=== PATIENT | female | born 1950 | race Caucasian/White ===

== ENCOUNTER → 2017-09-01 | Outpatient (CLI) | payer MEDICARE ==
--- NOTE | 2017-09-04 20:05 | Diagnostic Imaging Report ---
Bilateral screening mammogram 2D views with tomosynthesis. The current study was also evaluated with a Computer Aided Detection (CAD) system. INDICATION: Screening. No current complaints stated on the questionnaire. COMPARISON: 08/31/2016. FINDINGS: The breasts are composed of scattered fibroglandular densities. There are benign-appearing calcifications seen. Allowing for technique and positional differences, no suspicious change is seen. IMPRESSION: No significant change. ACR BI-RADS Category 2: Benign findings. Result letter will be mailed to the patient. Note: At least 10% of breast cancer is not imaged by mammography. Dictated by: Dictated on workstation # [id number]
== END ==
LOC: RAD 09:34
PROVIDERS: ATTEND Nurse Practitioner Family
DX: Z12.31 Encounter for screening mammogram for malignant neoplasm of breast (principal)
CPT/HCPCS: 77067

== ENCOUNTER → 2018-06-20 | Outpatient (CLI) | payer MEDICARE ==
--- NOTE | 2018-06-20 16:23 | Diagnostic Imaging Report ---
PROCEDURE: US right lower extremity venous. TECHNIQUE: Multiple real-time grayscale images were obtained over the right lower extremity in various projections. Additional duplex Doppler and color Doppler images were also obtained. INDICATION: Right leg pain. FINDINGS: There is no evidence of a right lower extremity DVT. The right lower extremity deep venous system shows normal compressibility with normal response to augmentation and Valsalva. There is a Dowell's cyst measuring 4.2 x 1.6 x 0.7 cm. IMPRESSION: 1. No evidence of right lower extremity DVT. 2. Dowell's cyst. Dictated by: Dictated on workstation # [id number]
== END ==
LOC: RAD 15:39
PROVIDERS: ATTEND Nurse Practitioner Family
DX: M71.21 Synovial cyst of popliteal space [Baker], right knee (principal); M79.604 Pain in right leg

== ENCOUNTER → 2018-06-22 | Outpatient (CLI) | payer MEDICARE ==
--- NOTE | 2018-06-22 11:53 | Diagnostic Imaging Report ---
PROCEDURE: MRI right joint lower extremity without contrast. TECHNIQUE: Multiplanar, multisequence non contrast-enhanced MRI of the right lower extremity was accomplished. INDICATION: Posterior knee pain of three weeks' duration, difficulty walking, no known discrete injury. FINDINGS: There is a small popliteal fossa Dowell's cyst measuring 1.3 x 0.5 x 1.9 cm, decreased from earlier ultrasound when it measured 4.2 x 1.6 x 0.7 cm. There is some adjacent nonloculated fluid peripheral to the elongated cyst, and it is presumed to reflect interval partial cystic rupture and decompression. The popliteus is intact, and no evidence for soft tissue signal intensity mass in the posterior knee. There is some subcutaneous edema anteriorly as well as tricompartmental osteoarthritis. Tibiofemoral disease is medial greater than lateral and the patellofemoral disease is lateral greater than medial. There is a subcortical cyst in the patella at its apex and upper lateral facet with generalized articular cartilage thinning. There is mild thinning of the trochlear cartilage without full-thickness defect. The retinaculum is intact. The medial and lateral collateral ligament complex components crossing the knee joint are intact. The patellar and quadriceps tendons are intact. There is medial and lateral meniscal intrasubstance degeneration without convincing evidence for angelic meniscal tear or displacement. The ACL and PCL are intact. IMPRESSION: When correlated with recent ultrasound, there has been partial rupture and decompression of the Dowell's cyst with adjacent nonloculated fluid. Residual cystic dimensions above. Joint effusion, tricompartmental osteoarthritis, meniscal degeneration. No tendon or ligament rupture. No loose body or fracture. Dictated by: Dictated on workstation # [id number]
== END ==
LOC: RAD 08:39
PROVIDERS: ATTEND Nurse Practitioner Family
DX: M66.0 Rupture of popliteal cyst (principal); M17.11 Unilateral primary osteoarthritis, right knee
CPT/HCPCS: 73721

== ENCOUNTER 2018-09-05 22:27 | Emergency (ER) | payer MEDICARE ==
[~2018-09-05] VITALS: Ht 162.6 cm; Wt 102.1 kg
--- OUTSIDE RECORDS SUMMARY | 2018-09-05 22:35 | XMS REPORT | CCD ---
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 Name Role Phone Inez Morris PP Unavailable CCM Unavailable Summary Purpose Interface Exchange Insurance Providers Payer name Policy type / Coverage type Covered constitution party ID Effective Begin Date Effective End Date WPS Medicare Part B Medicare Part B [id number] 2015 Unknown AARP Medicare Part B [id number] 2015 Unknown Family history Mother Diagnosis Age At Onset Hypertension Unknown Diabetes Unknown Brother Diagnosis Age At Onset Coronary Artery Disease Unknown Diabetes mellitus Type 2 Unknown Father Diagnosis Age At Onset Diabetes Unknown lung cancer Unknown Social History Social History Element Codes Description Effective Dates Marital status Unknown 05/07/2014 Number of children Unknown 3 05/07/2014 Living arrangements Unknown House 05/07/2014 Number of adults in household Unknown 1 05/07/2014 Education level Unknown Post-Graduate 05/07/2014 Employment Unknown Retired 05/07/[address]: 091537789 Never smoker 05/07/[address]: 262657924 Never drinks alcohol 05/07/2014 Has the patient ever used illegal drugs? Unknown Has never used illegal drugs 05/07/2014 Allergies, Adverse Reactions, Alerts Substance Reaction Codes Entered Date Inactivated Date Status * NO KNOWN FOOD ALLERGIES Unknown 05/07/2014 No Inactive Date Active hydrocodone Unknown 05/07/2014 No Inactive Date Active Past Medical History Illness Codes Condition Status Onset Date Resolved Date Essential (primary) hypertension ICD-9: 401.1 ICD-10: I10 Active 12/07/2016 Unknown Insomnia due to medical condition ICD-9: 327.01 ICD-10: G47.01 Active 06/07/2018 Unknown Other obesity due to excess calories ICD-9: 278.00 ICD-10: E66.09 Active 05/07/2014 Unknown Tinea corporis ICD-9: 110.5 ICD-10: B35.4 Active 06/07/2018 Unknown Type 2 diabetes mellitus with diabetic autonomic (poly) neuropathy ICD-9: 250.60 ICD-10: E11.43 Active 07/24/2017 Unknown Mixed hyperlipidemia ICD-9: 272.2 ICD-10: E78.2 Active 08/02/2016 Unknown Type 2 diabetes mellitus without complications ICD-9: 250.00 ICD-10: E11.9 Active 05/15/2014 Unknown Other acute sinusitis ICD-9: 461.8 ICD-10: J01.80 Active 11/30/2016 Unknown Other allergic rhinitis ICD-9: 477.8 ICD-10: J30.89 Active 11/02/2016 Unknown Encounter for immunization ICD-9: V04.81 ICD-10: Z23 Active 07/26/2016 Unknown Encounter for screening mammogram for malignant neoplasm of breast ICD-9: V76.12 ICD-10: Z12.31 Active 06/08/2017 Unknown Mixed hyperlipidemia ICD-9: 272.4 ICD-10: E78.2 Active 07/26/2016 Unknown Mixed incontinence ICD -9: 788.33 ICD-10: N39.46 Active 12/07/2016 Unknown Acute nasopharyngitis [common cold] ICD-9: 460 ICD-10: J00 Active 11/02/2016 Unknown Actinic keratosis ICD- 9: 702.0 ICD-10: L57.0 Active 08/02/2016 Unknown Inflamed seborrheic keratosis ICD-9: 702.11 ICD-10: L82.0 Active 08/02/2016 Unknown Essential (primary) hypertension ICD-9: 401.9 ICD-10: I10 Active 07/26/2016 Unknown Encounter for general adult medical examination without abnormal findings ICD-9: V70.0 ICD-10: Z00.00 Active 12/30/2015 Unknown Rash and other nonspecific skin eruption ICD-9: 782.1 ICD-10: R21 Active 11/03/2015 Unknown Encounter for gynecological examination (general) (routine ) without abnormal findings ICD-9: V72.31 ICD-10: Z01.419 Active 08/01/2014 Unknown Heel pain ICD-9: 729.5 Active 12/10/2014 Unknown Plantar fascia syndrome ICD-9: 728.71 Active 12/10/2014 Unknown Osteoarthritis Unknown Active 08/01/2014 Unknown ROUTINE GYNE EXAM ICD- 9: V72.31 Active 08/01/2014 Unknown DIABETES TYPE II ICD-9 : 250.00 Active 05/15/2014 Unknown Depression Unknown Active 05/07/2014 Unknown Diabetes Unknown Active 05/07/2014 Unknown Hyperlipidemia Unknown Active 05/07/2014 Unknown Hypertension Unknown Active 05/07/2014 Unknown Depressive disorder ICD-9: 311 Active 05/07/2014 Unknown ESSENTIAL HYPERTENSION ICD-9: 401.9 Active 05/07/2014 Unknown HYPERLIPIDEMIA ICD-9: 272.4 Active 05/07/2014 Unknown Myalgia and myositis ICD-9: 729.1 Active 05/07/2014 Unknown OBESITY ICD-9: 278.00 Active 05/07/2014 Unknown Urinary urgency ICD-9 : 788.63 Active 05/07/2014 Unknown Problems Condition Codes Effective Dates Condition Status Essential (primary) hypertension ICD-9: 401.1 ICD-10: I10 12/07/2016 Active Insomnia due to medical condition ICD-9: 327.01 ICD-10: G47.01 06/07/2018 Active Other obesity due to excess calories ICD-9: 278.00 ICD-10: E66.09 05/07/2014 Active Tinea corporis ICD-9: 110.5 ICD-10: B35.4 06/07/2018 Active Type 2 diabetes mellitus with diabetic autonomic (poly) neuropathy ICD-9: 250.60 ICD-10: E11.43 07/24/2017 Active Mixed hyperlipidemia ICD-9: 272.2 ICD-10: E78.2 08/02/2016 Active Type 2 diabetes mellitus without complications ICD-9: 250.00 ICD-10: E11.9 05/15/2014 Active Other acute sinusitis ICD-9: 461.8 ICD-10: J01.80 11/30/2016 Active Other allergic rhinitis ICD-9: 477.8 ICD-10: J30.89 11/02/2016 Active Encounter for immunization ICD-9: V04.81 ICD-10: Z23 07/26/2016 Active Encounter for screening mammogram for malignant neoplasm of breast ICD-9: V76.12 ICD-10: Z12.31 06/08/2017 Active Mixed hyperlipidemia ICD-9: 272.4 ICD-10: E78.2 07/26/2016 Active Mixed incontinence ICD -9: 788.33 ICD-10: N39.46 12/07/2016 Active Acute nasopharyngitis [common cold] ICD-9: 460 ICD-10: J00 11/02/2016 Active Actinic keratosis ICD- 9: 702.0 ICD-10: L57.0 08/02/2016 Active Inflamed seborrheic keratosis ICD-9: 702.11 ICD-10: L82.0 08/02/2016 Active Essential (primary) hypertension ICD-9: 401.9 ICD-10: I10 07/26/2016 Active Encounter for general adult medical examination without abnormal findings ICD-9: V70.0 ICD-10: Z00.00 12/30/2015 Active Rash and other nonspecific skin eruption ICD-9: 782.1 ICD-10: R21 11/03/2015 Active Encounter for gynecological examination (general) (routine ) without abnormal findings ICD-9: V72.31 ICD-10: Z01.419 08/01/2014 Active Heel pain ICD-9: 729.5 12/10/2014 Active Plantar fascia syndrome ICD-9: 728.71 12/10/2014 Active Osteoarthritis Unknown 08/01/2014 Active ROUTINE GYNE EXAM ICD- 9: V72.31 08/01/2014 Active DIABETES TYPE II ICD-9 : 250.00 05/15/2014 Active Depression Unknown 05/07/2014 Active Diabetes Unknown 05/07/2014 Active Hyperlipidemia Unknown 05/07/2014 Active Hypertension Unknown 05/07/2014 Active Depressive disorder ICD-9: 311 05/07/2014 Active ESSENTIAL HYPERTENSION ICD-9: 401.9 05/07/2014 Active HYPERLIPIDEMIA ICD-9: 272.4 05/07/2014 Active Myalgia and myositis ICD-9: 729.1 05/07/2014 Active OBESITY ICD-9: 278.00 05/07/2014 Active Urinary urgency ICD-9 : 788.63 05/07/2014 Active Medications Medication Codes Instructions Start Date Stop Date Status Fill Instructions alprazolam 0.25 mg tablet RxNorm: 905594 1 Tablet(s) PO TID as needed 06/08/2018 03/04/2019 Active nystatin 100,000 unit/gram topical cream RxNorm: 413140 1 Gram(s) TOP TID 06/07/2018 06/26/2018 Active scopolamine 1 mg over 3 days transdermal patch RxNorm: 732748 1 Patch TD Q72H 06/07/2018 06/19/2018 Active metformin 500 mg tablet RxNorm: 194758 TAKE 1/2 TABLET TWICE DAILY 04/12/2018 04/06/2019 Active oxybutynin chloride ER 10 mg tablet,extended release 24 hr RxNorm: 743520 1 Tablet (s) PO daily 03/01/2018 02/23/2019 Active citalopram 20 mg tablet RxNorm: 057234 TAKE 1 TABLET EVERY DAY 01/15/2018 01/09/2019 Active atorvastatin 10 mg tablet RxNorm: 248416 TAKE 1/2 TABLET DAILY 01/03/2018 12/28/2018 Active oxybutynin chloride ER 10 mg tablet,extended release 24 hr RxNorm: 682802 1 Tablet (s) PO daily 12/07/2017 02/28/2018 Inactive Kenalog 40 mg/mL suspension for injection RxNorm: 5190183 1 Milliliter(s) Inj 11/20/2017 11/20/2017 Inactive Keflex 500 mg capsule RxNorm: 263200 1 Capsule(s) PO TID 201711/29/2017 Inactive losartan 25 mg tablet RxNorm: 919787 TAKE 1 TABLET EVERY DAY 11/07/2018 Active Valtrex 1 gram tablet RxNorm: 996384 1 Tablet(s) PO daily as needed 09/20/2017 No Stop Date Active Valtrex 1 gram tablet RxNorm: 506627 1 Tablet(s) PO daily as needed 06/28/2017 09/19/2017 Inactive Transderm-Scop 1.5 mg transdermal patch (1 mg over 3 days) RxNorm: 244372 1 Patch TD Q72H 06/08/2017 06/20/2017 Inactive nystatin 100,000 unit/gram topical cream RxNorm: 934188 1 Gram(s) TOP TID 06/08/2017 06/27/2017 Inactive alprazolam 0.25 mg tablet RxNorm: 497324 1 Tablet(s) PO TID as needed 04/21/2017 07/19/2017 Inactive metformin 500 mg tablet RxNorm: 901574 1/2 Tablet(s) PO BID 09/201701/19/2018 Inactive estradiol 0.5 mg tablet RxNorm: 953921 1 Tablet(s) PO BID 01/2001/14/2018 Inactive metformin 500 mg tablet RxNorm: 404302 1/2 Tablet(s) PO BID 04/201701/24/2017 Inactive estradiol 0.5 mg tablet RxNorm: 184120 1 Tablet(s) PO BID 01/1601/19/2017 Inactive metformin 500 mg tablet RxNorm: 123144 1/2 Tablet(s) PO BID 12/201601/19/2017 Inactive atorvastatin 10 mg tablet RxNorm: 286192 1/2 Tablet(s) PO daily 12/07/2016 12/01/2017 Inactive losartan 25 mg tablet RxNorm: 077016 1 Tablet(s) PO daily 201609/02/2017 Inactive trospium 20 mg tablet RxNorm: 240719 1 Tablet(s) PO BID 201612/06/2017 Inactive citalopram 20 mg tablet RxNorm: 435887 1 Tablet(s) PO daily 12/01/2017 Inactive Keflex 500 mg capsule RxNorm: 983539 1 Capsule(s) PO TID 201612/09/2016 Inactive trospium 20 mg tablet RxNorm: 731225 1 Tablet(s) PO BID 201612/06/2016 Inactive amoxicillin 500 mg capsule RxNorm: 329060 1 Capsule(s) PO TID 11/04/2016 11/13/2016 Inactive amoxicillin 500 mg capsule RxNorm: 957758 1 Capsule(s) PO TID 11/04/2016 11/03/2016 Inactive Flonase Allergy Relief 50 mcg/actuation nasal spray, suspension RxNorm: 1500635 1 [place] NASAL BID 11/03/2016 No Stop Date Active Myrbetriq 50 mg tablet,extended release RxNorm: 3288973 1 Tablet(s) PO daily 11/03/2016 12/06/2017 Inactive Zyrtec 10 mg tablet RxNorm: 7938454 1 Tablet(s) PO daily 11/0312/02/2016 Inactive estradiol 0.5 mg tablet RxNorm: 940569 1 Tablet(s) PO BID 08/0301/15/2017 Inactive Transderm-Scop 1.5 mg transdermal patch (1 mg over 3 days) RxNorm: 430137 1 Patch TD Q72H 08/03/2016 09/01/2016 Inactive trospium 20 mg tablet RxNorm: 408387 1 Tablet(s) PO BID 201511/21/2016 Inactive trospium 20 mg tablet RxNorm: 625732 1 Tablet(s) PO BID 201512/06/2017 Inactive Valtrex 1 gram tablet RxNorm: 798109 1 Tablet(s) PO TID as needed 05/04/2016 05/07/2016 Inactive Valtrex 1 gram tablet RxNorm: 149280 1 Tablet(s) PO TID as needed 05/04/2016 05/03/2016 Inactive lisinopril 10 mg tablet RxNorm: 543219 1 Tablet(s) PO daily 12/06/2016 Inactive estradiol 1 mg tablet RxNorm: 856035 Tablet(s) 1 TABLET(S) PO DAILY 04/29/2016 08/02/2016 Inactive metformin 500 mg tablet RxNorm: 184843 1/2 Tablet(s) PO BID 01/201601/15/2017 Inactive estradiol 1 mg tablet RxNorm: 933980 Tablet(s) 1 TABLET(S) PO DAILY 02/17/2016 04/28/2016 Inactive citalopram 20 mg tablet RxNorm: 831963 1 Tablet(s) PO daily 12/06/2016 Inactive atorvastatin 10 mg tablet RxNorm: 447222 1/2 Tablet(s) PO daily 01/12/2016 12/06/2016 Inactive atorvastatin 10 mg tablet RxNorm: 513673 1/2 Tablet(s) PO daily 01/05/2016 01/11/2016 Inactive lisinopril 10 mg tablet RxNorm: 998872 2 Tablet(s) PO daily 04/28/2016 Inactive citalopram 20 mg tablet RxNorm: 888877 1 Tablet(s) PO daily 01/11/2016 Inactive betamethasone valerate 0.1 % topical cream RxNorm: 691135 1 Application TOP TID as needed 12/31/2015 No Stop Date Active prednisone 20 mg tablet RxNorm: 360755 3 Tablet(s) PO daily 11/08/2015 Inactive estradiol 1 mg tablet RxNorm: 319900 1 TABLET(S) PO DAILY 201402/16/2016 Inactive aspirin 81 mg capsule,delayed release RxNorm: 409636 1 Capsule(s) PO daily 09/08/2015 09/01/2016 Inactive naproxen 500 mg tablet RxNorm: 311259 1 Tablet(s) PO BID as needed for pain 09/08/2015 09/01/2016 Inactive nystatin 100,000 unit/gram topical cream RxNorm: 870354 1 Gram(s) TOP TID 09/08/2015 09/27/2015 Inactive naproxen 500 mg tablet RxNorm: 769841 1 Tablet(s) PO BID as needed for pain 09/08/2015 09/07/2015 Inactive alprazolam 0.25 mg tablet RxNorm: 224106 1 Tablet(s) PO TID as needed 08/17/2015 04/20/2017 Inactive atorvastatin 10 mg tablet RxNorm: 575171 1/2 Tablet(s) PO daily 05/07/2015 01/04/2016 Inactive estradiol 1 mg tablet RxNorm: 776361 1 Tablet(s) PO daily 201408/12/2015 Inactive metformin 500 mg tablet RxNorm: 302213 1/2 Tablet(s) PO BID 11/201402/16/2016 Inactive citalopram 20 mg tablet RxNorm: 139995 1 Tablet(s) PO daily 11/201401/04/2016 Inactive metformin 500 mg tablet RxNorm: 760154 1/2 Tablet(s) PO BID 07/201501/14/2015 Inactive metformin 500 mg tablet RxNorm: 295477 1/2 Tablet(s) PO QHS x1 week then increase to 1/2 BID 12/23/2014 04/11/2018 Inactive metformin 500 mg tablet RxNorm: 334395 1/2 Tablet(s) PO QHS x1 week then 1/2 tab po BID there after 12/23/2014 12/22/2014 Inactive metformin 500 mg tablet RxNorm: 935322 1/2 Tablet(s) PO BID 07/201512/22/2014 Inactive Kenalog 40 mg/mL suspension for injection RxNorm: 6922509 1 Milliliter(s) Inj 12/19/2014 12/19/2014 Inactive lisinopril 10 mg tablet RxNorm: 704692 1 Tablet(s) PO daily 01/04/2016 Inactive alprazolam 0.25 mg tablet RxNorm: 568463 1 Tablet(s) PO TID as needed 12/10/2014 08/16/2015 Inactive trospium 20 mg tablet RxNorm: 082358 1 Tablet(s) PO BID START WITH DAILY, AND INCREASE TO BID IF NEEDED FOR TX OF INCONTINENCE 12/10/2014 07/26/2016 Inactive trospium 20 mg tablet RxNorm: 234625 1 Tablet(s) PO BID START WITH DAILY, AND INCREASE TO BID IF NEEDED FOR TX OF INCONTINENCE 11/28/2014 12/09/2014 Inactive trospium 20 mg tablet RxNorm: 625319 1 Tablet(s) PO BID START WITH DAILY, AND INCREASE TO BID IF NEEDED FOR TX OF INCONTINENCE 11/28/2014 11/27/2014 Inactive lisinopril 10 mg tablet RxNorm: 764206 TAKE ONE TABLET BY MOUTH DAILY 11/17/2014 12/16/2014 Inactive Vesicare 10 mg tablet RxNorm: 956503 1 Tablet(s) PO daily 201411/27/2014 Inactive lisinopril 10 mg tablet RxNorm: 072719 1 Tablet(s) PO daily 12/09/2014 Inactive lisinopril 10 mg tablet RxNorm: 486386 1 Tablet(s) PO daily 10/04/2014 Inactive citalopram 20 mg tablet RxNorm: 589626 1 Tablet(s) PO daily 01/14/2015 Inactive Vesicare 10 mg tablet RxNorm: 315242 1 Tablet(s) PO daily 201311/16/2014 Inactive lisinopril 10 mg tablet RxNorm: 464491 1/2 Tablet(s) PO daily 05/07/2014 06/05/2014 Inactive Belviq 10 mg tablet RxNorm: 2121258 1 Tablet(s) PO BID 201309/04/2014 Inactive atorvastatin 10 mg tablet RxNorm: 662918 1/2 Tablet(s) PO daily 05/07/2014 06/05/2014 Inactive citalopram 20 mg tablet RxNorm: 116179 1/2 Tablet(s) PO daily 05/07/2014 06/05/2014 Inactive estradiol 1 mg tablet RxNorm: 577478 1 Tablet(s) PO daily 201306/05/2014 Inactive Vitamin D3 1,000 unit capsule RxNorm: 437610 Capsule(s) PO daily No Start Date Active Centrum Silver tablet RxNorm: 1 Tablet(s) PO daily No Start Date Active Caltrate 600 + D oral RxNorm: 088806 oral No Start Date Active naproxen 500 mg tablet RxNorm: 921295 1 Tablet(s) PO BID as needed No Start Date 05/06/2014 Inactive Vesicare 10 mg tablet RxNorm: 373939 1 Tablet(s) PO daily No Start Date 07/20/2014 Inactive alprazolam 0.25 mg tablet RxNorm: 967774 1 Tablet(s) PO TID as needed No Start Date 12/09/2014 Inactive Medication Administered Medication Codes Instructions Start Date Status Kenalog 40 mg/mL suspension for injection RxNorm: 2788894 1Milliliter 11/20/2017 No longer Active Kenalog 40 mg/mL suspension for injection RxNorm: 7968340 1Milliliter 12/19/2014 No longer Active Immunizations Vaccine Codes Date Status Influenza CVX: 141 07/24/2017 completed Influenza CVX: 141 07/27/2016 completed Influenza CVX: 141 08/16/2015 completed Influenza CVX: 141 07/16/2013 completed Pneumococcal Unknown 07/16/2012 completed Assessments Condition Codes Effective Dates Other obesity due to excess calories ICD-10: E66.09 ICD-9: 278.00 06/07/2018 Insomnia due to medical condition ICD-10: G47.01 ICD-9: 327.01 06/07/2018 Essential (primary) hypertension ICD-10: I10 ICD-9: 401.1 06/07/2018 Type 2 diabetes mellitus with diabetic autonomic (poly)neuropathy ICD-10: E11.43 ICD-9: 250.60 06/07/2018 Tinea corporis ICD-10: B35.4 ICD-9: 110.5 06/07/2018 Type 2 diabetes mellitus without complications ICD-10: E11.9 ICD-9: 250.00 12/07/2017 Mixed hyperlipidemia ICD-10: E78.2 ICD-9: 272.2 12/07/2017 Other allergic rhinitis ICD-10: J30.89 ICD-9: 477.8 11/20/2017 Other acute sinusitis ICD-10: J01.80 ICD-9: 461.8 11/20/2017 Encounter for immunization ICD-10: Z23 ICD-9: V04.81 07/24/2017 Encounter for screening mammogram for malignant neoplasm of breast ICD-10: Z12.31 ICD-9: V76.12 06/08/2017 Mixed hyperlipidemia ICD-10: E78.2 ICD-9: 272.4 06/08/2017 Mixed incontinence ICD-10: N39.46 ICD-9: 788.33 12/07/2016 Acute nasopharyngitis [common cold] ICD-10: J00 ICD-9: 460 11/03/2016 Inflamed seborrheic keratosis ICD-10: L82.0 ICD-9: 702.11 08/03/2016 Actinic keratosis ICD-10: L57.0 ICD-9: 702.0 08/03/2016 Essential (primary) hypertension ICD-10: I10 ICD-9: 401.9 07/27/2016 Encounter for general adult medical examination without abnormal findings ICD-10: Z00.00 ICD-9: V70.0 12/31/2015 Rash and other nonspecific skin eruption ICD-10: R21 ICD-9: 782.1 11/04/2015 Encounter for gynecological examination (general) (routine) without abnormal findings ICD-10: Z01.419 ICD-9: V72.31 09/08/2015 Right foot pain ICD-9: 729.5 02/19/2015 Plantar fascia syndrome ICD-9: 728.71 02/2015 ESSENTIAL HYPERTENSION ICD-9: 401.9 09/05 Depressive disorder ICD-9: 311 2013 ROUTINE GYNE EXAM ICD-9: V72.31 2013 DIABETES TYPE II ICD-9: 250.00 2013 Myalgia and myositis ICD-9: 729.1 2013 OBESITY ICD-9: 278.00 05/07/2014 Urinary urgency ICD-9: 788.63 05/07/2014 HYPERLIPIDEMIA ICD-9: 272.4 05/07/2014 Reason For Visit Reason For Visit Effective Dates Notes weight gain/obesity 06/07/2018 sinus congestion 12/07/2017 ongoing sinus congestion 11/20/2017 diabetes mellitus 07/24/2017 hypertension 06/08/2017 hypertension 12/07/2016 sinus congestion 11/30/2016 cough 11/03/2016 hypertension 08/03/2016 vaccination against influenza 07/27/2016 hypertension 04/05/2016 Annual Medicare Wellness Exam 12/31/2015 rash 11/04/2015 well woman exam (40-65 years) 09/08/2015 foot pain 02/19/2015 Right heel pain 12/18/2014 Right heel pain 12/10/2014 Right urinary incontinence 09/05/2014 well woman exam (40-65 years) 08/01/2014 urinary incontinence 05/07/2014 Results Observation Observation Code Item Item Code Result Date Comp Metabolic Trw683 NA 139 mEq/L 05/31/2018 Comp Metabolic Xfi532 K 4.0 mEq/L 05/31/2018 Comp Metabolic Thb651 CL 103 mEq/L 05/31/2018 Comp Metabolic Uzn583 CO2 28.0 mEq/L 05/31/2018 Comp Metabolic Qzh762 ANION GAP 12 05/31/2018 Comp Metabolic Uhg217 GLUCOSE 119 mg/dL 05/31/2018 Comp Metabolic Sav767 Creat 0.8 mg/dL 05/31/2018 Comp Metabolic Ffz087 eGFR 74 ml/min/1.73m2 05/31/2018 Comp Metabolic Mzt025 BUN 14 mg/dL 05/31/2018 Comp Metabolic Uuk345 B/C Ratio 17.1 Ratio 05/31/2018 Comp Metabolic Koy624 CALCIUM 8.9 mg/dL 05/31/2018 Comp Metabolic Zqq118 ALK PHOS 63 U/L 05/31/2018 Comp Metabolic Rno618 AST(SGOT) 16 U/L 05/31/2018 Comp Metabolic Ftc331 ALT(SGPT) 14 U/L 05/31/2018 Comp Metabolic Pzd253 BILI T 0.7 mg/dL 05/31/2018 Comp Metabolic Rep945 ALBUMIN 3.7 g/dL 05/31/2018 Comp Metabolic Lak032 TPRO 6.3 g/dL 05/31/2018 Comp Metabolic Isa803 GLOB 2.6 g/dL 05/31/2018 Comp Metabolic Coj786 A/G Ratio 1.4 Ratio 05/31/2018 Comp Metabolic Ejc988 Osmo 279 mOsmo 05/31/2018 %Hba1C Qfo210 % HbA1c 65485-4 6.2 % 05/31/2018 %Hba1C Vhu379 Gluc Ave 131 mg/dL 05/31/2018 Cbc With Differential Ord2 WBC 5.90 K/ul 05/31/2018 Cbc With Differential Ord2 RBC 4.15 M/ul 05/31/2018 Cbc With Differential Ord2 HGB 12.3 g/dl 05/31/2018 Cbc With Differential Ord2 HCT 38.5 % 05/31/2018 Cbc With Differential Ord2 Neut% 60.2 % 05/31/2018 Cbc With Differential Ord2 MCV 92.8 fl 05/31/2018 Cbc With Differential Ord2 Lymph% 26.6 % 05/31/2018 Cbc With Differential Ord2 MCH 29.6 pg 05/31/2018 Cbc With Differential Ord2 [place]% 5.9 % 05/31/2018 Cbc With Differential Ord2 Eos% 6.3 % 05/31/2018 Cbc With Differential Ord2 MCHC 31.9 pg 05/31/2018 Cbc With Differential Ord2 Baso% 1.0 % 05/31/2018 Cbc With Differential Ord2 PLT 253 K/ul 05/31/2018 Cbc With Differential Ord2 RDW 13.2 % 05/31/2018 Cbc With Differential Ord2 Neut ABS# 3.55 K/ul 05/31/2018 Cbc With Differential Ord2 Lymph ABS# 1.57 K/ul 05/31/2018 Cbc With Differential Ord2 [place] ABS# 0.4 K/ul 05/31/2018 Cbc With Differential Ord2 Eos ABS# 0.4 K/ul 05/31/2018 Cbc With Differential Ord2 Baso ABS# 0.1 K/ul 05/31/2018 Lipid Ord30 CHOL 169 mg/dL 05/31/2018 Lipid Ord30 HDL 62.0 mg/dl 05/31/2018 Lipid Ord30 TRIG 103 mg/dL 05/31/2018 Lipid Ord30 LDL 86 mg/dL 05/31/2018 Lipid Ord30 C/HDL 2.7 Ratio 05/31/2018 Tsh Ord6 TSH (3rd IS) 1.72 uIU/mL 05/31/2018 %Hba1C Dss159 % HbA1c 68700-3 5.8 % 12/01/2017 %Hba1C Wsa025 Gluc Ave 120 mg/dL 12/01/2017 Lipid Ord30 CHOL 156 mg/dL 12/01/2017 Lipid Ord30 HDL 73.0 mg/dl 12/01/2017 Lipid Ord30 TRIG 50 mg/dL 12/01/2017 Lipid Ord30 LDL 73 mg/dL 12/01/2017 Lipid Ord30 C/HDL 2.1 Ratio 12/01/2017 Comp Metabolic Ufe484 NA 140 mEq/L 12/01/2017 Comp Metabolic Pnm410 K 4.1 mEq/L 12/01/2017 Comp Metabolic Ycv184 CL 105 mEq/L 12/01/2017 Comp Metabolic Itm880 CO2 29.0 mEq/L 12/01/2017 Comp Metabolic Dgk790 ANION GAP 10 12/01/2017 Comp Metabolic Ure555 GLUCOSE 91 mg/dL 12/01/2017 Comp Metabolic Wqk699 Creat 0.8 mg/dL 12/01/2017 Comp Metabolic Uby980 eGFR 73 ml/min/1.73m2 12/01/2017 Comp Metabolic Mzn492 BUN 19 mg/dL 12/01/2017 Comp Metabolic Ovv983 B/C Ratio 22.9 Ratio 12/01/2017 Comp Metabolic Gvx377 CALCIUM 9.3 mg/dL 12/01/2017 Comp Metabolic Rix277 ALK PHOS 73 U/L 12/01/2017 Comp Metabolic Uzc585 AST(SGOT) 17 U/L 12/01/2017 Comp Metabolic Rus578 ALT(SGPT) 13 U/L 12/01/2017 Comp Metabolic Rbh260 BILI T 0.8 mg/dL 12/01/2017 Comp Metabolic Hzg305 ALBUMIN 3.8 g/dL 12/01/2017 Comp Metabolic Dwz232 TPRO 6.4 g/dL 12/01/2017 Comp Metabolic Akl963 GLOB 2.6 g/dL 12/01/2017 Comp Metabolic Jpl001 A/G Ratio 1.5 Ratio 12/01/2017 Comp Metabolic Dlv797 Osmo 281 mOsmo 12/01/2017 Cbc With Differential Ord2 WBC 6.31 K/ul 12/01/2017 Cbc With Differential Ord2 RBC 4.18 M/ul 12/01/2017 Cbc With Differential Ord2 HGB 12.5 g/dl 12/01/2017 Cbc With Differential Ord2 HCT 37.9 % 12/01/2017 Cbc With Differential Ord2 Neut% 56.5 % 12/01/2017 Cbc With Differential Ord2 MCV 90.7 fl 12/01/2017 Cbc With Differential Ord2 Lymph% 29.6 % 12/01/2017 Cbc With Differential Ord2 MCH 29.9 pg 12/01/2017 Cbc With Differential Ord2 [place]% 6.7 % 12/01/2017 Cbc With Differential Ord2 Eos% 6.2 % 12/01/2017 Cbc With Differential Ord2 MCHC 33.0 pg 12/01/2017 Cbc With Differential Ord2 Baso% 1.0 % 12/01/2017 Cbc With Differential Ord2 PLT 264 K/ul 12/01/2017 Cbc With Differential Ord2 RDW 13.3 % 12/01/2017 Cbc With Differential Ord2 Neut ABS# 3.57 K/ul 12/01/2017 Cbc With Differential Ord2 Lymph ABS# 1.87 K/ul 12/01/2017 Cbc With Differential Ord2 [place] ABS# 0.4 K/ul 12/01/2017 Cbc With Differential Ord2 Eos ABS# 0.4 K/ul 12/01/2017 Cbc With Differential Ord2 Baso ABS# 0.1 K/ul 12/01/2017 Cbc With Differential Ord2 WBC 5.43 K/ul 06/01/2017 Cbc With Differential Ord2 RBC 4.11 M/ul 06/01/2017 Cbc With Differential Ord2 HGB 12.2 g/dl 06/01/2017 Cbc With Differential Ord2 HCT 37.3 % 06/01/2017 Cbc With Differential Ord2 Neut% 56.8 % 06/01/2017 Cbc With Differential Ord2 MCV 90.8 fl 06/01/2017 Cbc With Differential Ord2 Lymph% 27.3 % 06/01/2017 Cbc With Differential Ord2 [place]% 7.6 % 06/01/2017 Cbc With Differential Ord2 MCH 29.7 pg 06/01/2017 Cbc With Differential Ord2 MCHC 32.7 pg 06/01/2017 Cbc With Differential Ord2 Eos% 7.2 % 06/01/2017 Cbc With Differential Ord2 Baso% 1.1 % 06/01/2017 Cbc With Differential Ord2 PLT 222 K/ul 06/01/2017 Cbc With Differential Ord2 Neut ABS# 3.09 K/ul 06/01/2017 Cbc With Differential Ord2 RDW 13.3 % 06/01/2017 Cbc With Differential Ord2 Lymph ABS# 1.48 K/ul 06/01/2017 Cbc With Differential Ord2 [place] ABS# 0.4 K/ul 06/01/2017 Cbc With Differential Ord2 Eos ABS# 0.4 K/ul 06/01/2017 Cbc With Differential Ord2 Baso ABS# 0.1 K/ul 06/01/2017 Lipid Ord30 CHOL 161 mg/dL 06/01/2017 Lipid Ord30 HDL 58.0 mg/dl 06/01/2017 Lipid Ord30 TRIG 117 mg/dL 06/01/2017 Lipid Ord30 LDL 80 mg/dL 06/01/2017 Lipid Ord30 C/HDL 2.8 Ratio 06/01/2017 %Hba1C Syz126 % HbA1c 12837-9 5.9 % 06/01/2017 %Hba1C Rqu339 Gluc Ave 123 mg/dL 06/01/2017 Comp Metabolic Xhl594 NA 140 mEq/L 06/01/2017 Comp Metabolic Sfd005 K 3.9 mEq/L 06/01/2017 Comp Metabolic Wwc868 CL 105 mEq/L 06/01/2017 Comp Metabolic Boa026 CO2 27.0 mEq/L 06/01/2017 Comp Metabolic Pia507 ANION GAP 12 06/01/2017 Comp Metabolic Ssa888 GLUCOSE 103 mg/dL 06/01/2017 Comp Metabolic Pag638 Creat 0.8 mg/dL 06/01/2017 Comp Metabolic Pmb978 eGFR 82 ml/min/1.73m2 06/01/2017 Comp Metabolic Zem377 BUN 16 mg/dL 06/01/2017 Comp Metabolic Kki688 B/C Ratio 21.3 Ratio 06/01/2017 Comp Metabolic Knd378 CALCIUM 8.8 mg/dL 06/01/2017 Comp Metabolic Spo865 ALK PHOS 61 U/L 06/01/2017 Comp Metabolic Wmr832 AST(SGOT) 17 U/L 06/01/2017 Comp Metabolic Xgr229 ALT(SGPT) 14 U/L 06/01/2017 Comp Metabolic Cpw072 BILI T 0.8 mg/dL 06/01/2017 Comp Metabolic Qwo022 ALBUMIN 3.6 g/dL 06/01/2017 Comp Metabolic Oaa787 TPRO 6.1 g/dL 06/01/2017 Comp Metabolic Imd646 GLOB 2.5 g/dL 06/01/2017 Comp Metabolic Fvl556 A/G Ratio 1.5 Ratio 06/01/2017 Comp Metabolic Jrh168 Osmo 281 mOsmo 06/01/2017 Lipid Ord30 CHOL 161 mg/dL 11/30/2016 Lipid Ord30 HDL 69.0 mg/dl 11/30/2016 Lipid Ord30 TRIG 82 mg/dL 11/30/2016 Lipid Ord30 LDL 76 mg/dL 11/30/2016 Lipid Ord30 C/HDL 2.3 Ratio 11/30/2016 %Hba1C Qwd716 % HbA1c 09168-7 5.8 % 11/30/2016 %Hba1C Qwy194 Gluc Ave 120 mg/dL 11/30/2016 Cbc With Differential Ord2 WBC 7.23 K/ul 11/30/2016 Cbc With Differential Ord2 RBC 4.15 M/ul 11/30/2016 Cbc With Differential Ord2 HGB 12.3 g/dl 11/30/2016 Cbc With Differential Ord2 HCT 37.8 % 11/30/2016 Cbc With Differential Ord2 Neut% 66.7 % 11/30/2016 Cbc With Differential Ord2 MCV 91.1 fl 11/30/2016 Cbc With Differential Ord2 Lymph% 19.2 % 11/30/2016 Cbc With Differential Ord2 Slope% 5.4 % 11/30/2016 Cbc With Differential Ord2 MCH 29.6 pg 11/30/2016 Cbc With Differential Ord2 Eos% 7.9 % 11/30/2016 Cbc With Differential Ord2 MCHC 32.5 pg 11/30/2016 Cbc With Differential Ord2 Baso% 0.8 % 11/30/2016 Cbc With Differential Ord2 PLT 238 K/ul 11/30/2016 Cbc With Differential Ord2 Neut ABS# 4.82 K/ul 11/30/2016 Cbc With Differential Ord2 RDW 13.2 % 11/30/2016 Cbc With Differential Ord2 Lymph ABS# 1.39 K/ul 11/30/2016 Cbc With Differential Ord2 Slope ABS# 0.4 K/ul 11/30/2016 Cbc With Differential Ord2 Eos ABS# 0.6 K/ul 11/30/2016 Cbc With Differential Ord2 Baso ABS# 0.1 K/ul 11/30/2016 Comp Metabolic Wmj327 NA 139 mEq/L 11/30/2016 Comp Metabolic Qlb486 K 4.1 mEq/L 11/30/2016 Comp Metabolic Qyw266 CL 102 mEq/L 11/30/2016 Comp Metabolic Qnc229 CO2 30.0 mEq/L 11/30/2016 Comp Metabolic Wri030 ANION GAP 11 11/30/2016 Comp Metabolic Wpo959 GLUCOSE 93 mg/dL 11/30/2016 Comp Metabolic Ncv951 Creat 0.9 mg/dL 11/30/2016 Comp Metabolic Lde085 eGFR 68 ml/min/1.73m2 11/30/2016 Comp Metabolic Foz959 BUN 15 mg/dL 11/30/2016 Comp Metabolic Ksv061 B/C Ratio 17.0 Ratio 11/30/2016 Comp Metabolic Qwk035 CALCIUM 9.6 mg/dL 11/30/2016 Comp Metabolic Msr944 ALK PHOS 61 U/L 11/30/2016 Comp Metabolic Emq558 AST(SGOT) 19 U/L 11/30/2016 Comp Metabolic Nxv852 ALT(SGPT) 14 U/L 11/30/2016 Comp Metabolic Gsb107 BILI T 0.7 mg/dL 11/30/2016 Comp Metabolic Uvy940 ALBUMIN 4.0 g/dL 11/30/2016 Comp Metabolic Mbu712 TPRO 6.6 g/dL 11/30/2016 Comp Metabolic Rsu110 GLOB 2.6 g/dL 11/30/2016 Comp Metabolic Zxl986 A/G Ratio 1.5 Ratio 11/30/2016 Comp Metabolic Ekx082 Osmo 278 mOsmo 11/30/2016 Tsh Ord6 hTSH II 1.43 uIU/mL 07/27/2016 Lipid Ord30 CHOL 153 mg/dL 07/27/2016 Lipid Ord30 HDL 62.0 mg/dl 07/27/2016 Lipid Ord30 TRIG 82 mg/dL 07/27/2016 Lipid Ord30 LDL 75 mg/dL 07/27/2016 Lipid Ord30 C/HDL 2.5 Ratio 07/27/2016 Comp Metabolic Qfd023 NA 137 mEq/L 07/27/2016 Comp Metabolic Tiq108 K 3.9 mEq/L 07/27/2016 Comp Metabolic Mcf511 CL 103 mEq/L 07/27/2016 Comp Metabolic Tcw064 CO2 27.0 mEq/L 07/27/2016 Comp Metabolic Wgc923 ANION GAP 11 07/27/2016 Comp Metabolic Cxc928 GLUCOSE 107 mg/dL 07/27/2016 Comp Metabolic Ryc370 Creat 0.9 mg/dL 07/27/2016 Comp Metabolic Rae331 eGFR 71 ml/min/1.73m2 07/27/2016 Comp Metabolic Asa000 BUN 22 mg/dL 07/27/2016 Comp Metabolic Red099 B/C Ratio 25.9 Ratio 07/27/2016 Comp Metabolic Lke120 CALCIUM 9.2 mg/dL 07/27/2016 Comp Metabolic Gab357 ALK PHOS 66 U/L 07/27/2016 Comp Metabolic Dqg472 AST(SGOT) 20 U/L 07/27/2016 Comp Metabolic Vub214 ALT(SGPT) 15 U/L 07/27/2016 Comp Metabolic Uik401 BILI T 0.6 mg/dL 07/27/2016 Comp Metabolic Pvc361 ALBUMIN 4.0 g/dL 07/27/2016 Comp Metabolic Isu770 TPRO 6.5 g/dL 07/27/2016 Comp Metabolic Rzo217 GLOB 2.5 g/dL 07/27/2016 Comp Metabolic Pqw181 A/G Ratio 1.6 Ratio 07/27/2016 Comp Metabolic Ils902 Osmo 278 mOsmo 07/27/2016 Cbc With Differential Ord2 WBC 6.24 K/ul 07/27/2016 Cbc With Differential Ord2 RBC 4.12 M/ul 07/27/2016 Cbc With Differential Ord2 HGB 12.3 g/dl 07/27/2016 Cbc With Differential Ord2 Neut% 57.9 % 07/27/2016 Cbc With Differential Ord2 HCT 37.6 % 07/27/2016 Cbc With Differential Ord2 MCV 91.3 fl 07/27/2016 Cbc With Differential Ord2 Lymph% 28.5 % 07/27/2016 Cbc With Differential Ord2 MCH 29.9 pg 07/27/2016 Cbc With Differential Ord2 Slope% 5.8 % 07/27/2016 Cbc With Differential Ord2 Eos% 7.2 % 07/27/2016 Cbc With Differential Ord2 MCHC 32.7 pg 07/27/2016 Cbc With Differential Ord2 Baso% 0.6 % 07/27/2016 Cbc With Differential Ord2 PLT 254 K/ul 07/27/2016 Cbc With Differential Ord2 RDW 13.1 % 07/27/2016 Cbc With Differential Ord2 Neut ABS# 3.61 K/ul 07/27/2016 Cbc With Differential Ord2 Lymph ABS# 1.78 K/ul 07/27/2016 Cbc With Differential Ord2 Slope ABS# 0.4 K/ul 07/27/2016 Cbc With Differential Ord2 Eos ABS# 0.5 K/ul 07/27/2016 Cbc With Differential Ord2 Baso ABS# 0.0 K/ul 07/27/2016 %Hba1C Kmo264 % HbA1c 01097-4 5.9 % 07/27/2016 %Hba1C Mmx441 Gluc Ave 123 mg/dL 07/27/2016 Lipid Ord30 CHOL 143 mg/dL 03/30/2016 Lipid Ord30 HDL 50.0 mg/dl 03/30/2016 Lipid Ord30 TRIG 128 mg/dL 03/30/2016 Lipid Ord30 LDL 67 mg/dL 03/30/2016 Lipid Ord30 C/HDL 2.9 Ratio 03/30/2016 Tsh Ord6 hTSH II 1.00 uIU/mL 03/30/2016 %Hba1C Erf878 % HbA1c 76677-6 6.3 % 03/30/2016 %Hba1C Stv883 Gluc Ave 134 mg/dL 03/30/2016 Cbc With Differential Ord2 WBC 7.16 K/ul 03/30/2016 Cbc With Differential Ord2 RBC 4.36 M/ul 03/30/2016 Cbc With Differential Ord2 HGB 12.7 g/dl 03/30/2016 Cbc With Differential Ord2 Neut% 61.9 % 03/30/2016 Cbc With Differential Ord2 HCT 39.6 % 03/30/2016 Cbc With Differential Ord2 Lymph% 25.4 % 03/30/2016 Cbc With Differential Ord2 MCV 90.8 fl 03/30/2016 Cbc With Differential Ord2 MCH 29.1 pg 03/30/2016 Cbc With Differential Ord2 Slope% 6.3 % 03/30/2016 Cbc With Differential Ord2 MCHC 32.1 pg 03/30/2016 Cbc With Differential Ord2 Eos% 5.7 % 03/30/2016 Cbc With Differential Ord2 PLT 288 K/ul 03/30/2016 Cbc With Differential Ord2 Baso% 0.7 % 03/30/2016 Cbc With Differential Ord2 Neut ABS# 4.43 K/ul 03/30/2016 Cbc With Differential Ord2 RDW 13.6 % 03/30/2016 Cbc With Differential Ord2 Lymph ABS# 1.82 K/ul 03/30/2016 Cbc With Differential Ord2 [place] ABS# 0.5 K/ul 03/30/2016 Cbc With Differential Ord2 Eos ABS# 0.4 K/ul 03/30/2016 Cbc With Differential Ord2 Baso ABS# 0.1 K/ul 03/30/2016 Comp Metabolic Msq724 NA 137 mEq/L 03/30/2016 Comp Metabolic Myt635 K 4.0 mEq/L 03/30/2016 Comp Metabolic Jzg120 CL 102 mEq/L 03/30/2016 Comp Metabolic Ivf645 CO2 29.0 mEq/L 03/30/2016 Comp Metabolic Eor895 ANION GAP 10 03/30/2016 Comp Metabolic Epk741 GLUCOSE 111 mg/dL 03/30/2016 Comp Metabolic Wkb237 Creat 1.0 mg/dL 03/30/2016 Comp Metabolic Cfq515 eGFR 61 ml/min/1.73m2 03/30/2016 Comp Metabolic Qzw026 BUN 19 mg/dL 03/30/2016 Comp Metabolic Qmz085 B/C Ratio 19.6 Ratio 03/30/2016 Comp Metabolic Mfn736 CALCIUM 9.4 mg/dL 03/30/2016 Comp Metabolic Esd071 ALK PHOS 64 U/L 03/30/2016 Comp Metabolic Tny994 AST(SGOT) 16 U/L 03/30/2016 Comp Metabolic Aft030 ALT(SGPT) 15 U/L 03/30/2016 Comp Metabolic Kgv867 BILI T 0.7 mg/dL 03/30/2016 Comp Metabolic Rai582 ALBUMIN 3.7 g/dL 03/30/2016 Comp Metabolic Wmv803 TPRO 6.3 g/dL 03/30/2016 Comp Metabolic Bwc803 GLOB 2.6 g/dL 03/30/2016 Comp Metabolic Buh121 A/G Ratio 1.4 Ratio 03/30/2016 Comp Metabolic Agq772 Osmo 277 mOsmo 03/30/2016 %Hba1C Keh352 % HbA1c 22760-9 6.2 % 08/31/2015 %Hba1C Zzc605 Gluc Ave 131 mg/dL 08/31/2015 Lipid Ord30 CHOL 157 mg/dL 08/31/2015 Lipid Ord30 HDL 64.0 mg/dl 08/31/2015 Lipid Ord30 TRIG 126 mg/dL 08/31/2015 Lipid Ord30 LDL 68 mg/dL 08/31/2015 Lipid Ord30 C/HDL 2.5 Ratio 08/31/2015 Cbc With Differential Ord2 WBC 6.0 K/uL 08/31/2015 Cbc With Differential Ord2 LYM 1.7 K/uL 08/31/2015 Cbc With Differential Ord2 LYM% 27.7 % 08/31/2015 Cbc With Differential Ord2 NEUT/GRAN 4.0 K/uL 08/31/2015 Cbc With Differential Ord2 NEUT/GRAN % 67.3 % 08/31/2015 Cbc With Differential Ord2 MID 0.3 K/uL 08/31/2015 Cbc With Differential Ord2 MID% 5.0 % 08/31/2015 Cbc With Differential Ord2 RBC 4.21 M/uL 08/31/2015 Cbc With Differential Ord2 HGB 12.2 g/dL 08/31/2015 Cbc With Differential Ord2 HCT 38.2 % 08/31/2015 Cbc With Differential Ord2 MCV 91 fL 08/31/2015 Cbc With Differential Ord2 MCH 29 pg 08/31/2015 Cbc With Differential Ord2 MCHC 32 g/dL 08/31/2015 Cbc With Differential Ord2 PLT 253 K/uL 08/31/2015 Cbc With Differential Ord2 RDW 13.5 % 08/31/2015 Comp Metabolic Rtt634 NA 143 mEq/L 08/31/2015 Comp Metabolic Ogk005 K 3.7 mEq/L 08/31/2015 Comp Metabolic Peg587 CL 105 mEq/L 08/31/2015 Comp Metabolic Hid188 CO2 24.0 mEq/L 08/31/2015 Comp Metabolic Bcc523 ANION GAP 18 08/31/2015 Comp Metabolic Mcy564 GLUCOSE 110 mg/dL 08/31/2015 Comp Metabolic Zsa995 Creat 0.8 mg/dL 08/31/2015 Comp Metabolic Udw145 eGFR 77 ml/min/1.73m2 08/31/2015 Comp Metabolic Bhz560 BUN 14 mg/dL 08/31/2015 Comp Metabolic Fcw884 B/C Ratio 17.5 Ratio 08/31/2015 Comp Metabolic Cpc245 CALCIUM 8.8 mg/dL 08/31/2015 Comp Metabolic Ilp518 ALK PHOS 61 U/L 08/31/2015 Comp Metabolic Efy802 AST(SGOT) 16 U/L 08/31/2015 Comp Metabolic Yqe249 ALT(SGPT) 14 U/L 08/31/2015 Comp Metabolic Una439 BILI T 0.5 mg/dL 08/31/2015 Comp Metabolic Ibu866 ALBUMIN 3.7 g/dL 08/31/2015 Comp Metabolic Cxb665 TPRO 6.1 g/dL 08/31/2015 Comp Metabolic Ibq095 GLOB 2.4 g/dL 08/31/2015 Comp Metabolic Ttw610 A/G Ratio 1.5 Ratio 08/31/2015 Comp Metabolic Wxn920 Osmo 286 mOsmo 08/31/2015 LIPID GRP HDL TEST 64 MG/DL 05/15/2014 LIPID GRP TRIG 95 MG/DL 05/15/2014 LIPID GRP TEST LDL 84 MG/DL 05/15/2014 LIPID GRP CHOL 167 MG/DL 05/15/2014 LIPID GRP RCHOL/HDL 2.61 RATIO 05/15/2014 LIPID GRP NON-HDL CH 103 MG/DL 05/15/2014 CBC [id number] WBC 5.9 10e9/L 05/15/2014 CBC [id number] RBC 4.08 10e12/L 05/15/2014 CBC 6681558 HGB 12.1 g/dL 05/15/2014 CBC [id number] HCT DET 37.0 % 05/15/2014 CBC 1499341 MCV 90.7 fL 05/15/2014 CBC [id number] MCH 29.7 pg 05/15/2014 CBC [id number] MCHC 32.7 g/dL 05/15/2014 CBC 5732767 PLT 243 10e9/L 05/15/2014 CBC 0410907 MPV 10.4 fL 05/15/2014 CBC [id number] MARVIN % 56.5 % 05/15/2014 CBC 1869434 LY % 29.8 % 05/15/2014 CBC [id number] MON % 6.4 % 05/15/2014 CBC 7212684 EOS % 6.1 % 05/15/2014 CBC 5750728 BASO % 1.2 % 05/15/2014 CBC 8308866 RDW 12.9 % 05/15/2014 CBC [id number] ABS MARVIN 3.33 10e9/L 05/15/2014 CBC [id number] ABS LYMPH 1.76 10e9/L 05/15/2014 CBC [id number] ABS MONO 0.38 10e9/L 05/15/2014 CBC [id number] ABS EOS 0.36 10e9/L 05/15/2014 CBC 0440822 ABS BASO 0.07 10e9/L 05/15/2014 CBC 7220761 RDW-SD 42.1 fL 05/15/2014 A1C HPLC 7778793 A1C HPLC 85023-2 6.0 % 05/15/2014 TSH [id number] TSH 1.749 uIU/ML 05/15/2014 CHEM 14 3621991 AST 21 U/L 05/15/2014 CHEM 14 0420672 ALT 16 IU/L 05/15/2014 CHEM 14 0264102 BUN 21 MG/DL 05/15/2014 CHEM 14 9468225 ALBUMIN 3.9 GM/DL 05/15/2014 CHEM 14 3936615 CHLORIDE 106 MMOL/L 05/15/2014 CHEM 14 1912558 BILI TOT 0.6 MG/DL 05/15/2014 CHEM 14 6056197 ALK PHOS 67 U/L 05/15/2014 CHEM 14 9364235 SODIUM 137 MMOL/L 05/15/2014 CHEM 14 9116909 CREATININE 1.00 MG/DL 05/15/2014 CHEM 14 0584187 CALCIUM 9.0 MG/DL 05/15/2014 CHEM 14 5124270 POTASSIUM 3.9 MMOL/L 05/15/2014 CHEM 14 0033726 PROT TOT 6.4 GM/DL 05/15/2014 CHEM 14 3554985 GLUCOSE 119 MG/DL 05/15/2014 CHEM 14 [id number] BICARB 24 MMOL/L 05/15/2014 CHEM 14 2049664 ANION GAP 7 MEQ/L 05/15/2014 GFR CALC 8608957 GFR AA >60 ML/MIN 05/15/2014 GFR CALC 0795362 GFR NON-AA 56.0L ML/MIN 05/15/2014 Review of Systems System Result Effective Dates Constitutional No recent illness 2017 Constitutional No anorexia 06/07/2018 Constitutional No night sweats 2017 Constitutional No chills 06/07/2018 Constitutional No diaphoresis 06/07/2018 Constitutional No fatigue 06/07/2018 Constitutional No fever 06/07/2018 Constitutional No malaise 06/07/2018 Constitutional obesity 06/07/2018 Eyes No eye discharge 06/07/2018 Eyes No eye erythema 06/07/2018 Ears/Nose/Throat/Neck No dizziness 2017 Ears/Nose/Throat/Neck No nasal discharge 06/07/2018 Ears/Nose/Throat/Neck No sore throat Ears/Nose/Throat/Neck No sinus congestion 06/07/2018 Cardiovascular No chest pain/pressure Cardiovascular No dyspnea 06/07/2018 Respiratory No chest congestion 2017 Respiratory cough 06/07/2018 Gastrointestinal No abdominal pain 2017 Gastrointestinal No constipation 2017 Gastrointestinal No diarrhea 06/07/2018 Gastrointestinal No nausea 06/07/2018 Gastrointestinal No vomiting 06/07/2018 Genitourinary/Nephrology No pelvic pain 06/07/2018 Musculoskeletal No joint complaint 2017 Dermatologic No rash 06/07/2018 Neurologic No dizziness 06/07/2018 Neurologic No headache 06/07/2018 Neurologic No neck pain 06/07/2018 Neurologic No syncope 06/07/2018 Psychiatric anxiety 06/07/2018 Psychiatric depression 06/07/2018 Endocrine No weight gain 06/07/2018 Endocrine diabetes mellitus type 2 2017 Endocrine obesity 06/07/2018 Constitutional weight gain 06/07/2018 Constitutional No recent illness 2017 Constitutional No anorexia 12/07/2017 Constitutional No night sweats 2017 Constitutional No chills 12/07/2017 Constitutional No diaphoresis 12/07/2017 Constitutional No fatigue 12/07/2017 Constitutional No fever 12/07/2017 Constitutional No malaise 12/07/2017 Constitutional obesity 12/07/2017 Eyes No eye discharge 12/07/2017 Eyes No eye erythema 12/07/2017 Ears/Nose/Throat/Neck No dizziness 2017 Ears/Nose/Throat/Neck No nasal discharge 12/07/2017 Ears/Nose/Throat/Neck No sore throat Ears/Nose/Throat/Neck No sinus congestion 12/07/2017 Cardiovascular No chest pain/pressure Cardiovascular No dyspnea 12/07/2017 Respiratory No chest congestion 2017 Respiratory cough 12/07/2017 Gastrointestinal No abdominal pain 2017 Gastrointestinal No constipation 2017 Gastrointestinal No diarrhea 12/07/2017 Gastrointestinal No nausea 12/07/2017 Gastrointestinal No vomiting 12/07/2017 Genitourinary/Nephrology No pelvic pain 12/07/2017 Musculoskeletal No joint complaint 2017 Dermatologic No rash 12/07/2017 Neurologic No dizziness 12/07/2017 Neurologic No headache 12/07/2017 Neurologic No neck pain 12/07/2017 Neurologic No syncope 12/07/2017 Psychiatric anxiety 12/07/2017 Psychiatric depression 12/07/2017 Endocrine No weight gain 12/07/2017 Endocrine diabetes mellitus type 2 2017 Endocrine obesity 12/07/2017 Constitutional recent illness 11/20/2017 Constitutional No chills 11/20/2017 Constitutional No diaphoresis 11/20/2017 Constitutional No fever 11/20/2017 Eyes No eye erythema 11/20/2017 Ears/Nose/Throat/Neck nasal allergies 02/2018 Ears/Nose/Throat/Neck nasal discharge 02/2018 Ears/Nose/Throat/Neck postnasal drip 02/2018 Ears/Nose/Throat/Neck sinus congestion Ears/Nose/Throat/Neck No sore throat 02/2018 Cardiovascular No chest pain/pressure 02/2018 Cardiovascular No dyspnea 11/20/2017 Respiratory No chest congestion 2017 Respiratory cough 11/20/2017 Respiratory No dyspnea 11/20/2017 Gastrointestinal No abdominal pain 2017 Gastrointestinal No constipation 2017 Gastrointestinal No diarrhea 11/20/2017 Gastrointestinal No nausea 11/20/2017 Gastrointestinal No vomiting 11/20/2017 Dermatologic No rash 11/20/2017 Neurologic No alteration of consciousness 11/20/2017 Neurologic No mental status change 2017 Constitutional No recent illness 2016 Constitutional No anorexia 07/24/2017 Constitutional No night sweats 2016 Constitutional No chills 07/24/2017 Constitutional No diaphoresis 07/24/2017 Constitutional No fatigue 07/24/2017 Constitutional No fever 07/24/2017 Constitutional No malaise 07/24/2017 Constitutional obesity 07/24/2017 Eyes No eye discharge 07/24/2017 Eyes No eye erythema 07/24/2017 Ears/Nose/Throat/Neck No dizziness 2016 Ears/Nose/Throat/Neck No nasal discharge 07/24/2017 Ears/Nose/Throat/Neck No sore throat 06/2017 Ears/Nose/Throat/Neck No sinus congestion 07/24/2017 Cardiovascular No chest pain/pressure 06/2017 Cardiovascular No dyspnea 07/24/2017 Respiratory No chest congestion 2016 Respiratory cough 07/24/2017 Gastrointestinal No abdominal pain 2016 Gastrointestinal No constipation 2016 Gastrointestinal No diarrhea 07/24/2017 Gastrointestinal No nausea 07/24/2017 Gastrointestinal No vomiting 07/24/2017 Genitourinary/Nephrology No pelvic pain 07/24/2017 Musculoskeletal No joint complaint 2016 Dermatologic No rash 07/24/2017 Neurologic No dizziness 07/24/2017 Neurologic No headache 07/24/2017 Neurologic No neck pain 07/24/2017 Neurologic No syncope 07/24/2017 Psychiatric anxiety 07/24/2017 Psychiatric depression 07/24/2017 Endocrine No weight gain 07/24/2017 Endocrine obesity 07/24/2017 Endocrine diabetes mellitus type 2 2016 Constitutional No recent illness 2016 Constitutional No anorexia 06/08/2017 Constitutional No night sweats 2016 Constitutional No chills 06/08/2017 Constitutional No diaphoresis 06/08/2017 Constitutional No fatigue 06/08/2017 Constitutional No fever 06/08/2017 Eyes No eye discharge 06/08/2017 Eyes No eye erythema 06/08/2017 Ears/Nose/Throat/Neck No dizziness 2016 Ears/Nose/Throat/Neck No nasal discharge 06/08/2017 Ears/Nose/Throat/Neck No sore throat Ears/Nose/Throat/Neck No sinus congestion 06/08/2017 Cardiovascular No chest pain/pressure Cardiovascular No dyspnea 06/08/2017 Respiratory No chest congestion 2016 Respiratory cough 06/08/2017 Gastrointestinal No abdominal pain 2016 Gastrointestinal No constipation 2016 Gastrointestinal No diarrhea 06/08/2017 Gastrointestinal No nausea 06/08/2017 Gastrointestinal No vomiting 06/08/2017 Genitourinary/Nephrology No pelvic pain 06/08/2017 Musculoskeletal No joint complaint 2016 Dermatologic No rash 06/08/2017 Neurologic No dizziness 06/08/2017 Neurologic No headache 06/08/2017 Neurologic No neck pain 06/08/2017 Neurologic No syncope 06/08/2017 Psychiatric anxiety 06/08/2017 Psychiatric depression 06/08/2017 Endocrine No weight gain 06/08/2017 Endocrine obesity 06/08/2017 Constitutional No malaise 06/08/2017 Constitutional obesity 06/08/2017 Constitutional No recent illness 2016 Constitutional No anorexia 12/07/2016 Constitutional No night sweats 2016 Constitutional No chills 12/07/2016 Constitutional No diaphoresis 12/07/2016 Constitutional No fatigue 12/07/2016 Constitutional No fever 12/07/2016 Eyes No eye discharge 12/07/2016 Eyes No eye erythema 12/07/2016 Ears/Nose/Throat/Neck No dizziness 2016 Ears/Nose/Throat/Neck No nasal discharge 12/07/2016 Ears/Nose/Throat/Neck No sore throat Ears/Nose/Throat/Neck No sinus congestion 12/07/2016 Cardiovascular No chest pain/pressure Cardiovascular No dyspnea 12/07/2016 Respiratory No chest congestion 2016 Respiratory cough 12/07/2016 Gastrointestinal No abdominal pain 2016 Gastrointestinal No constipation 2016 Gastrointestinal No diarrhea 12/07/2016 Gastrointestinal No nausea 12/07/2016 Gastrointestinal No vomiting 12/07/2016 Genitourinary/Nephrology No pelvic pain 12/07/2016 Musculoskeletal No joint complaint 2016 Dermatologic No rash 12/07/2016 Neurologic No dizziness 12/07/2016 Neurologic No headache 12/07/2016 Neurologic No neck pain 12/07/2016 Neurologic No syncope 12/07/2016 Psychiatric anxiety 12/07/2016 Psychiatric depression 12/07/2016 Endocrine No weight gain 12/07/2016 Endocrine obesity 12/07/2016 Constitutional recent illness 11/30/2016 Constitutional chills 11/30/2016 Constitutional No fever 11/30/2016 Eyes No eye erythema 11/30/2016 Ears/Nose/Throat/Neck nasal allergies Ears/Nose/Throat/Neck nasal discharge Ears/Nose/Throat/Neck postnasal drip Ears/Nose/Throat/Neck sinus congestion Cardiovascular No chest pain/pressure Cardiovascular No dyspnea 11/30/2016 Respiratory No chest congestion 2016 Respiratory cough 11/30/2016 Respiratory No dyspnea 11/30/2016 Gastrointestinal No abdominal pain 2016 Gastrointestinal No constipation 2016 Gastrointestinal No diarrhea 11/30/2016 Gastrointestinal No nausea 11/30/2016 Gastrointestinal No vomiting 11/30/2016 Dermatologic No rash 11/30/2016 Neurologic No alteration of consciousness 11/30/2016 Neurologic No mental status change 2016 Constitutional malaise 11/30/2016 Constitutional recent illness 11/03/2016 Constitutional No fever 11/03/2016 Eyes No eye erythema 11/03/2016 Ears/Nose/Throat/Neck nasal allergies Ears/Nose/Throat/Neck nasal discharge Ears/Nose/Throat/Neck postnasal drip Ears/Nose/Throat/Neck sinus congestion Cardiovascular No chest pain/pressure Cardiovascular No dyspnea 11/03/2016 Respiratory cough 11/03/2016 Respiratory No dyspnea 11/03/2016 Gastrointestinal No abdominal pain 2016 Gastrointestinal No constipation 2016 Gastrointestinal No diarrhea 11/03/2016 Gastrointestinal No nausea 11/03/2016 Gastrointestinal No vomiting 11/03/2016 Dermatologic No rash 11/03/2016 Neurologic No alteration of consciousness 11/03/2016 Neurologic No mental status change 2016 Constitutional No recent illness 2015 Constitutional No night sweats 2015 Constitutional No chills 08/03/2016 Constitutional No diaphoresis 08/03/2016 Constitutional No fatigue 08/03/2016 Constitutional No fever 08/03/2016 Constitutional insomnia 08/03/2016 Eyes No photophobia 08/03/2016 Eyes No cataract 08/03/2016 Eyes No glaucoma 08/03/2016 Eyes No macular degeneration 08/03/2016 Ears/Nose/Throat/Neck No dental pain Ears/Nose/Throat/Neck No dizziness 2015 Ears/Nose/Throat/Neck No dysphagia 2015 Ears/Nose/Throat/Neck No nasal allergies 08/03/2016 Ears/Nose/Throat/Neck No nasal discharge 08/03/2016 Ears/Nose/Throat/Neck No sore throat Ears/Nose/Throat/Neck No postnasal drip 08/03/2016 Ears/Nose/Throat/Neck sinus congestion Cardiovascular No chest pain/pressure Cardiovascular No dyspnea 08/03/2016 Cardiovascular No edema 08/03/2016 Cardiovascular No near-syncope/dizziness 08/03/2016 Cardiovascular No palpitations 2015 Respiratory No productive sputum 2015 Respiratory No chest congestion 2015 Respiratory No cigarette smoking 2015 Respiratory No cough 08/03/2016 Respiratory No dyspnea 08/03/2016 Gastrointestinal No abdominal pain 2015 Gastrointestinal No constipation 2015 Gastrointestinal No diarrhea 08/03/2016 Gastrointestinal No gastroesophageal reflux 08/03/2016 Gastrointestinal No melena 08/03/2016 Gastrointestinal No nausea 08/03/2016 Genitourinary/Nephrology No dysuria 08/03 Genitourinary/Nephrology No flank pain Musculoskeletal stiffness 08/03/2016 Musculoskeletal No swelling 08/03/2016 Musculoskeletal No joint complaint 2015 Dermatologic No rash 08/03/2016 Dermatologic No sores 08/03/2016 Neurologic No alteration of consciousness 08/03/2016 Neurologic No dizziness 08/03/2016 Neurologic No gait abnormality 2015 Neurologic No mental status change 2015 Psychiatric No anxiety 08/03/2016 Psychiatric No depression 08/03/2016 Constitutional No night sweats 2015 Constitutional No recent illness 2015 Constitutional No chills 04/05/2016 Constitutional No diaphoresis 04/05/2016 Constitutional No fatigue 04/05/2016 Constitutional No fever 04/05/2016 Constitutional insomnia 04/05/2016 Eyes No photophobia 04/05/2016 Eyes No cataract 04/05/2016 Eyes No glaucoma 04/05/2016 Eyes No macular degeneration 04/05/2016 Ears/Nose/Throat/Neck No dental pain Ears/Nose/Throat/Neck No dizziness 2015 Ears/Nose/Throat/Neck No dysphagia 2015 Ears/Nose/Throat/Neck No nasal allergies 04/05/2016 Ears/Nose/Throat/Neck No nasal discharge 04/05/2016 Ears/Nose/Throat/Neck No postnasal drip 04/05/2016 Ears/Nose/Throat/Neck sinus congestion Ears/Nose/Throat/Neck No sore throat Cardiovascular No chest pain/pressure Cardiovascular No dyspnea 04/05/2016 Cardiovascular No edema 04/05/2016 Cardiovascular No near-syncope/dizziness 04/05/2016 Cardiovascular No palpitations 2015 Respiratory No productive sputum 2015 Respiratory No chest congestion 2015 Respiratory No cigarette smoking 2015 Respiratory No cough 04/05/2016 Respiratory No dyspnea 04/05/2016 Gastrointestinal No abdominal pain 2015 Gastrointestinal No constipation 2015 Gastrointestinal No diarrhea 04/05/2016 Gastrointestinal No gastroesophageal reflux 04/05/2016 Gastrointestinal No melena 04/05/2016 Gastrointestinal No nausea 04/05/2016 Genitourinary/Nephrology No dysuria 04/05 Genitourinary/Nephrology No flank pain Musculoskeletal stiffness 04/05/2016 Musculoskeletal No swelling 04/05/2016 Musculoskeletal No joint complaint 2015 Dermatologic No rash 04/05/2016 Dermatologic No sores 04/05/2016 Neurologic No alteration of consciousness 04/05/2016 Neurologic No dizziness 04/05/2016 Neurologic No gait abnormality 2015 Neurologic No mental status change 2015 Psychiatric No anxiety 04/05/2016 Psychiatric No depression 04/05/2016 Constitutional No recent illness 2015 Constitutional No night sweats 2015 Constitutional No chills 12/31/2015 Constitutional No diaphoresis 12/31/2015 Constitutional No fatigue 12/31/2015 Constitutional insomnia 12/31/2015 Constitutional No fever 12/31/2015 Eyes No photophobia 12/31/2015 Eyes No cataract 12/31/2015 Eyes No glaucoma 12/31/2015 Eyes No macular degeneration 12/31/2015 Ears/Nose/Throat/Neck No dizziness 2015 Ears/Nose/Throat/Neck No dysphagia 2015 Ears/Nose/Throat/Neck No dental pain Ears/Nose/Throat/Neck No nasal allergies 12/31/2015 Ears/Nose/Throat/Neck No nasal discharge 12/31/2015 Ears/Nose/Throat/Neck sinus congestion Ears/Nose/Throat/Neck No postnasal drip 12/31/2015 Ears/Nose/Throat/Neck No sore throat Cardiovascular No chest pain/pressure Cardiovascular No dyspnea 12/31/2015 Cardiovascular No edema 12/31/2015 Cardiovascular No palpitations 2015 Cardiovascular No near-syncope/dizziness 12/31/2015 Respiratory No productive sputum 2015 Respiratory No chest congestion 2015 Respiratory No cigarette smoking 2015 Respiratory No cough 12/31/2015 Respiratory No dyspnea 12/31/2015 Gastrointestinal No constipation 2015 Gastrointestinal No diarrhea 12/31/2015 Gastrointestinal No abdominal pain 2015 Gastrointestinal No nausea 12/31/2015 Gastrointestinal No melena 12/31/2015 Gastrointestinal No gastroesophageal reflux 12/31/2015 Genitourinary/Nephrology No dysuria 12/30 Genitourinary/Nephrology No flank pain Musculoskeletal stiffness 12/31/2015 Musculoskeletal No swelling 12/31/2015 Musculoskeletal No joint complaint 2015 Dermatologic No rash 12/31/2015 Dermatologic No sores 12/31/2015 Neurologic No alteration of consciousness 12/31/2015 Neurologic No dizziness 12/31/2015 Neurologic No mental status change 2015 Neurologic No gait abnormality 2015 Psychiatric No anxiety 12/31/2015 Psychiatric No depression 12/31/2015 Constitutional No recent illness 2015 Constitutional No anorexia 11/04/2015 Constitutional No night sweats 2015 Constitutional No chills 11/04/2015 Constitutional No diaphoresis 11/04/2015 Constitutional No fatigue 11/04/2015 Constitutional No fever 11/04/2015 Eyes No eye discharge 11/04/2015 Eyes No eye erythema 11/04/2015 Ears/Nose/Throat/Neck No dizziness 2015 Ears/Nose/Throat/Neck No nasal discharge 11/04/2015 Ears/Nose/Throat/Neck No sore throat Ears/Nose/Throat/Neck No sinus congestion 11/04/2015 Cardiovascular No chest pain/pressure Cardiovascular No dyspnea 11/04/2015 Respiratory No chest congestion 2015 Respiratory No cough 11/04/2015 Gastrointestinal No abdominal pain 2015 Gastrointestinal No constipation 2015 Gastrointestinal No diarrhea 11/04/2015 Gastrointestinal No nausea 11/04/2015 Gastrointestinal No vomiting 11/04/2015 Musculoskeletal No joint complaint 2015 Dermatologic rash 11/04/2015 Psychiatric anxiety 11/04/2015 Psychiatric depression 11/04/2015 Neurologic No alteration of consciousness 11/04/2015 Neurologic No mental status change 2015 Constitutional No recent illness 2014 Constitutional No anorexia 09/08/2015 Constitutional No night sweats 2014 Constitutional No chills 09/08/2015 Constitutional No diaphoresis 09/08/2015 Constitutional No fatigue 09/08/2015 Constitutional No fever 09/08/2015 Eyes No eye discharge 09/08/2015 Eyes No eye erythema 09/08/2015 Ears/Nose/Throat/Neck No dizziness 2014 Ears/Nose/Throat/Neck No nasal discharge 09/08/2015 Ears/Nose/Throat/Neck No sore throat Ears/Nose/Throat/Neck No sinus congestion 09/08/2015 Cardiovascular No chest pain/pressure Cardiovascular No dyspnea 09/08/2015 Respiratory No chest congestion 2014 Respiratory No cough 09/08/2015 Gastrointestinal No abdominal pain 2014 Gastrointestinal No constipation 2014 Gastrointestinal No diarrhea 09/08/2015 Gastrointestinal No nausea 09/08/2015 Gastrointestinal No vomiting 09/08/2015 Genitourinary/Nephrology No pelvic pain 09/08/2015 Musculoskeletal No joint complaint 2014 Dermatologic No rash 09/08/2015 Neurologic No dizziness 09/08/2015 Neurologic No headache 09/08/2015 Neurologic No neck pain 09/08/2015 Neurologic No syncope 09/08/2015 Psychiatric anxiety 09/08/2015 Psychiatric depression 09/08/2015 Endocrine obesity 09/08/2015 Endocrine No weight gain 09/08/2015 Constitutional No recent illness 2014 Constitutional No anorexia 02/19/2015 Constitutional No night sweats 2014 Constitutional No chills 02/19/2015 Constitutional No diaphoresis 02/19/2015 Constitutional No fatigue 02/19/2015 Constitutional No fever 02/19/2015 Constitutional No insomnia 02/19/2015 Constitutional No malaise 02/19/2015 Constitutional No weight loss 02/19/2015 Constitutional No weight gain 02/19/2015 Musculoskeletal joint complaint 2014 Eyes No eye discharge 02/19/2015 Eyes No eye erythema 02/19/2015 Ears/Nose/Throat/Neck nasal allergies 04/2015 Ears/Nose/Throat/Neck nasal discharge 04/2015 Constitutional No recent illness 2014 Constitutional No chills 12/18/2014 Constitutional No fatigue 12/18/2014 Constitutional No fever 12/18/2014 Constitutional No insomnia 12/18/2014 Constitutional No malaise 12/18/2014 Musculoskeletal joint complaint 2014 Constitutional No recent illness 2014 Cardiovascular No chest pain/pressure Cardiovascular No dyspnea 12/10/2014 Cardiovascular No edema 12/10/2014 Respiratory No chest congestion 2014 Gastrointestinal No constipation 2014 Gastrointestinal No diarrhea 12/10/2014 Gastrointestinal No nausea 12/10/2014 Gastrointestinal No vomiting 12/10/2014 Genitourinary/Nephrology No dysuria 12/10 Psychiatric anxiety 12/10/2014 Psychiatric No depression 12/10/2014 Musculoskeletal stiffness 12/10/2014 Musculoskeletal bone pain 12/10/2014 Constitutional No anorexia 12/10/2014 Constitutional No night sweats 2014 Constitutional No chills 12/10/2014 Constitutional No diaphoresis 12/10/2014 Constitutional No fatigue 12/10/2014 Constitutional No fever 12/10/2014 Eyes No eye discharge 12/10/2014 Eyes No eye erythema 12/10/2014 Ears/Nose/Throat/Neck No dizziness 2014 Ears/Nose/Throat/Neck No nasal discharge 12/10/2014 Ears/Nose/Throat/Neck No sore throat Ears/Nose/Throat/Neck No sinus congestion 12/10/2014 Respiratory No cough 12/10/2014 Gastrointestinal No abdominal pain 2014 Genitourinary/Nephrology urinary urgency 12/10/2014 Genitourinary/Nephrology urinary frequency 12/10/2014 Genitourinary/Nephrology urinary incontinence 12/10/2014 Musculoskeletal No joint complaint 2014 Dermatologic No rash 12/10/2014 Neurologic No dizziness 12/10/2014 Neurologic No headache 12/10/2014 Neurologic No neck pain 12/10/2014 Neurologic No syncope 12/10/2014 Endocrine weight gain 12/10/2014 Endocrine obesity 12/10/2014 Constitutional No recent illness 2013 Constitutional No anorexia 09/05/2014 Constitutional No night sweats 2013 Constitutional No chills 09/05/2014 Constitutional No diaphoresis 09/05/2014 Constitutional No fatigue 09/05/2014 Constitutional No fever 09/05/2014 Eyes No eye discharge 09/05/2014 Eyes No eye erythema 09/05/2014 Ears/Nose/Throat/Neck No dizziness 2013 Ears/Nose/Throat/Neck No nasal discharge 09/05/2014 Ears/Nose/Throat/Neck No sore throat Ears/Nose/Throat/Neck No sinus congestion 09/05/2014 Cardiovascular No chest pain/pressure Cardiovascular No dyspnea 09/05/2014 Respiratory No chest congestion 2013 Respiratory No cough 09/05/2014 Gastrointestinal No abdominal pain 2013 Gastrointestinal No constipation 2013 Gastrointestinal No diarrhea 09/05/2014 Gastrointestinal No nausea 09/05/2014 Gastrointestinal No vomiting 09/05/2014 Musculoskeletal No joint complaint 2013 Dermatologic No rash 09/05/2014 Neurologic No dizziness 09/05/2014 Neurologic No headache 09/05/2014 Neurologic No neck pain 09/05/2014 Neurologic No syncope 09/05/2014 Psychiatric anxiety 09/05/2014 Psychiatric depression 09/05/2014 Endocrine weight gain 09/05/2014 Endocrine obesity 09/05/2014 Genitourinary/Nephrology urinary urgency 09/05/2014 Genitourinary/Nephrology urinary incontinence 09/05/2014 Genitourinary/Nephrology urinary frequency 09/05/2014 Constitutional No recent illness 2013 Constitutional No anorexia 08/01/2014 Constitutional No night sweats 2013 Constitutional No chills 08/01/2014 Constitutional No diaphoresis 08/01/2014 Constitutional No fatigue 08/01/2014 Constitutional No fever 08/01/2014 Eyes No eye discharge 08/01/2014 Eyes No eye erythema 08/01/2014 Ears/Nose/Throat/Neck No dizziness 2013 Ears/Nose/Throat/Neck No nasal discharge 08/01/2014 Ears/Nose/Throat/Neck No sore throat Ears/Nose/Throat/Neck No sinus congestion 08/01/2014 Cardiovascular No chest pain/pressure Cardiovascular No dyspnea 08/01/2014 Respiratory No chest congestion 2013 Respiratory No cough 08/01/2014 Gastrointestinal No abdominal pain 2013 Gastrointestinal No constipation 2013 Gastrointestinal No diarrhea 08/01/2014 Gastrointestinal No nausea 08/01/2014 Gastrointestinal No vomiting 08/01/2014 Musculoskeletal No joint complaint 2013 Dermatologic No rash 08/01/2014 Neurologic No dizziness 08/01/2014 Neurologic No headache 08/01/2014 Neurologic No neck pain 08/01/2014 Neurologic No syncope 08/01/2014 Psychiatric anxiety 08/01/2014 Psychiatric depression 08/01/2014 Endocrine weight gain 08/01/2014 Endocrine obesity 08/01/2014 Genitourinary/Nephrology No pelvic pain 08/01/2014 Constitutional No anorexia 05/07/2014 Constitutional No chills 05/07/2014 Constitutional No diaphoresis 05/07/2014 Constitutional No fatigue 05/07/2014 Constitutional No fever 05/07/2014 Constitutional No night sweats 2013 Constitutional No recent illness 2013 Eyes No eye discharge 05/07/2014 Eyes No eye erythema 05/07/2014 Ears/Nose/Throat/Neck No dizziness 2013 Ears/Nose/Throat/Neck No nasal discharge 05/07/2014 Ears/Nose/Throat/Neck No sinus congestion 05/07/2014 Ears/Nose/Throat/Neck No sore throat Cardiovascular No chest pain/pressure Cardiovascular No dyspnea 05/07/2014 Respiratory No chest congestion 2013 Respiratory No cough 05/07/2014 Gastrointestinal No abdominal pain 2013 Gastrointestinal No constipation 2013 Gastrointestinal No diarrhea 05/07/2014 Gastrointestinal No nausea 05/07/2014 Gastrointestinal No vomiting 05/07/2014 Musculoskeletal No joint complaint 2013 Dermatologic No rash 05/07/2014 Psychiatric depression 05/07/2014 Psychiatric anxiety 05/07/2014 Endocrine obesity 05/07/2014 Endocrine weight gain 05/07/2014 Neurologic No dizziness 05/07/2014 Neurologic No headache 05/07/2014 Neurologic No neck pain 05/07/2014 Neurologic No syncope 05/07/2014 Physical Exam Exam Name System Name Item Name Status Result Effective Dates Notes Full Exam - General 1994 Constitutional general appearance Development: well developed 06/07/2018 None Full Exam - General 1994 Constitutional general appearance Development: appears stated age 0806/07/2018 None Full Exam - General 1994 Constitutional general appearance Hygiene/Attention to Grooming: good hygiene 06/07/2018 None Full Exam - General 1994 Eyes conjunctiva /eyelids Overall: conjunctiva clear 06/07/2018 None Full Exam - General 1994 Eyes conjunctiva /eyelids Overall: cornea clear 06/07/2018 None Full Exam - General 1994 Eyes conjunctiva /eyelids Overall: eyelids normal 06/07/2018 None Full Exam - General 1994 Eyes pupils and irises Overall: pupils equal, round, reactive to light and accomodation 06/07/2018 None Full Exam - General 1994 Ears/Nose/Throat otoscopic exam Overall: external auditory canals clear 06/07/2018 None Full Exam - General 1994 Ears/Nose/Throat otoscopic exam Overall: tympanic membranes clear 06/07/2018 None Full Exam - General 1994 Ears/Nose/Throat lips/teeth/gingiva Overall: benign lips 06/07/2018 None Full Exam - General 1994 Ears/Nose/Throat lips/teeth/gingiva Overall: normal dentition 06/07/2018 None Full Exam - General 1994 Ears/Nose/Throat oral cavity/pharynx/larynx Overall: oral mucosa clear 06/07/2018 None Full Exam - General 1994 Ears/Nose/Throat oral cavity/pharynx/larynx Overall: oropharyngeal mucosa clear 06/07/2018 None Full Exam - General 1994 Ears/Nose/Throat oral cavity/pharynx/larynx Overall: hypopharynx benign 06/07/2018 None Full Exam - General 1994 Ears/Nose/Throat oral cavity/pharynx/larynx Overall: no masses 06/07/2018 None Full Exam - General 1994 Respiratory auscultation Overall: breath sounds clear bilaterally 06/07/2018 None Full Exam - General 1994 Respiratory respiratory effort/rhythm Overall: no retractions 06/07/2018 None Full Exam - General 1994 Respiratory respiratory effort/rhythm Overall: normal rate 06/07/2018 None Full Exam - General 1994 Cardiovascular extremities Overall: no clubbing 06/07/2018 None Full Exam - General 1994 Cardiovascular auscultation of heart Overall: regular rate 06/07/2018 None Full Exam - General 1994 Cardiovascular auscultation of heart Overall: normal heart sounds 06/07/2018 None Full Exam - General 1994 Abdomen abdominal exam Overall: no tenderness 06/07/2018 None Full Exam - General 1994 Abdomen abdominal exam Overall: normal bowel sounds 06/07/2018 None Full Exam - General 1994 Integument inspection of skin Overall: few scattered moles, no gross abnormalities 06/07/2018 None Full Exam - General 1994 Neurologic deep tendon reflexes Overall: deep tendon reflexes intact 06/07/2018 None Full Exam - General 1994 Neurologic sensation Touch: (specify location of deficit): pain intact 06/07/2018 None Full Exam - General 1994 Neurologic sensation Touch: (specify location of deficit): light touch decreased on plantar surface of feet bilaterally - intact on dorsum of foot 06/07/2018 None Full Exam - General 1994 Neurologic sensation Touch: (specify location of deficit): vibration decreased on plantar surface of feet and at ankles 06/07/2018 None Full Exam - General 1994 Neurologic cranial nerves Overall: crainial nerves 2 - 12 grossly intact 06/07/2018 None Full Exam - General 1994 Psychiatric orientation/consciousness Overall: oriented to person, place and time 06/07/2018 None Full Exam - General 1994 Psychiatric mood and affect Overall: normal mood and affect 06/07/2018 None Full Exam - General 1994 Constitutional general appearance Development: well developed 12/07/2017 None Full Exam - General 1994 Constitutional general appearance Development: appears stated age 0212/07/2017 None Full Exam - General 1994 Constitutional general appearance Hygiene/Attention to Grooming: good hygiene 12/07/2017 None Full Exam - General 1994 Eyes conjunctiva /eyelids Overall: conjunctiva clear 12/07/2017 None Full Exam - General 1994 Eyes conjunctiva /eyelids Overall: cornea clear 12/07/2017 None Full Exam - General 1994 Eyes conjunctiva /eyelids Overall: eyelids normal 12/07/2017 None Full Exam - General 1994 Eyes pupils and irises Overall: pupils equal, round, reactive to light and accomodation 12/07/2017 None Full Exam - General 1994 Ears/Nose/Throat otoscopic exam Overall: external auditory canals clear 12/07/2017 None Full Exam - General 1994 Ears/Nose/Throat otoscopic exam Overall: tympanic membranes clear 12/07/2017 None Full Exam - General 1994 Ears/Nose/Throat lips/teeth/gingiva Overall: benign lips 12/07/2017 None Full Exam - General 1994 Ears/Nose/Throat lips/teeth/gingiva Overall: normal dentition 12/07/2017 None Full Exam - General 1994 Ears/Nose/Throat oral cavity/pharynx/larynx Overall: oral mucosa clear 12/07/2017 None Full Exam - General 1994 Ears/Nose/Throat oral cavity/pharynx/larynx Overall: oropharyngeal mucosa clear 12/07/2017 None Full Exam - General 1994 Ears/Nose/Throat oral cavity/pharynx/larynx Overall: hypopharynx benign 12/07/2017 None Full Exam - General 1994 Ears/Nose/Throat oral cavity/pharynx/larynx Overall: no masses 12/07/2017 None Full Exam - General 1994 Respiratory auscultation Overall: breath sounds clear bilaterally 12/07/2017 None Full Exam - General 1994 Respiratory respiratory effort/rhythm Overall: no retractions 12/07/2017 None Full Exam - General 1994 Respiratory respiratory effort/rhythm Overall: normal rate 12/07/2017 None Full Exam - General 1994 Cardiovascular extremities Overall: no clubbing 12/07/2017 None Full Exam - General 1994 Cardiovascular auscultation of heart Overall: regular rate 12/07/2017 None Full Exam - General 1994 Cardiovascular auscultation of heart Overall: normal heart sounds 12/07/2017 None Full Exam - General 1994 Abdomen abdominal exam Overall: no tenderness 12/07/2017 None Full Exam - General 1994 Abdomen abdominal exam Overall: normal bowel sounds 12/07/2017 None Full Exam - General 1994 Integument inspection of skin Overall: few scattered moles, no gross abnormalities 12/07/2017 None Full Exam - General 1994 Neurologic deep tendon reflexes Overall: deep tendon reflexes intact 12/07/2017 None Full Exam - General 1994 Neurologic sensation Touch: (specify location of deficit): pain intact 12/07/2017 None Full Exam - General 1994 Neurologic sensation Touch: (specify location of deficit): light touch decreased on plantar surface of feet bilaterally - intact on dorsum of foot 12/07/2017 None Full Exam - General 1994 Neurologic sensation Touch: (specify location of deficit): vibration decreased on plantar surface of feet and at ankles 12/07/2017 None Full Exam - General 1994 Neurologic cranial nerves Overall: crainial nerves 2 - 12 grossly intact 12/07/2017 None Full Exam - General 1994 Psychiatric orientation/consciousness Overall: oriented to person, place and time 12/07/2017 None Full Exam - General 1994 Psychiatric mood and affect Overall: normal mood and affect 12/07/2017 None Full Exam - ENT Constitutional general appearance Overall: well nourished 11/20/2017 None Full Exam - ENT Constitutional general appearance Overall: well developed 11/20/2017 None Full Exam - ENT Constitutional general appearance Overall: in no acute distress 11/20/2017 None Full Exam - ENT Ears/Nose/Throat otoscopic exam Overall: external auditory canals normal 11/20/2017 None Full Exam - ENT Ears/Nose/Throat otoscopic exam Left tympanic membrane: air -fluid level 11/20/2017 None Full Exam - ENT Ears/Nose/Throat otoscopic exam Right tympanic membrane: air-fluid level 11/20/2017 None Full Exam - ENT Ears/Nose/Throat nasal mucosa, septum, turbinates Drainage: clear 11/20/2017 None Full Exam - ENT Ears/Nose/Throat nasal mucosa, septum, turbinates Drainage: yellow 11/20/2017 None Full Exam - ENT Ears/Nose/Throat lips/ teeth/gingiva Overall: benign lips 11/20/2017 None Full Exam - ENT Ears/Nose/Throat oropharynx Posterior Pharynx: clear post nasal drainage 11/20/2017 None Full Exam - ENT Face and Head palpation Left maxillary sinus: tender 11/20/2017 None Full Exam - ENT Face and Head palpation Right maxillary sinus: tender 11/20/2017 None Full Exam - ENT Respiratory inspection Overall: no retractions 11/20/2017 None Full Exam - ENT Respiratory inspection Overall: normal rate 02/2018 None Full Exam - ENT Respiratory auscultation Overall: breath sounds clear bilaterally 11/20/2017 None Full Exam - ENT Cardiovascular auscultation of heart Overall: regular rate 11/20/2017 None Full Exam - ENT Cardiovascular auscultation of heart Overall: normal heart sounds 11/20/2017 None Full Exam - ENT Lymphatic palpation of lymph nodes Overall: anterior cervical chain benign 11/20/2017 None Full Exam - ENT Lymphatic palpation of lymph nodes Overall: posterior cervical chain benign 11/20/2017 None Full Exam - ENT Neurologic mood and affect Overall: normal mood 11/20/2017 None Full Exam - ENT Neurologic mood and affect Overall: normal affect 11/20/2017 None Full Exam - ENT Neurologic orientation Overall: oriented to person, place and time 11/20/2017 None Full Exam - General 1994 Constitutional general appearance Development: appears stated age 1007/24/2017 None Full Exam - General 1994 Constitutional general appearance Development: well developed 07/24/2017 None Full Exam - General 1994 Constitutional general appearance Hygiene/Attention to Grooming: good hygiene 07/24/2017 None Full Exam - General 1994 Eyes conjunctiva /eyelids Overall: conjunctiva clear 07/24/2017 None Full Exam - General 1994 Eyes conjunctiva /eyelids Overall: cornea clear 07/24/2017 None Full Exam - General 1994 Eyes conjunctiva /eyelids Overall: eyelids normal 07/24/2017 None Full Exam - General 1994 Eyes pupils and irises Overall: pupils equal, round, reactive to light and accomodation 07/24/2017 None Full Exam - General 1994 Ears/Nose/Throat otoscopic exam Overall: external auditory canals clear 07/24/2017 None Full Exam - General 1994 Ears/Nose/Throat otoscopic exam Overall: tympanic membranes clear 07/24/2017 None Full Exam - General 1994 Ears/Nose/Throat lips/teeth/gingiva Overall: benign lips 07/24/2017 None Full Exam - General 1995 Ears/Nose/Throat lips/teeth/gingiva Overall: normal dentition 07/24/2017 None Full Exam - General 1994 Ears/Nose/Throat oral cavity/pharynx/larynx Overall: hypopharynx benign 07/24/2017 None Full Exam - General 1995 Ears/Nose/Throat oral cavity/pharynx/larynx Overall: no masses 07/24/2017 None Full Exam - General 1995 Ears/Nose/Throat oral cavity/pharynx/larynx Overall: oral mucosa clear 07/24/2017 None Full Exam - General 1995 Ears/Nose/Throat oral cavity/pharynx/larynx Overall: oropharyngeal mucosa clear 07/24/2017 None Full Exam - General 1994 Respiratory auscultation Overall: breath sounds clear bilaterally 07/24/2017 None Full Exam - General 1994 Respiratory respiratory effort/rhythm Overall: no retractions 07/24/2017 None Full Exam - General 1994 Respiratory respiratory effort/rhythm Overall: normal rate 07/24/2017 None Full Exam - General 1994 Cardiovascular extremities Overall: no clubbing 07/24/2017 None Full Exam - General 1994 Cardiovascular auscultation of heart Overall: normal heart sounds 07/24/2017 None Full Exam - General 1994 Cardiovascular auscultation of heart Overall: regular rate 07/24/2017 None Full Exam - General 1994 Abdomen abdominal exam Overall: no tenderness 07/24/2017 None Full Exam - General 1994 Abdomen abdominal exam Overall: normal bowel sounds 07/24/2017 None Full Exam - General 1994 Integument inspection of skin Overall: few scattered moles, no gross abnormalities 07/24/2017 None Full Exam - General 1994 Neurologic deep tendon reflexes Overall: deep tendon reflexes intact 07/24/2017 None Full Exam - General 1994 Neurologic cranial nerves Overall: crainial nerves 2 - 12 grossly intact 07/24/2017 None Full Exam - General 1994 Psychiatric orientation/consciousness Overall: oriented to person, place and time 07/24/2017 None Full Exam - General 1994 Psychiatric mood and affect Overall: normal mood and affect 07/24/2017 None Full Exam - General 1994 Neurologic sensation Touch: (specify location of deficit): pain intact 07/24/2017 None Full Exam - General 1994 Neurologic sensation Touch: (specify location of deficit): light touch decreased on plantar surface of feet bilaterally - intact on dorsum of foot 07/24/2017 None Full Exam - General 1994 Neurologic sensation Touch: (specify location of deficit): vibration decreased on plantar surface of feet and at ankles 07/24/2017 None Full Exam - Genitourinary/Female Constitutional general appearance Overall: well nourished 06/08/2017 None Full Exam - Genitourinary/Female Constitutional general appearance Overall: well developed 06/08/2017 None Full Exam - Genitourinary/Female Constitutional general appearance Overall: in no acute distress 06/08/2017 None Full Exam - Genitourinary/Female Eyes conjunctiva/eyelids Overall: conjunctiva clear 06/08/2017 None Full Exam - Genitourinary/Female Eyes pupils and irises Overall: pupils equal, round, reactive to light and accomodation 06/08/2017 None Full Exam - Genitourinary/Female Ears/Nose/Throat otoscopic exam Overall: external auditory canals clear 06/08/2017 None Full Exam - Genitourinary/Female Ears/Nose/Throat otoscopic exam Overall: tympanic membranes clear 06/08/2017 None Full Exam - Genitourinary/Female Ears/Nose/Throat oral cavity/pharynx/larynx Overall: oral mucosa clear 06/08/2017 None Full Exam - Genitourinary/Female Respiratory auscultation Overall: breath sounds clear bilaterally 06/08/2017 None Full Exam - Genitourinary/Female Respiratory respiratory effort/rhythm Overall: no retractions 06/08/2017 None Full Exam - Genitourinary/Female Respiratory respiratory effort/rhythm Overall: normal rate 06/08/2017 None Full Exam - Genitourinary/Female Cardiovascular auscultation of heart Overall: regular rate 06/08/2017 None Full Exam - Genitourinary/Female Cardiovascular auscultation of heart Overall: normal heart sounds 06/08/2017 None Full Exam - Genitourinary/Female Cardiovascular examination of vasculature Overall: no clubbing, cyanosis, edema 06/08/2017 None Full Exam - Genitourinary/Female Abdomen abdominal exam Overall: non tender, non distended 06/08/2017 None Full Exam - Genitourinary/Female Abdomen abdominal exam Overall: normal bowel sounds 06/08/2017 None Full Exam - Genitourinary/Female Abdomen abdominal exam Overall: no mass lesions 06/08/2017 None Full Exam - Genitourinary/Female Genitourinary breast inspection & palpation Overall: breasts symmetric and without lesions 06/08/2017 None Full Exam - Genitourinary/Female Genitourinary breast inspection & palpation Overall: breasts non-tender, no mass lesions 06/08/2017 None Full Exam - Genitourinary/Female Genitourinary breast inspection & palpation Overall: no nipple discharge 06/08/2017 None Full Exam - Genitourinary/Female Genitourinary external genitalia Overall: no discharge 06/08/2017 None Full Exam - Genitourinary/Female Genitourinary external genitalia Overall: no lesions 06/08/2017 None Full Exam - Genitourinary/Female Genitourinary bladder Palpation: non-tender 06/08/2017 None Full Exam - Genitourinary/Female Genitourinary bladder Palpation: no masses 06/08/2017 None Full Exam - Genitourinary/Female Genitourinary vagina Introitus: normal appearance 06/08/2017 None Full Exam - Genitourinary/Female Genitourinary vagina Vagina: no lesions present 06/08/2017 None Full Exam - Genitourinary/Female Genitourinary cervix Overall: cervix surgically absent 06/08/2017 None Full Exam - Genitourinary/Female Genitourinary uterus Overall: uterus surgically absent 06/08/2017 None Full Exam - Genitourinary/Female Genitourinary adnexa/parametria Overall: ovaries surgically absent 06/08/2017 None Full Exam - Genitourinary/Female Genitourinary anus and perineum Overall: good sphincter tone, no masses, no lesions 06/08/2017 None Full Exam - Genitourinary/Female Lymphatic inspection and palpation of nodes Overall: anterior cervical chain benign 06/08/2017 None Full Exam - Genitourinary/Female Lymphatic inspection and palpation of nodes Overall: posterior cervical chain benign 06/08/2017 None Full Exam - Genitourinary/Female Musculoskeletal head and neck Overall: head atraumatic 06/08/2017 None Full Exam - Genitourinary/Female Musculoskeletal gait and station Overall: normal gait 06/08/2017 None Full Exam - Genitourinary/Female Musculoskeletal gait and station Overall: normal station 06/08/2017 None Full Exam - Genitourinary/Female Integument inspection and palpation of skin Overall: no rash, lesions 06/08/2017 None Full Exam - Genitourinary/Female Neurologic mood and affect Overall: normal mood 06/08/2017 None Full Exam - Genitourinary/Female Neurologic mood and affect Overall: normal affect 06/08/2017 None Full Exam - Genitourinary/Female Neurologic orientation Overall: oriented to person, place and time 06/08/2017 None Full Exam - Genitourinary/Female Psychiatric orientation/consciousness Overall: oriented to person, place and time 06/08/2017 None Full Exam - Genitourinary/Female Constitutional general appearance Overall: well nourished 12/07/2016 None Full Exam - Genitourinary/Female Constitutional general appearance Overall: well developed 12/07/2016 None Full Exam - Genitourinary/Female Constitutional general appearance Overall: in no acute distress 12/07/2016 None Full Exam - Genitourinary/Female Eyes conjunctiva/eyelids Overall: conjunctiva clear 12/07/2016 None Full Exam - Genitourinary/Female Eyes pupils and irises Overall: pupils equal, round, reactive to light and accomodation 12/07/2016 None Full Exam - Genitourinary/Female Ears/Nose/Throat otoscopic exam Overall: external auditory canals clear 12/07/2016 None Full Exam - Genitourinary/Female Ears/Nose/Throat otoscopic exam Overall: tympanic membranes clear 12/07/2016 None Full Exam - Genitourinary/Female Ears/Nose/Throat oral cavity/pharynx/larynx Overall: oral mucosa clear 12/07/2016 None Full Exam - Genitourinary/Female Respiratory auscultation Overall: breath sounds clear bilaterally 12/07/2016 None Full Exam - Genitourinary/Female Respiratory respiratory effort/rhythm Overall: no retractions 12/07/2016 None Full Exam - Genitourinary/Female Respiratory respiratory effort/rhythm Overall: normal rate 12/07/2016 None Full Exam - Genitourinary/Female Cardiovascular auscultation of heart Overall: regular rate 12/07/2016 None Full Exam - Genitourinary/Female Cardiovascular auscultation of heart Overall: normal heart sounds 12/07/2016 None Full Exam - Genitourinary/Female Cardiovascular examination of vasculature Overall: no clubbing, cyanosis, edema 12/07/2016 None Full Exam - Genitourinary/Female Abdomen abdominal exam Overall: non tender, non distended 12/07/2016 None Full Exam - Genitourinary/Female Abdomen abdominal exam Overall: normal bowel sounds 12/07/2016 None Full Exam - Genitourinary/Female Abdomen abdominal exam Overall: no mass lesions 12/07/2016 None Full Exam - Genitourinary/Female Genitourinary breast inspection & palpation Overall: breasts symmetric and without lesions 12/07/2016 None Full Exam - Genitourinary/Female Genitourinary breast inspection & palpation Overall: breasts non-tender, no mass lesions 12/07/2016 None Full Exam - Genitourinary/Female Genitourinary breast inspection & palpation Overall: no nipple discharge 12/07/2016 None Full Exam - Genitourinary/Female Genitourinary external genitalia Overall: no discharge 12/07/2016 None Full Exam - Genitourinary/Female Genitourinary external genitalia Overall: no lesions 12/07/2016 None Full Exam - Genitourinary/Female Genitourinary bladder Palpation: non-tender 12/07/2016 None Full Exam - Genitourinary/Female Genitourinary bladder Palpation: no masses 12/07/2016 None Full Exam - Genitourinary/Female Genitourinary vagina Introitus: normal appearance 12/07/2016 None Full Exam - Genitourinary/Female Genitourinary vagina Vagina: no lesions present 12/07/2016 None Full Exam - Genitourinary/Female Genitourinary cervix Overall: cervix surgically absent 12/07/2016 None Full Exam - Genitourinary/Female Genitourinary uterus Overall: uterus surgically absent 12/07/2016 None Full Exam - Genitourinary/Female Genitourinary adnexa/parametria Overall: ovaries surgically absent 12/07/2016 None Full Exam - Genitourinary/Female Genitourinary anus and perineum Overall: good sphincter tone, no masses, no lesions 12/07/2016 None Full Exam - Genitourinary/Female Lymphatic inspection and palpation of nodes Overall: anterior cervical chain benign 12/07/2016 None Full Exam - Genitourinary/Female Lymphatic inspection and palpation of nodes Overall: posterior cervical chain benign 12/07/2016 None Full Exam - Genitourinary/Female Musculoskeletal head and neck Overall: head atraumatic 12/07/2016 None Full Exam - Genitourinary/Female Musculoskeletal gait and station Overall: normal gait 12/07/2016 None Full Exam - Genitourinary/Female Musculoskeletal gait and station Overall: normal station 12/07/2016 None Full Exam - Genitourinary/Female Integument inspection and palpation of skin Overall: no rash, lesions 12/07/2016 None Full Exam - Genitourinary/Female Neurologic mood and affect Overall: normal mood 12/07/2016 None Full Exam - Genitourinary/Female Neurologic mood and affect Overall: normal affect 12/07/2016 None Full Exam - Genitourinary/Female Neurologic orientation Overall: oriented to person, place and time 12/07/2016 None Full Exam - Genitourinary/Female Psychiatric orientation/consciousness Overall: oriented to person, place and time 12/07/2016 None Full Exam - ENT Constitutional general appearance Overall: well nourished 11/30/2016 None Full Exam - ENT Constitutional general appearance Overall: well developed 11/30/2016 None Full Exam - ENT Constitutional general appearance Overall: in no acute distress 11/30/2016 None Full Exam - ENT Ears/Nose/Throat otoscopic exam Overall: external auditory canals normal 11/30/2016 None Full Exam - ENT Ears/Nose/Throat otoscopic exam Left tympanic membrane: air -fluid level 11/30/2016 None Full Exam - ENT Ears/Nose/Throat otoscopic exam Right tympanic membrane: air-fluid level 11/30/2016 None Full Exam - ENT Ears/Nose/Throat nasal mucosa, septum, turbinates Drainage: clear 11/30/2016 None Full Exam - ENT Ears/Nose/Throat nasal mucosa, septum, turbinates Drainage: yellow 11/30/2016 None Full Exam - ENT Ears/Nose/Throat lips/ teeth/gingiva Overall: benign lips 11/30/2016 None Full Exam - ENT Ears/Nose/Throat oropharynx Posterior Pharynx: clear post nasal drainage 11/30/2016 None Full Exam - ENT Face and Head palpation Left maxillary sinus: tender 11/30/2016 None Full Exam - ENT Face and Head palpation Right maxillary sinus: tender 11/30/2016 None Full Exam - ENT Respiratory inspection Overall: no retractions 11/30/2016 None Full Exam - ENT Respiratory inspection Overall: normal rate None Full Exam - ENT Respiratory auscultation Overall: breath sounds clear bilaterally 11/30/2016 None Full Exam - ENT Cardiovascular auscultation of heart Overall: regular rate 11/30/2016 None Full Exam - ENT Cardiovascular auscultation of heart Overall: normal heart sounds 11/30/2016 None Full Exam - ENT Lymphatic palpation of lymph nodes Overall: anterior cervical chain benign 11/30/2016 None Full Exam - ENT Lymphatic palpation of lymph nodes Overall: posterior cervical chain benign 11/30/2016 None Full Exam - ENT Neurologic mood and affect Overall: normal mood 11/30/2016 None Full Exam - ENT Neurologic mood and affect Overall: normal affect 11/30/2016 None Full Exam - ENT Neurologic orientation Overall: oriented to person, place and time 11/30/2016 None Full Exam - ENT Constitutional general appearance Overall: well nourished 11/03/2016 None Full Exam - ENT Constitutional general appearance Overall: well developed 11/03/2016 None Full Exam - ENT Constitutional general appearance Overall: in no acute distress 11/03/2016 None Full Exam - ENT Ears/Nose/Throat otoscopic exam Overall: external auditory canals normal 11/03/2016 None Full Exam - ENT Ears/Nose/Throat otoscopic exam Left tympanic membrane: air -fluid level 11/03/2016 None Full Exam - ENT Ears/Nose/Throat otoscopic exam Right tympanic membrane: air-fluid level 11/03/2016 None Full Exam - ENT Ears/Nose/Throat lips/ teeth/gingiva Overall: benign lips 11/03/2016 None Full Exam - ENT Ears/Nose/Throat oropharynx Posterior Pharynx: clear post nasal drainage 11/03/2016 None Full Exam - ENT Respiratory inspection Overall: no retractions 11/03/2016 None Full Exam - ENT Respiratory inspection Overall: normal rate None Full Exam - ENT Respiratory auscultation Overall: breath sounds clear bilaterally 11/03/2016 None Full Exam - ENT Cardiovascular auscultation of heart Overall: regular rate 11/03/2016 None Full Exam - ENT Cardiovascular auscultation of heart Overall: normal heart sounds 11/03/2016 None Full Exam - ENT Lymphatic palpation of lymph nodes Overall: anterior cervical chain benign 11/03/2016 None Full Exam - ENT Lymphatic palpation of lymph nodes Overall: posterior cervical chain benign 11/03/2016 None Full Exam - ENT Neurologic mood and affect Overall: normal mood 11/03/2016 None Full Exam - ENT Neurologic mood and affect Overall: normal affect 11/03/2016 None Full Exam - ENT Neurologic orientation Overall: oriented to person, place and time 11/03/2016 None Full Exam - General 1994 Constitutional general appearance Overall: well developed 08/03/2016 None Full Exam - General 1994 Constitutional general appearance Overall: in no acute distress 08/03/2016 None Full Exam - General 1994 Constitutional general appearance Overall: well nourished 08/03/2016 None Full Exam - General 1994 Eyes conjunctiva /eyelids Overall: conjunctiva clear 08/03/2016 None Full Exam - General 1994 Eyes conjunctiva /eyelids Overall: cornea clear 08/03/2016 None Full Exam - General 1994 Eyes conjunctiva /eyelids Overall: eyelids normal 08/03/2016 None Full Exam - General 1994 Eyes pupils and irises Overall: pupils equal, round, reactive to light and accomodation 08/03/2016 None Full Exam - General 1994 Ears/Nose/Throat otoscopic exam Overall: external auditory canals clear 08/03/2016 None Full Exam - General 1994 Ears/Nose/Throat otoscopic exam Overall: tympanic membranes clear 08/03/2016 None Full Exam - General 1994 Ears/Nose/Throat lips/teeth/gingiva Overall: benign lips 08/03/2016 None Full Exam - General 1994 Ears/Nose/Throat oral cavity/pharynx/larynx Overall: oral mucosa clear 08/03/2016 None Full Exam - General 1994 Ears/Nose/Throat oral cavity/pharynx/larynx Overall: oropharyngeal mucosa clear 08/03/2016 None Full Exam - General 1994 Ears/Nose/Throat oral cavity/pharynx/larynx Overall: no masses 08/03/2016 None Full Exam - General 1994 Respiratory auscultation Overall: breath sounds clear bilaterally 08/03/2016 None Full Exam - General 1994 Respiratory respiratory effort/rhythm Overall: no retractions 08/03/2016 None Full Exam - General 1994 Respiratory respiratory effort/rhythm Overall: normal rate 08/03/2016 None Full Exam - General 1994 Cardiovascular extremities Overall: no clubbing 08/03/2016 None Full Exam - General 1994 Cardiovascular auscultation of heart Overall: regular rate 08/03/2016 None Full Exam - General 1994 Cardiovascular auscultation of heart Overall: normal heart sounds 08/03/2016 None Full Exam - General 1994 Abdomen abdominal exam Overall: no tenderness 08/03/2016 None Full Exam - General 1994 Abdomen abdominal exam Overall: normal bowel sounds 08/03/2016 None Full Exam - General 1994 Lymphatic neck nodes Overall: anterior cervical chain benign 08/03/2016 None Full Exam - General 1994 Lymphatic neck nodes Overall: posterior cervical chain benign 08/03/2016 None Full Exam - General 1994 Musculoskeletal spine, ribs and pelvis Overall: good posture 08/03/2016 None Full Exam - General 1994 Musculoskeletal gait and station Overall: normal gait 08/03/2016 None Full Exam - General 1994 Musculoskeletal gait and station Overall: normal station 08/03/2016 None Full Exam - General 1994 Neurologic gait Overall: no ataxia, no unsteadiness 08/03/2016 None Full Exam - General 1994 Neurologic cranial nerves Overall: crainial nerves 2 - 12 grossly intact 08/03/2016 None Full Exam - General 1994 Psychiatric orientation/consciousness Overall: oriented to person, place and time 08/03/2016 None Full Exam - General 1994 Psychiatric mood and affect Overall: normal mood and affect 08/03/2016 None Full Exam - General 1994 Psychiatric appearance Overall: well-groomed, good eye contact 08/03/2016 None Full Exam - General 1994 Psychiatric speech Overall: normal quality, no aphasia 08/03/2016 None Full Exam - General 1994 Psychiatric speech Overall: normal quality, quantity, rate 08/03/2016 None Full Exam - General 1994 Psychiatric thought Overall: normal form and content 08/03/2016 None Full Exam - General 1994 Integument inspection of skin Location: chest 08/03/2016 actinic keratosis x 2 and irritated archana K at clavicke/braline on left Full Exam - General 1994 Constitutional general appearance Overall: well developed 04/05/2016 None Full Exam - General 1994 Constitutional general appearance Overall: in no acute distress 04/05/2016 None Full Exam - General 1994 Constitutional general appearance Overall: well nourished 04/05/2016 None Full Exam - General 1994 Eyes conjunctiva /eyelids Overall: conjunctiva clear 04/05/2016 None Full Exam - General 1994 Eyes conjunctiva /eyelids Overall: cornea clear 04/05/2016 None Full Exam - General 1994 Eyes conjunctiva /eyelids Overall: eyelids normal 04/05/2016 None Full Exam - General 1994 Eyes pupils and irises Overall: pupils equal, round, reactive to light and accomodation 04/05/2016 None Full Exam - General 1994 Ears/Nose/Throat otoscopic exam Overall: external auditory canals clear 04/05/2016 None Full Exam - General 1994 Ears/Nose/Throat otoscopic exam Overall: tympanic membranes clear 04/05/2016 None Full Exam - General 1994 Ears/Nose/Throat lips/teeth/gingiva Overall: benign lips 04/05/2016 None Full Exam - General 1994 Ears/Nose/Throat oral cavity/pharynx/larynx Overall: oral mucosa clear 04/05/2016 None Full Exam - General 1994 Ears/Nose/Throat oral cavity/pharynx/larynx Overall: oropharyngeal mucosa clear 04/05/2016 None Full Exam - General 1994 Ears/Nose/Throat oral cavity/pharynx/larynx Overall: no masses 04/05/2016 None Full Exam - General 1994 Respiratory auscultation Overall: breath sounds clear bilaterally 04/05/2016 None Full Exam - General 1994 Respiratory respiratory effort/rhythm Overall: no retractions 04/05/2016 None Full Exam - General 1994 Respiratory respiratory effort/rhythm Overall: normal rate 04/05/2016 None Full Exam - General 1994 Cardiovascular extremities Overall: no clubbing 04/05/2016 None Full Exam - General 1994 Cardiovascular auscultation of heart Overall: regular rate 04/05/2016 None Full Exam - General 1994 Cardiovascular auscultation of heart Overall: normal heart sounds 04/05/2016 None Full Exam - General 1994 Abdomen abdominal exam Overall: no tenderness 04/05/2016 None Full Exam - General 1994 Abdomen abdominal exam Overall: normal bowel sounds 04/05/2016 None Full Exam - General 1994 Lymphatic neck nodes Overall: anterior cervical chain benign 04/05/2016 None Full Exam - General 1994 Lymphatic neck nodes Overall: posterior cervical chain benign 04/05/2016 None Full Exam - General 1994 Musculoskeletal spine, ribs and pelvis Overall: good posture 04/05/2016 None Full Exam - General 1994 Musculoskeletal gait and station Overall: normal gait 04/05/2016 None Full Exam - General 1994 Musculoskeletal gait and station Overall: normal station 04/05/2016 None Full Exam - General 1994 Integument inspection of skin Overall: few scattered moles, no gross abnormalities 04/05/2016 None Full Exam - General 1994 Integument inspection of skin Consistency: dry 04/05/2016 right index finger Full Exam - General 1994 Neurologic gait Overall: no ataxia, no unsteadiness 04/05/2016 None Full Exam - General 1994 Neurologic cranial nerves Overall: crainial nerves 2 - 12 grossly intact 04/05/2016 None Full Exam - General 1994 Psychiatric orientation/consciousness Overall: oriented to person, place and time 04/05/2016 None Full Exam - General 1994 Psychiatric mood and affect Overall: normal mood and affect 04/05/2016 None Full Exam - General 1994 Psychiatric appearance Overall: well-groomed, good eye contact 04/05/2016 None Full Exam - General 1994 Psychiatric speech Overall: normal quality, no aphasia 04/05/2016 None Full Exam - General 1994 Psychiatric speech Overall: normal quality, quantity, rate 04/05/2016 None Full Exam - General 1994 Psychiatric thought Overall: normal form and content 04/05/2016 None Full Exam - General 1994 Constitutional general appearance Overall: well developed 12/31/2015 None Full Exam - General 1994 Constitutional general appearance Overall: in no acute distress 12/31/2015 None Full Exam - General 1994 Constitutional general appearance Overall: well nourished 12/31/2015 None Full Exam - General 1994 Eyes conjunctiva /eyelids Overall: conjunctiva clear 12/31/2015 None Full Exam - General 1994 Eyes conjunctiva /eyelids Overall: cornea clear 12/31/2015 None Full Exam - General 1994 Eyes conjunctiva /eyelids Overall: eyelids normal 12/31/2015 None Full Exam - General 1994 Eyes pupils and irises Overall: pupils equal, round, reactive to light and accomodation 12/31/2015 None Full Exam - General 1994 Ears/Nose/Throat otoscopic exam Overall: external auditory canals clear 12/31/2015 None Full Exam - General 1994 Ears/Nose/Throat otoscopic exam Overall: tympanic membranes clear 12/31/2015 None Full Exam - General 1994 Ears/Nose/Throat lips/teeth/gingiva Overall: benign lips 12/31/2015 None Full Exam - General 1994 Ears/Nose/Throat oral cavity/pharynx/larynx Overall: oral mucosa clear 12/31/2015 None Full Exam - General 1994 Ears/Nose/Throat oral cavity/pharynx/larynx Overall: oropharyngeal mucosa clear 12/31/2015 None Full Exam - General 1994 Ears/Nose/Throat oral cavity/pharynx/larynx Overall: no masses 12/31/2015 None Full Exam - General 1994 Respiratory auscultation Overall: breath sounds clear bilaterally 12/31/2015 None Full Exam - General 1994 Respiratory respiratory effort/rhythm Overall: no retractions 12/31/2015 None Full Exam - General 1994 Respiratory respiratory effort/rhythm Overall: normal rate 12/31/2015 None Full Exam - General 1994 Cardiovascular extremities Overall: no clubbing 12/31/2015 None Full Exam - General 1994 Cardiovascular auscultation of heart Overall: regular rate 12/31/2015 None Full Exam - General 1994 Cardiovascular auscultation of heart Overall: normal heart sounds 12/31/2015 None Full Exam - General 1994 Abdomen abdominal exam Overall: no tenderness 12/31/2015 None Full Exam - General 1994 Abdomen abdominal exam Overall: normal bowel sounds 12/31/2015 None Full Exam - General 1994 Lymphatic neck nodes Overall: anterior cervical chain benign 12/31/2015 None Full Exam - General 1994 Lymphatic neck nodes Overall: posterior cervical chain benign 12/31/2015 None Full Exam - General 1994 Musculoskeletal spine, ribs and pelvis Overall: good posture 12/31/2015 None Full Exam - General 1994 Musculoskeletal gait and station Overall: normal gait 12/31/2015 None Full Exam - General 1994 Musculoskeletal gait and station Overall: normal station 12/31/2015 None Full Exam - General 1994 Integument inspection of skin Overall: few scattered moles, no gross abnormalities 12/31/2015 None Full Exam - General 1994 Integument inspection of skin Consistency: dry 12/31/2015 right index finger Full Exam - General 1994 Neurologic cranial nerves Overall: crainial nerves 2 - 12 grossly intact 12/31/2015 None Full Exam - General 1994 Neurologic gait Overall: no ataxia, no unsteadiness 12/31/2015 None Full Exam - General 1994 Psychiatric orientation/consciousness Overall: oriented to person, place and time 12/31/2015 None Full Exam - General 1994 Psychiatric mood and affect Overall: normal mood and affect 12/31/2015 None Full Exam - General 1994 Psychiatric appearance Overall: well-groomed, good eye contact 12/31/2015 None Full Exam - General 1994 Psychiatric speech Overall: normal quality, no aphasia 12/31/2015 None Full Exam - General 1994 Psychiatric speech Overall: normal quality, quantity, rate 12/31/2015 None Full Exam - General 1994 Psychiatric thought Overall: normal form and content 12/31/2015 None Full Exam - General Constitutional general appearance Overall: well nourished 11/04/2015 None Full Exam - General Constitutional general appearance Overall: well developed 11/04/2015 None Full Exam - General Constitutional general appearance Overall: in no acute distress 11/04/2015 None Full Exam - General Eyes conjunctiva/ eyelids Overall: conjunctiva clear 11/04/2015 None Full Exam - General Respiratory respiratory effort/rhythm Overall: no retractions 11/04/2015 None Full Exam - General Respiratory respiratory effort/rhythm Overall: normal rate 11/04/2015 None Full Exam - General Musculoskeletal digits and nails Overall: no clubbing 11/04/2015 None Full Exam - General Musculoskeletal digits and nails Overall: digits benign 11/04/2015 None Full Exam - General Integument inspection of skin Overall: no rash, lesions 11/04/2015 None Full Exam - General Neurologic cranial nerves Overall: cranial nerves 2-12 grossly intact 11/04/2015 None Full Exam - General Psychiatric orientation/consciousness Overall: oriented to person, place and time 11/04/2015 None Full Exam - General Ears/Nose/Throat lips /teeth/gingiva Overall: benign lips 11/04/2015 None Full Exam - General Ears/Nose/Throat lips /teeth/gingiva Overall: normal dentition 11/04/2015 None Full Exam - General Integument inspection of skin Dermatitis: erythema 11/04/2015 None Full Exam - General Integument inspection of skin Location: diffuse 11/04/2015 None Full Exam - General Integument inspection of skin Rash/Lesions: macule 11/04/2015 None Full Exam - Genitourinary/Female Constitutional general appearance Overall: well nourished 09/08/2015 None Full Exam - Genitourinary/Female Constitutional general appearance Overall: well developed 09/08/2015 None Full Exam - Genitourinary/Female Constitutional general appearance Overall: in no acute distress 09/08/2015 None Full Exam - Genitourinary/Female Eyes conjunctiva/eyelids Overall: conjunctiva clear 09/08/2015 None Full Exam - Genitourinary/Female Eyes pupils and irises Overall: pupils equal, round, reactive to light and accomodation 09/08/2015 None Full Exam - Genitourinary/Female Ears/Nose/Throat otoscopic exam Overall: external auditory canals clear 09/08/2015 None Full Exam - Genitourinary/Female Ears/Nose/Throat otoscopic exam Overall: tympanic membranes clear 09/08/2015 None Full Exam - Genitourinary/Female Ears/Nose/Throat oral cavity/pharynx/larynx Overall: oral mucosa clear 09/08/2015 None Full Exam - Genitourinary/Female Respiratory auscultation Overall: breath sounds clear bilaterally 09/08/2015 None Full Exam - Genitourinary/Female Respiratory respiratory effort/rhythm Overall: no retractions 09/08/2015 None Full Exam - Genitourinary/Female Respiratory respiratory effort/rhythm Overall: normal rate 09/08/2015 None Full Exam - Genitourinary/Female Cardiovascular auscultation of heart Overall: regular rate 09/08/2015 None Full Exam - Genitourinary/Female Cardiovascular auscultation of heart Overall: normal heart sounds 09/08/2015 None Full Exam - Genitourinary/Female Cardiovascular examination of vasculature Overall: no clubbing, cyanosis, edema 09/08/2015 None Full Exam - Genitourinary/Female Abdomen abdominal exam Overall: non tender, non distended 09/08/2015 None Full Exam - Genitourinary/Female Abdomen abdominal exam Overall: normal bowel sounds 09/08/2015 None Full Exam - Genitourinary/Female Abdomen abdominal exam Overall: no mass lesions 09/08/2015 None Full Exam - Genitourinary/Female Genitourinary breast inspection & palpation Overall: breasts symmetric and without lesions 09/08/2015 None Full Exam - Genitourinary/Female Genitourinary breast inspection & palpation Overall: breasts non-tender, no mass lesions 09/08/2015 None Full Exam - Genitourinary/Female Genitourinary breast inspection & palpation Overall: no nipple discharge 09/08/2015 None Full Exam - Genitourinary/Female Genitourinary external genitalia Overall: no discharge 09/08/2015 None Full Exam - Genitourinary/Female Genitourinary external genitalia Overall: no lesions 09/08/2015 None Full Exam - Genitourinary/Female Genitourinary bladder Palpation: non-tender 09/08/2015 None Full Exam - Genitourinary/Female Genitourinary bladder Palpation: no masses 09/08/2015 None Full Exam - Genitourinary/Female Genitourinary vagina Introitus: normal appearance 09/08/2015 None Full Exam - Genitourinary/Female Genitourinary vagina Vagina: no lesions present 09/08/2015 None Full Exam - Genitourinary/Female Genitourinary cervix Overall: cervix surgically absent 09/08/2015 None Full Exam - Genitourinary/Female Genitourinary uterus Overall: uterus surgically absent 09/08/2015 None Full Exam - Genitourinary/Female Genitourinary adnexa/parametria Overall: ovaries surgically absent 09/08/2015 None Full Exam - Genitourinary/Female Genitourinary anus and perineum Overall: good sphincter tone, no masses, no lesions 09/08/2015 None Full Exam - Genitourinary/Female Lymphatic inspection and palpation of nodes Overall: anterior cervical chain benign 09/08/2015 None Full Exam - Genitourinary/Female Lymphatic inspection and palpation of nodes Overall: posterior cervical chain benign 09/08/2015 None Full Exam - Genitourinary/Female Musculoskeletal head and neck Overall: head atraumatic 09/08/2015 None Full Exam - Genitourinary/Female Musculoskeletal gait and station Overall: normal gait 09/08/2015 None Full Exam - Genitourinary/Female Musculoskeletal gait and station Overall: normal station 09/08/2015 None Full Exam - Genitourinary/Female Integument inspection and palpation of skin Overall: no rash, lesions 09/08/2015 None Full Exam - Genitourinary/Female Neurologic mood and affect Overall: normal mood 09/08/2015 None Full Exam - Genitourinary/Female Neurologic mood and affect Overall: normal affect 09/08/2015 None Full Exam - Genitourinary/Female Neurologic orientation Overall: oriented to person, place and time 09/08/2015 None Full Exam - Genitourinary/Female Psychiatric orientation/consciousness Overall: oriented to person, place and time 09/08/2015 None Full Exam - Orthopedics Constitutional general appearance Overall: well nourished 02/19/2015 None Full Exam - Orthopedics Constitutional general appearance Overall: well developed 02/19/2015 None Full Exam - Orthopedics Constitutional general appearance Overall: in no acute distress 02/19/2015 None Full Exam - Orthopedics Constitutional general appearance Overall: no deformities 02/19/2015 None Full Exam - Orthopedics Psychiatric orientation/consciousness Overall: oriented to person, place and time 02/19/2015 None Full Exam - Orthopedics MS: right lower extremity insp & palp - RLE Forefoot: swelling 02/19/2015 None Full Exam - Orthopedics MS: right lower extremity insp & palp - RLE Forefoot: pain on palpation 02/19/2015 None Full Exam - Orthopedics MS: right lower extremity insp & palp - RLE Midfoot: swelling 02/19/2015 None Full Exam - Orthopedics MS: right lower extremity insp & palp - RLE Midfoot: pain on palpation 02/19/2015 None Full Exam - Orthopedics MS: right lower extremity insp & palp - RLE Dorsalis pedis pulse: normal 02/19/2015 None Full Exam - Orthopedics MS: right lower extremity insp & palp - RLE Rearfoot: swelling 02/19/2015 None Full Exam - Orthopedics MS: right lower extremity insp & palp - RLE Rearfoot: pain on palpation 02/19/2015 None Full Exam - Orthopedics MS: right lower extremity insp & palp - RLE Ankle: normal appearance 02/19/2015 None Full Exam - Orthopedics MS: right lower extremity range of motion - RLE Foot: pain with flexion of toes 02/19/2015 None Full Exam - General 1994 Constitutional general appearance Development: well developed 12/18/2014 None Full Exam - General 1994 Constitutional general appearance Development: appears stated age 0312/18/2014 None Full Exam - General 1994 Constitutional general appearance Nourishment: obese 12/18/2014 None Full Exam - General 1994 Psychiatric orientation/consciousness Overall: oriented to person, place and time 12/18/2014 None Full Exam - General 1994 Psychiatric mood and affect Mood: happy 12/18/2014 None Full Exam - General 1994 Psychiatric mood and affect Overall: normal mood and affect 12/18/2014 None Full Exam - General 1994 Musculoskeletal lower extremity Palpation - foot: tender 12/18/2014 at right heel - near caudal most aspect of heel near start of arch of foot - area marked, cleansed with iodine x 3, then a 1mL of kenalog and 1/2 mL of lidocaine injected into the tender region of th efoot, minimal bleeding, area cleansed and dressed with bandaid. Full Exam - General Ears/Nose/Throat otoscopic exam Left external auditory canal: a normal exam 12/10/2014 None Full Exam - General Ears/Nose/Throat otoscopic exam Right external auditory canal: a normal exam 12/10/2014 None Full Exam - General Ears/Nose/Throat otoscopic exam Left tympanic membrane: a normal exam 12/10/2014 None Full Exam - General Ears/Nose/Throat otoscopic exam Right tympanic membrane: a normal exam 12/10/2014 None Full Exam - General Respiratory auscultation Overall: breath sounds clear bilaterally 12/10/2014 None Full Exam - General Cardiovascular auscultation of heart Overall: regular rate 12/10/2014 None Full Exam - General Cardiovascular auscultation of heart Overall: normal heart sounds 12/10/2014 None Full Exam - General Cardiovascular auscultation of heart Overall: no murmurs 12/10/2014 None Full Exam - General Constitutional general appearance Overall: well nourished 12/10/2014 None Full Exam - General Constitutional general appearance Overall: well developed 12/10/2014 None Full Exam - General Constitutional general appearance Overall: in no acute distress 12/10/2014 None Full Exam - General Eyes conjunctiva/ eyelids Overall: conjunctiva clear 12/10/2014 None Full Exam - General Eyes pupils and irises Overall: pupils equal, round, reactive to light and accomodation 12/10/2014 None Full Exam - General Ears/Nose/Throat otoscopic exam Overall: external auditory canals clear 12/10/2014 None Full Exam - General Ears/Nose/Throat otoscopic exam Overall: tympanic membranes clear 12/10/2014 None Full Exam - General Ears/Nose/Throat oral cavity/pharynx/larynx Oropharynx: a normal exam 12/10/2014 None Full Exam - General Respiratory respiratory effort/rhythm Overall: no retractions 12/10/2014 None Full Exam - General Respiratory respiratory effort/rhythm Overall: normal rate 12/10/2014 None Full Exam - General Musculoskeletal digits and nails Overall: no clubbing 12/10/2014 None Full Exam - General Musculoskeletal digits and nails Overall: digits benign 12/10/2014 None Full Exam - General Neurologic cranial nerves Overall: cranial nerves 2-12 grossly intact 12/10/2014 None Full Exam - General Psychiatric orientation/consciousness Overall: oriented to person, place and time 12/10/2014 None Full Exam - General Musculoskeletal right lower extremity Inspection - right foot: claw toes 12/10/2014 None Full Exam - General Musculoskeletal right lower extremity Stability - right foot: a normal exam 12/10/2014 None Full Exam - General Musculoskeletal right lower extremity Palpation - right foot: tender 12/10/2014 over heel medially near base of arch Full Exam - General Constitutional general appearance Overall: well nourished 09/05/2014 None Full Exam - General Constitutional general appearance Overall: well developed 09/05/2014 None Full Exam - General Constitutional general appearance Overall: in no acute distress 09/05/2014 None Full Exam - General Eyes conjunctiva/ eyelids Overall: conjunctiva clear 09/05/2014 None Full Exam - General Eyes pupils and irises Overall: pupils equal, round, reactive to light and accomodation 09/05/2014 None Full Exam - General Ears/Nose/Throat otoscopic exam Overall: external auditory canals clear 09/05/2014 None Full Exam - General Ears/Nose/Throat otoscopic exam Overall: tympanic membranes clear 09/05/2014 None Full Exam - General Ears/Nose/Throat oral cavity/pharynx/larynx Oropharynx: a normal exam 09/05/2014 None Full Exam - General Respiratory auscultation Overall: breath sounds clear bilaterally 09/05/2014 None Full Exam - General Respiratory respiratory effort/rhythm Overall: no retractions 09/05/2014 None Full Exam - General Respiratory respiratory effort/rhythm Overall: normal rate 09/05/2014 None Full Exam - General Cardiovascular auscultation of heart Overall: regular rate 09/05/2014 None Full Exam - General Cardiovascular auscultation of heart Overall: normal heart sounds 09/05/2014 None Full Exam - General Cardiovascular auscultation of heart Overall: no murmurs 09/05/2014 None Full Exam - General Abdomen abdominal exam Overall: no tenderness 09/05/2014 None Full Exam - General Abdomen abdominal exam Overall: normal bowel sounds 09/05/2014 None Full Exam - General Lymphatic neck nodes Overall: anterior cervical chain benign 09/05/2014 None Full Exam - General Lymphatic neck nodes Overall: posterior cervical chain benign 09/05/2014 None Full Exam - General Lymphatic neck nodes Overall: shotty lymphadenopathy 09/05/2014 None Full Exam - General Lymphatic neck nodes Left anterior cervical chain: a normal exam 09/05/2014 None Full Exam - General Lymphatic neck nodes Left anterior cervical chain: soft 09/05/2014 None Full Exam - General Lymphatic neck nodes Left anterior cervical chain: non-tender 09/05/2014 None Full Exam - General Lymphatic neck nodes Right anterior cervical chain: a normal exam 09/05/2014 None Full Exam - General Lymphatic neck nodes Right anterior cervical chain: soft 09/05/2014 None Full Exam - General Lymphatic neck nodes Right anterior cervical chain: non- tender 09/05/2014 None Full Exam - General Lymphatic neck nodes Left posterior cervical chain: a normal exam 09/05/2014 None Full Exam - General Lymphatic neck nodes Left posterior cervical chain: soft 09/05/2014 None Full Exam - General Lymphatic neck nodes Left posterior cervical chain: non- tender 09/05/2014 None Full Exam - General Lymphatic neck nodes Right posterior cervical chain: a normal exam 09/05/2014 None Full Exam - General Lymphatic neck nodes Right posterior cervical chain: soft 09/05/2014 None Full Exam - General Lymphatic neck nodes Right posterior cervical chain: non- tender 09/05/2014 None Full Exam - General Musculoskeletal digits and nails Overall: no clubbing 09/05/2014 None Full Exam - General Musculoskeletal digits and nails Overall: digits benign 09/05/2014 None Full Exam - General Integument inspection of skin Overall: no rash, lesions 09/05/2014 None Full Exam - General Neurologic cranial nerves Overall: cranial nerves 2-12 grossly intact 09/05/2014 None Full Exam - General Psychiatric orientation/consciousness Overall: oriented to person, place and time 09/05/2014 None Full Exam - Genitourinary/Female Constitutional general appearance Overall: well nourished 08/01/2014 None Full Exam - Genitourinary/Female Constitutional general appearance Overall: well developed 08/01/2014 None Full Exam - Genitourinary/Female Constitutional general appearance Overall: in no acute distress 08/01/2014 None Full Exam - Genitourinary/Female Eyes conjunctiva/eyelids Overall: conjunctiva clear 08/01/2014 None Full Exam - Genitourinary/Female Eyes pupils and irises Overall: pupils equal, round, reactive to light and accomodation 08/01/2014 None Full Exam - Genitourinary/Female Ears/Nose/Throat otoscopic exam Overall: external auditory canals clear 08/01/2014 None Full Exam - Genitourinary/Female Ears/Nose/Throat otoscopic exam Overall: tympanic membranes clear 08/01/2014 None Full Exam - Genitourinary/Female Ears/Nose/Throat oral cavity/pharynx/larynx Overall: oral mucosa clear 08/01/2014 None Full Exam - Genitourinary/Female Respiratory auscultation Overall: breath sounds clear bilaterally 08/01/2014 None Full Exam - Genitourinary/Female Respiratory respiratory effort/rhythm Overall: no retractions 08/01/2014 None Full Exam - Genitourinary/Female Respiratory respiratory effort/rhythm Overall: normal rate 08/01/2014 None Full Exam - Genitourinary/Female Cardiovascular auscultation of heart Overall: regular rate 08/01/2014 None Full Exam - Genitourinary/Female Cardiovascular auscultation of heart Overall: normal heart sounds 08/01/2014 None Full Exam - Genitourinary/Female Cardiovascular examination of vasculature Overall: no clubbing, cyanosis, edema 08/01/2014 None Full Exam - Genitourinary/Female Abdomen abdominal exam Overall: non tender, non distended 08/01/2014 None Full Exam - Genitourinary/Female Abdomen abdominal exam Overall: normal bowel sounds 08/01/2014 None Full Exam - Genitourinary/Female Abdomen abdominal exam Overall: no mass lesions 08/01/2014 None Full Exam - Genitourinary/Female Genitourinary breast inspection & palpation Overall: breasts symmetric and without lesions 08/01/2014 None Full Exam - Genitourinary/Female Genitourinary breast inspection & palpation Overall: breasts non-tender, no mass lesions 08/01/2014 None Full Exam - Genitourinary/Female Genitourinary breast inspection & palpation Overall: no nipple discharge 08/01/2014 None Full Exam - Genitourinary/Female Genitourinary external genitalia Overall: no discharge 08/01/2014 None Full Exam - Genitourinary/Female Genitourinary external genitalia Overall: no lesions 08/01/2014 None Full Exam - Genitourinary/Female Genitourinary bladder Palpation: non-tender 08/01/2014 None Full Exam - Genitourinary/Female Genitourinary bladder Palpation: no masses 08/01/2014 None Full Exam - Genitourinary/Female Genitourinary vagina Introitus: normal appearance 08/01/2014 None Full Exam - Genitourinary/Female Genitourinary vagina Vagina: no lesions present 08/01/2014 None Full Exam - Genitourinary/Female Lymphatic inspection and palpation of nodes Overall: anterior cervical chain benign 08/01/2014 None Full Exam - Genitourinary/Female Lymphatic inspection and palpation of nodes Overall: posterior cervical chain benign 08/01/2014 None Full Exam - Genitourinary/Female Musculoskeletal head and neck Overall: head atraumatic 08/01/2014 None Full Exam - Genitourinary/Female Musculoskeletal gait and station Overall: normal gait 08/01/2014 None Full Exam - Genitourinary/Female Musculoskeletal gait and station Overall: normal station 08/01/2014 None Full Exam - Genitourinary/Female Integument inspection and palpation of skin Overall: no rash, lesions 08/01/2014 None Full Exam - Genitourinary/Female Neurologic mood and affect Overall: normal mood 08/01/2014 None Full Exam - Genitourinary/Female Neurologic mood and affect Overall: normal affect 08/01/2014 None Full Exam - Genitourinary/Female Neurologic orientation Overall: oriented to person, place and time 08/01/2014 None Full Exam - Genitourinary/Female Psychiatric orientation/consciousness Overall: oriented to person, place and time 08/01/2014 None Full Exam - Genitourinary/Female Genitourinary cervix Overall: cervix surgically absent 08/01/2014 None Full Exam - Genitourinary/Female Genitourinary uterus Overall: uterus surgically absent 08/01/2014 None Full Exam - Genitourinary/Female Genitourinary adnexa/parametria Overall: ovaries surgically absent 08/01/2014 None Full Exam - Genitourinary/Female Genitourinary anus and perineum Overall: good sphincter tone, no masses, no lesions 08/01/2014 None Full Exam - General Constitutional general appearance Overall: well nourished 05/07/2014 None Full Exam - General Constitutional general appearance Overall: well developed 05/07/2014 None Full Exam - General Constitutional general appearance Overall: in no acute distress 05/07/2014 None Full Exam - General Eyes conjunctiva/ eyelids Overall: conjunctiva clear 05/07/2014 None Full Exam - General Eyes pupils and irises Overall: pupils equal, round, reactive to light and accomodation 05/07/2014 None Full Exam - General Ears/Nose/Throat otoscopic exam Overall: external auditory canals clear 05/07/2014 None Full Exam - General Ears/Nose/Throat otoscopic exam Overall: tympanic membranes clear 05/07/2014 None Full Exam - General Ears/Nose/Throat oral cavity/pharynx/larynx Oropharynx: a normal exam 05/07/2014 None Full Exam - General Respiratory auscultation Overall: breath sounds clear bilaterally 05/07/2014 None Full Exam - General Respiratory respiratory effort/rhythm Overall: no retractions 05/07/2014 None Full Exam - General Respiratory respiratory effort/rhythm Overall: normal rate 05/07/2014 None Full Exam - General Cardiovascular auscultation of heart Overall: regular rate 05/07/2014 None Full Exam - General Cardiovascular auscultation of heart Overall: normal heart sounds 05/07/2014 None Full Exam - General Cardiovascular auscultation of heart Overall: no murmurs 05/07/2014 None Full Exam - General Abdomen abdominal exam Overall: no tenderness 05/07/2014 None Full Exam - General Abdomen abdominal exam Overall: normal bowel sounds 05/07/2014 None Full Exam - General Neurologic cranial nerves Overall: cranial nerves 2-12 grossly intact 05/07/2014 None Full Exam - General Psychiatric orientation/consciousness Overall: oriented to person, place and time 05/07/2014 None Full Exam - General Lymphatic neck nodes Right anterior cervical chain: soft 05/07/2014 None Full Exam - General Lymphatic neck nodes Right anterior cervical chain: a normal exam 05/07/2014 None Full Exam - General Lymphatic neck nodes Right anterior cervical chain: non- tender 05/07/2014 None Full Exam - General Lymphatic neck nodes Left posterior cervical chain: a normal exam 05/07/2014 None Full Exam - General Lymphatic neck nodes Left posterior cervical chain: non- tender 05/07/2014 None Full Exam - General Lymphatic neck nodes Left posterior cervical chain: soft 05/07/2014 None Full Exam - General Lymphatic neck nodes Right posterior cervical chain: a normal exam 05/07/2014 None Full Exam - General Lymphatic neck nodes Right posterior cervical chain: non- tender 05/07/2014 None Full Exam - General Lymphatic neck nodes Right posterior cervical chain: soft 05/07/2014 None Full Exam - General Lymphatic neck nodes Left anterior cervical chain: non-tender 05/07/2014 None Full Exam - General Lymphatic neck nodes Left anterior cervical chain: a normal exam 05/07/2014 None Full Exam - General Lymphatic neck nodes Left anterior cervical chain: soft 05/07/2014 None Full Exam - General Lymphatic neck nodes Overall: posterior cervical chain benign 05/07/2014 None Full Exam - General Lymphatic neck nodes Overall: shotty lymphadenopathy 05/07/2014 None Full Exam - General Lymphatic neck nodes Overall: anterior cervical chain benign 05/07/2014 None Full Exam - General Musculoskeletal digits and nails Overall: no clubbing 05/07/2014 None Full Exam - General Musculoskeletal digits and nails Overall: digits benign 05/07/2014 None Full Exam - General Integument inspection of skin Overall: no rash, lesions 05/07/2014 None Procedures Procedure Codes Date THER/PROPH/DIAG INJ SC/IM CPT-4: 31962 11/20/2017 TRIAMCINOLONE ACET INJ NOS CPT-4: J3301 11/20/2017 IIV4 VACC NO PRSV 3 YRS+ IM CPT-4: 05882 07/24/2017 FLU VAC NO PRSV 4 JAIME 3 YRS+ CPT-4: 43795 07/24/2017 ADMIN INFLUENZA VIRUS VAC CPT-4: G0008 07/24/2017 IIV4 VACC NO PRSV 3 YRS+ IM CPT-4: 80838 07/24/2017 DESTRUCT PREMALG LES 2-14 CPT-4: 00226 08/03/2016 IMMUNIZATION ADMIN CPT -4: 92502 07/27/2016 FLU VACC 4 JAIME 3 YRS PLUS IM Formatting Model/CDA Sections, Assigned to/Aimee Weinberg CT: [id number] CPT-4: 69631Wdektld 07/27/2016 INITIAL PREVENTIVE EXAM CPT-4: G0402 12/31/2015 DRAIN/INJECT JOINT/BURSA CPT-4: 99751 12/18/2014 TRIAMCINOLONE ACET INJ NOS CPT-4: J3301 12/18/2014 ROUTINE VENIPUNCTURE CPT-4: 99684 05/15/2014 Vital Signs Date Vital 06/07/2018 Blood Pressure 1: 132/74 Code : 8480-6 BMI: 40.0 Code : 59008-5 Heart Rate 1 : 98 bpm Height: 5'4" SpO2: 98% Weight: 233 lbs 12/07/2017 Blood Pressure 1: 126/84 Code : 8480-6 BMI: 38.6 Code : 90138-8 Heart Rate 1 : 77 bpm Height: 5'4" SpO2: 96% Weight: 225 lbs 11/20/2017 Blood Pressure 1: 142/80 Code : 8480-6 BMI: 37.6 Code : 81848-4 Heart Rate 1 : 64 bpm Height: 5'4" SpO2: 98% Temperature: 37.1 (C) / 98.7 (F) Weight: 219 lbs 07/24/2017 Blood Pressure 1: 118/74 Code : 8480-6 BMI: 37.4 Code : 81208-1 Heart Rate 1 : 80 bpm Height: 5'4" SpO2: 97% Weight: 218 lbs 06/08/2017 Blood Pressure 1: 120/72 Code : 8480-6 BMI: 37.0 Code : 04134-9 Heart Rate 1 : 77 bpm Height: 5'4" SpO2: 98% Weight: 215 lbs 8 oz 12/07/2016 Blood Pressure 1: 132/76 Code : 8480-6 BMI: 36.9 Code : 46773-3 Heart Rate 1 : 78 bpm Height: 5'4" SpO2: 97% Weight: 215 lbs 11/30/2016 Blood Pressure 1: 136/72 Code : 8480-6 BMI: 37.1 Code : 41320-6 Heart Rate 1 : 78 bpm Height: 5'4" SpO2: 97% Temperature: 36.7 (C) / 98.1 (F) Weight: 216 lbs 11/03/2016 Blood Pressure 1: 130/86 Code : 8480-6 Heart Rate 1: 75 bpm Height: SpO2: 98% Weight: 08/03/2016 Blood Pressure 1: 120/76 Code : 8480-6 BMI: 37.4 Code : 82076-9 Heart Rate 1 : 72 bpm Height: 5'4" SpO2: 98% Weight: 218 lbs 04/05/2016 Blood Pressure 1: 110/70 Code : 8480-6 BMI: 38.9 Code : 65281-5 Heart Rate 1 : 87 bpm Height: 5'4" SpO2: 97% Weight: 226 lbs 8 oz 12/31/2015 Blood Pressure 1: 140/78 Code : 8480-6 BMI: 44.1 Code : 40300-2 Heart Rate 1 : 74 bpm Height: 5'4" SpO2: 97% Waist Measure (cm): 117 cm Weight: 257 lbs 11/04/2015 Blood Pressure 1: 148/62 Code : 8480-6 BMI: 44.1 Code : 33527-3 Heart Rate 1 : 67 bpm Height: 5'3" SpO2: 96% Weight: 249 lbs 09/08/2015 Blood Pressure 1: 140/80 Code : 8480-6 BMI: 44.3 Code : 35472-6 Heart Rate 1 : 88 bpm Height: 5'3" Weight: 250 lbs 02/19/2015 Blood Pressure 1: 132/84 Code : 8480-6 BMI: 45.5 Code : 13541-2 Heart Rate 1 : 64 bpm Height: 5'3" SpO2: 96% Weight: 257 lbs 12/18/2014 Blood Pressure 1: 136/80 Code : 8480-6 BMI: 45.3 Code : 89146-6 Heart Rate 1 : 80 bpm Height: 5'3" Weight: 256 lbs 12/10/2014 Blood Pressure 1: 140/78 Code : 8480-6 BMI: 45.3 Code : 51943-5 Heart Rate 1 : 74 bpm Height: 5'3" Weight: 256 lbs 09/05/2014 Blood Pressure 1: 158/90 Code : 8480-6 BMI: 45.0 Code : 76104-3 Heart Rate 1 : 72 bpm Height: 5'3" Weight: 254 lbs 08/01/2014 Blood Pressure 1: 138/70 Code : 8480-6 BMI: 44.6 Code : 04615-2 Heart Rate 1 : 70 bpm Height: 5'3" SpO2: 99% Weight: 252 lbs 05/07/2014 Blood Pressure 1: 136/78 Code : 8480-6 BMI: 43.4 Code : 04052-4 Heart Rate 1 : 75 bpm Height: 5'3" Respiratory Rate: 20 bpm Temperature: 36.6 ( C) / 97.8 (F) Weight: 245 lbs Functional Status No Functional Status data History of Present Illness Symptom Name Status Result Effective Date Notes weight gain/obesity Location globally 06/07/2018 None weight gain/obesity Quality constant 06/07/2018 None weight gain/obesity Onset and Resolution ongoing 06/07/2018 None weight gain/obesity Pertinent Findings depressed mood 06/07/2018 None weight gain/obesity Alleviating Factors change in dietary habits 06/07/2018 None sinus congestion Quality acute 12/07/2017 None sinus congestion Quality fullness 12/07/2017 None sinus congestion Onset of Symptom 5 days ago 12/07/2017 None sinus congestion Frequency of Episodes daily 12/07/2017 None sinus congestion Pertinent Findings Denies cough 12/07/2017 None sinus congestion Pertinent Findings Denies fever 12/07/2017 None hypertension Onset and Resolution ongoing 12/07/2017 None hypertension Onset of Symptom during adulthood 12/07/2017 None hypertension Blood Pressure Values not checking blood pressure at home 12/07/2017 None hypertension Alleviating Factors medication 12/07/2017 None hypertension Pertinent Findings Denies dizziness 12/07/2017 None hypertension Pertinent Findings Denies dyspnea 12/07/2017 None hypertension Pertinent Findings Denies edema 12/07/2017 None hyperlipidemia Onset and Resolution gradual in onset 12/07/2017 None hyperlipidemia Onset and Resolution ongoing 12/07/2017 None hyperlipidemia Onset of Symptom during adulthood 12/07/2017 None hyperlipidemia Alleviating Factors medication 12/07/2017 None hyperlipidemia Exacerbating Factors diet 12/07/2017 None diabetes mellitus Quality non-insulin dependent 12/07/2017 None diabetes mellitus Severity mild 12/07/2017 None diabetes mellitus Alleviating Factors medication 12/07/2017 None diabetes mellitus Alleviating Factors diet 12/07/2017 None diabetes mellitus Exacerbating Factors diet 12/07/2017 None diabetes mellitus Pertinent Findings Denies dizziness 12/07/2017 None diabetes mellitus Pertinent Findings Denies dyspnea 12/07/2017 None diabetes mellitus Pertinent Findings Denies nausea 12/07/2017 None sinus congestion Onset and Resolution ongoing 12/07/2017 None sinus congestion Pertinent Findings Denies decreased energy level 12/07/2017 None sinus congestion Quality acute 11/20/2017 None sinus congestion Quality fullness 11/20/2017 None sinus congestion Onset and Resolution sudden in onset 11/20/2017 None sinus congestion Onset of Symptom 5 days ago 11/20/2017 None sinus congestion Frequency of Episodes daily 11/20/2017 None sinus congestion Pertinent Findings Denies cough 11/20/2017 None sinus congestion Pertinent Findings Denies fever 11/20/2017 None nausea Quality acute 11/20/2017 None nausea Onset and Resolution sudden in onset 11/20/2017 None nausea Quality improving 11/20/2017 None nausea Onset of Symptom 5 days ago 11/20/2017 None nausea Frequency of Episodes daily 11/20/2017 None nausea Triggers no known associated factors 11/20/2017 None nausea Pertinent Findings Denies cough 11/20/2017 None nausea Pertinent Findings Denies fever 11/20/2017 None hypertension Onset and Resolution ongoing 07/24/2017 None hypertension Onset of Symptom during adulthood 07/24/2017 None hypertension Blood Pressure Values not checking blood pressure at home 07/24/2017 None hypertension Alleviating Factors medication 07/24/2017 None hypertension Pertinent Findings Denies dizziness 07/24/2017 None hypertension Pertinent Findings Denies dyspnea 07/24/2017 None hypertension Pertinent Findings Denies edema 07/24/2017 None diabetes mellitus Quality non-insulin dependent 07/24/2017 None diabetes mellitus Severity mild 07/24/2017 None diabetes mellitus Alleviating Factors medication 07/24/2017 None diabetes mellitus Alleviating Factors diet 07/24/2017 None diabetes mellitus Exacerbating Factors diet 07/24/2017 None diabetes mellitus Pertinent Findings Denies dizziness 07/24/2017 None diabetes mellitus Pertinent Findings Denies dyspnea 07/24/2017 None diabetes mellitus Pertinent Findings Denies nausea 07/24/2017 None hypertension Onset and Resolution ongoing 06/08/2017 None hypertension Onset of Symptom during adulthood 06/08/2017 None hypertension Blood Pressure Values not checking blood pressure at home 06/08/2017 None hypertension Alleviating Factors medication 06/08/2017 None hypertension Pertinent Findings Denies dizziness 06/08/2017 None hypertension Pertinent Findings Denies dyspnea 06/08/2017 None hypertension Pertinent Findings Denies edema 06/08/2017 None hyperlipidemia Onset and Resolution gradual in onset 06/08/2017 None hyperlipidemia Onset and Resolution ongoing 06/08/2017 None hyperlipidemia Onset of Symptom during adulthood 06/08/2017 None hyperlipidemia Alleviating Factors medication 06/08/2017 None hyperlipidemia Exacerbating Factors diet 06/08/2017 None diabetes mellitus Quality non-insulin dependent 06/08/2017 None diabetes mellitus Severity mild 06/08/2017 None diabetes mellitus Alleviating Factors medication 06/08/2017 None diabetes mellitus Alleviating Factors diet 06/08/2017 None diabetes mellitus Exacerbating Factors diet 06/08/2017 None diabetes mellitus Pertinent Findings Denies nausea 06/08/2017 None diabetes mellitus Test results Pt not checking blood glucose readings at home 06/08/2017 None diabetes mellitus Pertinent Findings Denies dizziness 06/08/2017 None diabetes mellitus Pertinent Findings Denies dyspnea 06/08/2017 None hypertension Onset and Resolution ongoing 12/07/2016 None hypertension Onset of Symptom during adulthood 12/07/2016 None hypertension Blood Pressure Values not checking blood pressure at home 12/07/2016 None hypertension Alleviating Factors medication 12/07/2016 None hypertension Pertinent Findings Denies dizziness 12/07/2016 None hypertension Pertinent Findings Denies dyspnea 12/07/2016 None hypertension Pertinent Findings Denies edema 12/07/2016 None hyperlipidemia Onset and Resolution gradual in onset 12/07/2016 None hyperlipidemia Onset and Resolution ongoing 12/07/2016 None hyperlipidemia Onset of Symptom during adulthood 12/07/2016 None hyperlipidemia Alleviating Factors medication 12/07/2016 None hyperlipidemia Exacerbating Factors diet 12/07/2016 None diabetes mellitus Quality non-insulin dependent 12/07/2016 None diabetes mellitus Severity mild 12/07/2016 None diabetes mellitus Alleviating Factors medication 12/07/2016 None diabetes mellitus Alleviating Factors diet 12/07/2016 None diabetes mellitus Exacerbating Factors diet 12/07/2016 None diabetes mellitus Pertinent Findings Denies nausea 12/07/2016 None diabetes mellitus Test results Pt not checking blood glucose readings at home 12/07/2016 None diabetes mellitus Glucose monitoring does not test 12/07/2016 None cough Quality acute None cough Quality intermittent 12/07/2016 None cough Onset and Resolution ongoing 12/07/2016 None cough Quality productive 12/07/2016 None cough Pertinent Findings sputum production 12/07/2016 (greenish) cough Pertinent Findings Denies nausea 12/07/2016 None sinus congestion Location on both sides 11/30/2016 None sinus congestion Quality fullness 11/30/2016 None sinus congestion Quality pressure 11/30/2016 None sinus congestion Onset and Resolution sudden in onset 11/30/2016 None sinus congestion Onset of Symptom 1 days ago 11/30/2016 None sinus congestion Pertinent Findings cough 11/30/2016 None sinus congestion Pertinent Findings hoarseness 11/30/2016 None sore throat Location on both sides 11/30/2016 None sore throat Quality constant 11/30/2016 None sore throat Quality scratchy 11/30/2016 None sore throat Onset and Resolution sudden in onset 11/30/2016 None sore throat Onset of Symptom 1 days ago 11/30/2016 None sore throat Frequency of Episodes daily 11/30/2016 None sore throat Pertinent Findings cough 11/30/2016 None sore throat Pertinent Findings hoarseness 11/30/2016 None cough Location in the throat 11/03/2016 None cough Quality acute None cough Onset and Resolution sudden in onset 11/03/2016 None cough Pertinent Findings chills 11/03/2016 None cough Pertinent Findings Denies dyspnea 11/03/2016 None sinus congestion Location maxillary sinuses 11/03/2016 None sinus congestion Quality acute 11/03/2016 None sinus congestion Onset and Resolution sudden in onset 11/03/2016 None sinus congestion Pertinent Findings Denies fever 11/03/2016 None sinus congestion Pertinent Findings cough 11/03/2016 None hypertension Onset and Resolution ongoing 08/03/2016 None hypertension Onset of Symptom during adulthood 08/03/2016 None hypertension Blood Pressure Values not checking blood pressure at home 08/03/2016 None hypertension Alleviating Factors medication 08/03/2016 None hypertension Pertinent Findings Denies dizziness 08/03/2016 None hypertension Pertinent Findings Denies dyspnea 08/03/2016 None hyperlipidemia Onset and Resolution gradual in onset 08/03/2016 None hyperlipidemia Onset and Resolution ongoing 08/03/2016 None hyperlipidemia Onset of Symptom during adulthood 08/03/2016 None hyperlipidemia Alleviating Factors medication 08/03/2016 None hyperlipidemia Exacerbating Factors diet 08/03/2016 None diabetes mellitus Quality non-insulin dependent 08/03/2016 None diabetes mellitus Severity mild 08/03/2016 None diabetes mellitus Alleviating Factors medication 08/03/2016 None diabetes mellitus Alleviating Factors diet 08/03/2016 None diabetes mellitus Exacerbating Factors diet 08/03/2016 None diabetes mellitus Pertinent Findings Denies nausea 08/03/2016 None diabetes mellitus Pertinent Findings Denies numbness 08/03/2016 None diabetes mellitus Pertinent Findings Denies tingling 08/03/2016 None hypertension Pertinent Findings Denies edema 08/03/2016 None diabetes mellitus Test results Pt not checking blood glucose readings at home 08/03/2016 None diabetes mellitus Glucose monitoring does not test 08/03/2016 None cough Quality acute None cough Quality dry None cough Onset and Resolution sudden in onset 08/03/2016 None cough Onset of Symptom 1 days ago 08/03/2016 None cough Pertinent Findings Denies chills 08/03/2016 None cough Pertinent Findings Denies fever 08/03/2016 None hypertension Onset and Resolution ongoing 04/05/2016 None hypertension Onset of Symptom during adulthood 04/05/2016 None hypertension Blood Pressure Values not checking blood pressure at home 04/05/2016 None hypertension Alleviating Factors medication 04/05/2016 None hypertension Pertinent Findings Denies dizziness 04/05/2016 None hypertension Pertinent Findings Denies dyspnea 04/05/2016 None hyperlipidemia Onset and Resolution gradual in onset 04/05/2016 None hyperlipidemia Onset and Resolution ongoing 04/05/2016 None hyperlipidemia Onset of Symptom during adulthood 04/05/2016 None hyperlipidemia Alleviating Factors medication 04/05/2016 None hyperlipidemia Exacerbating Factors diet 04/05/2016 None diabetes mellitus Quality non-insulin dependent 04/05/2016 None diabetes mellitus Severity mild 04/05/2016 None diabetes mellitus Test results Pt not checking blood glucose readings at home 04/05/2016 None diabetes mellitus Glucose monitoring does not test 04/05/2016 None diabetes mellitus Pertinent Findings Denies nausea 04/05/2016 None diabetes mellitus Pertinent Findings Denies numbness 04/05/2016 None diabetes mellitus Pertinent Findings Denies tingling 04/05/2016 None diabetes mellitus Alleviating Factors medication 04/05/2016 None diabetes mellitus Alleviating Factors diet 04/05/2016 None diabetes mellitus Exacerbating Factors diet 04/05/2016 None Annual Medicare Wellness Exam Alcohol Use does not drink any alcohol 12/31/2015 None Annual Medicare Wellness Exam Aspirin Use yes 12/31/2015 baby aspirin Annual Medicare Wellness Exam Blood Glucose (self reported) borderline high (100-125) 12/31/2015 None Annual Medicare Wellness Exam Blood Pressure (self reported ) borderline (120/80 - 139/89) 12/31/2015 None Annual Medicare Wellness Exam Cholesterol (self reported) desireable (below 200) 12/31/2015 None Annual Medicare Wellness Exam Depression (last 6 months) almost never 12/31/2015 None Annual Medicare Wellness Exam Depression or Hopelessness some of the time 12/31/2015 None Annual Medicare Wellness Exam Describe Your Health good 12/31/2015 None Annual Medicare Wellness Exam Exercise Habits does not exercise 12/31/2015 None Annual Medicare Wellness Exam Handling Stress usually gladis effectively 12/31/2015 None Annual Medicare Wellness Exam Hemaglobin A-1C (self reported ) desireable (6 or lower) 12/31/2015 None Annual Medicare Wellness Exam Hours of Sleep 6 12/31/2015 None Annual Medicare Wellness Exam Interaction with Friends yes 12/31/2015 None Annual Medicare Wellness Exam Interests & Pleasure daily 12/31/2015 None Annual Medicare Wellness Exam Life Satisfaction very satisfied 12/31/2015 None Annual Medicare Wellness Exam Motor Vehicle Safety always fastens seat belt: y 12/31/2015 None Annual Medicare Wellness Exam Motor Vehicle Safety drives after drinking: n 12/31/2015 None Annual Medicare Wellness Exam Motor Vehicle Safety rides with someone who has been drinking: n 2015 None Annual Medicare Wellness Exam Nutrition servings of fried food / high fat foods per day: 1 2015 None Annual Medicare Wellness Exam Nutrition servings of high fiber / whole grain per day: 3 12/31/2015 None Annual Medicare Wellness Exam Nutrition servings of vegetables / fruit per day: 2 12/31/2015 None Annual Medicare Wellness Exam Social & Emotional Support usually 12/31/2015 None Annual Medicare Wellness Exam Stress daily 12/31/2015 None Annual Medicare Wellness Exam Sun Exposure protects skin when outdoors: n 12/31/2015 None Annual Medicare Wellness Exam Smoking and Tobacco Use non smoker 12/31/2015 None rash Color red 2015 None rash Location-Major in a generalized area 11/04/2015 None rash Onset and Resolution sudden in onset 11/04/2015 None rash Onset of Symptom 2 days ago 11/04/2015 None rash Triggers no known triggers 11/04/2015 None rash Pertinent Findings itching 11/04/2015 None well woman exam (40-65 years) Menstrual History last menstrual period __-__-__ 09/08/2015 hysterectomy approximately well woman exam (40-65 years) Lifestyle regular seatbelt use 09/08/2015 None well woman exam (40-65 years) Lifestyle satisfactory work experience 09/08/2015 None well woman exam (40-65 years) Control none 09/08/2015 None well woman exam (40-65 years) Nutrition and Exercise overweight 09/08/2015 None well woman exam (40-65 years) Nutrition and Exercise no exercise 09/08/2015 None well woman exam (40-65 years) Cardiovascular Risk Factors family history of cardiovascular disease Mom's brothers had heart problems well woman exam (40-65 years) Cardiovascular Risk Factors hypertension 09/08/2015 takes bp medication well woman exam (40-65 years) Cardiovascular Risk Factors dyslipidemia 09/08/2015 "takes 1/2 pill everyday" well woman exam (40-65 years) Cardiovascular Risk Factors obesity 09/08/2015 None well woman exam (40-65 years) Cardiovascular Risk Factors diabetes mellitus 09/08/2015 no longer has to take oral meds well woman exam (40-65 years) Cardiovascular Risk Factors lifestyle 09/08/2015 None well woman exam (40-65 years) Health Guidance self-breast exam 09/08/2015 None well woman exam (40-65 years) Health Guidance regular exercise 09/08/2015 None well woman exam (40-65 years) Sexual Activity is not sexually active 09/08/2015 None well woman exam (40-65 years) Immunizations tetanus-diphtheria booster 09/08/2015 None foot pain Location on the right 02/19/2015 None foot pain Quality constant 02/19/2015 feels like she dropped a brick on foot foot pain Onset of Symptom 1 months ago 02/19/2015 last week very painful constantly foot pain Pertinent Findings Denies bruising 02/19/2015 None foot pain Pertinent Findings limping 02/19/2015 None foot pain Pertinent Findings pain with movement 02/19/2015 None foot pain Pertinent Findings Denies warmth 02/19/2015 None foot pain Limitation on Activities allows weight bearing activity 02/19/2015 None foot pain Severity moderate 02/19/2015 None foot pain Mechanism of injury unknown 02/19/2015 None foot pain Sports Participation not significant 02/19/2015 None foot pain Initial treatment ice 02/19/2015 None foot pain Pertinent Findings swelling 02/19/2015 None heel pain Location on the right 12/18/2014 None heel pain Quality sharp pain 12/18/2014 None heel pain Onset of Symptom 5 weeks ago 12/18/2014 None heel pain Pertinent Findings tenderness 12/18/2014 None heel pain Location on the right 12/10/2014 None heel pain Quality sharp pain 12/10/2014 None heel pain Onset of Symptom 5 weeks ago 12/10/2014 None heel pain Pertinent Findings tenderness 12/10/2014 None knee pain Pertinent Findings pain with movement 12/10/2014 None anxiety Quality chronic 12/10/2014 None anxiety Triggers stress 12/10/2014 None urinary incontinence Quality chronic 09/05/2014 None urinary incontinence Quality urge incontinence 09/05/2014 None urinary incontinence Onset and Resolution ongoing 09/05/2014 None urinary incontinence Onset of Symptom "several" years ago 09/05/2014 None urinary incontinence Limitation on Activities moderately limits activities 09/05/2014 None urinary incontinence Triggers no known associated factors 09/05/2014 None urinary incontinence Pertinent Findings Denies bladder pain 09/05/2014 None urinary incontinence Pertinent Findings Denies lightheadedness 09/05/2014 None urinary incontinence Pertinent Findings urinary urgency 09/05/2014 None obesity Location diffusely 09/05/2014 None obesity Quality chronic 09/05/2014 None obesity Onset and Resolution ongoing 09/05/2014 None obesity Frequency of Episodes increasing 09/05/2014 None obesity Frequency of Episodes decreasing 09/05/2014 None obesity Frequency of Episodes unchanged 09/05/2014 None obesity Triggers change in diet 09/05/2014 None obesity Triggers change in exercise pattern 09/05/2014 None obesity Triggers no known associated factors 09/05/2014 None obesity Alleviating Factors exercise 09/05/2014 None obesity Alleviating Factors healthy food choices 09/05/2014 None obesity Alleviating Factors healthy lifestyle 09/05/2014 None obesity Alleviating Factors medication 09/05/2014 None obesity Exacerbating Factors poor food choices 09/05/2014 None obesity Exacerbating Factors inactivity 09/05/2014 None well woman exam (40-65 years) Pap Smear last normal performed on 07-20-13 08/01/2014 None well woman exam (40-65 years) Pap Smear thin prep 08/01/2014 None well woman exam (40-65 years) Pap Smear normal results 08/01/2014 None well woman exam (40-65 years) Pap Smear atypia 08/01/2014 None well woman exam (40-65 years) 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 None well woman exam (40-65 years) 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 urinary urgency 08/01/2014 "nothing different than before" takes vesicare well woman exam (40-65 years) 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 urinary incontinence 08/01/2014 None well woman exam (40-65 years) 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 pelvic pressure 08/01/2014 None well woman exam (40-65 years) 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 breast pain 08/01/2014 None well woman exam (40-65 years) 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 breast mass 08/01/2014 None well woman exam (40-65 years) 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 menopausal symptoms 08/01/2014 None well woman exam (40-65 years) 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 perimenopausal symptoms 08/01/2014 None well woman exam (40-65 years) Menstrual History last menstrual period __-__-__ 08/01/2014 hysterectomy approximately well woman exam (40-65 years) Cardiovascular Risk Factors family history of cardiovascular disease Mom's brothers had heart problems well woman exam (40-65 years) Cardiovascular Risk Factors hypertension 08/01/2014 takes bp medication well woman exam (40-65 years) Cardiovascular Risk Factors obesity 08/01/2014 None well woman exam (40-65 years) Cardiovascular Risk Factors dyslipidemia 08/01/2014 "takes 1/2 pill everyday" well woman exam (40-65 years) Cardiovascular Risk Factors diabetes mellitus 08/01/2014 no longer has to take oral meds well woman exam (40-65 years) Cardiovascular Risk Factors lifestyle 08/01/2014 None well woman exam (40-65 years) Lifestyle regular seatbelt use 08/01/2014 None well woman exam (40-65 years) Lifestyle satisfactory work experience 08/01/2014 None well woman exam (40-65 years) Control none 08/01/2014 None well woman exam (40-65 years) Nutrition and Exercise overweight 08/01/2014 None well woman exam (40-65 years) Nutrition and Exercise no exercise 08/01/2014 None well woman exam (40-65 years) Health Guidance self-breast exam 08/01/2014 None well woman exam (40-65 years) Health Guidance regular exercise 08/01/2014 None well woman exam (40-65 years) Sexual Activity is not sexually active 08/01/2014 None urinary incontinence Quality chronic 05/07/2014 None urinary incontinence Quality urge incontinence 05/07/2014 None urinary incontinence Onset and Resolution ongoing 05/07/2014 None urinary incontinence Onset of Symptom "several" years ago 05/07/2014 None urinary incontinence Limitation on Activities moderately limits activities 05/07/2014 None urinary incontinence Triggers no known associated factors 05/07/2014 None urinary incontinence Pertinent Findings Denies bladder pain 05/07/2014 None urinary incontinence Pertinent Findings Denies lightheadedness 05/07/2014 None urinary incontinence Pertinent Findings urinary urgency 05/07/2014 None obesity Alleviating Factors exercise 05/07/2014 None obesity Alleviating Factors healthy food choices 05/07/2014 None obesity Alleviating Factors healthy lifestyle 05/07/2014 None obesity Alleviating Factors medication 05/07/2014 None obesity Exacerbating Factors inactivity 05/07/2014 None obesity Exacerbating Factors poor food choices 05/07/2014 None obesity Frequency of Episodes decreasing 05/07/2014 None obesity Frequency of Episodes increasing 05/07/2014 None obesity Frequency of Episodes unchanged 05/07/2014 None obesity Location diffusely 05/07/2014 None obesity Onset and Resolution ongoing 05/07/2014 None obesity Quality chronic 05/07/2014 None obesity Triggers change in diet 05/07/2014 None obesity Triggers change in exercise pattern 05/07/2014 None obesity Triggers no known associated factors 05/07/2014 None Advance Directives No Advance Directive data Encounters Encounter Performer Location Codes Date [id number]) [id number] EST. PATIENT, LEVEL IV Diagnosis: Type 2 diabetes mellitus with diabetic autonomic (poly)neuropathy[ ICD10: E11.43] Diagnosis: Essential (primary) hypertension[ICD10: I10] Diagnosis: Other obesity due to excess calories[ICD10: E66.09] Diagnosis: Tinea corporis[ICD10: B35.4] Diagnosis: Insomnia due to medical condition[ICD10: G47.01] [facility] CPT-4: [id number] 06/07/2018 [id number]) [id number] EST. PATIENT, LEVEL IV Diagnosis: Essential (primary) hypertension[ICD10: I10] Diagnosis: Type 2 diabetes mellitus without complications[ICD10: E11.9] Diagnosis: Mixed hyperlipidemia[ICD10: E78.2] [facility] CPT-4: 86723 12/07/2017 [id number] EST. PATIENT, LEVEL IV Diagnosis: Other acute sinusitis[ICD10: J01.80] Diagnosis: Other allergic rhinitis[ICD10: J30.89] Qian Morris MD, [facility] CPT-4: 49938 11/20/2017 ([id number]) 91269 EST. PATIENT, LEVEL IV Diagnosis: Type 2 diabetes mellitus without complications[ICD10: E11.9] Diagnosis: Encounter for immunization[ICD10: Z23] Diagnosis: Essential (primary) hypertension[ICD10: I10] Diagnosis: Type 2 diabetes mellitus with diabetic autonomic (poly)neuropathy[ ICD10: E11.43] Inez Morris MD, [facility] CPT-4: 87102 07/24/2017 ([id number]) 49782 EST. PATIENT, LEVEL IV Diagnosis: Type 2 diabetes mellitus without complications[ICD10: E11.9] Diagnosis: Mixed hyperlipidemia[ICD10: E78.2] Diagnosis: Essential (primary) hypertension[ICD10: I10] Diagnosis: Other obesity due to excess calories[ICD10: E66.09] Diagnosis: Encounter for screening mammogram for malignant neoplasm of breast[ ICD10: Z12.31] Inez Morris MD, [facility] CPT-4: 34673 06/08/2017 ([id number]) 13644 EST. PATIENT, LEVEL IV Diagnosis: Essential (primary) hypertension[ICD10: I10] Diagnosis: Mixed incontinence[ICD10: N39.46] Diagnosis: Type 2 diabetes mellitus without complications[ICD10: E11.9] Diagnosis: Mixed hyperlipidemia[ICD10: E78.2] Inez Morris MD, [facility] CPT-4: 32775 12/07/2016 46358 EST. PATIENT, LEVEL IV Diagnosis: Mixed hyperlipidemia[ICD10: E78.2] Diagnosis: Other acute sinusitis[ICD10: J01.80] Qian Morris MD, [facility] CPT-4: 63676 11/30/2016 84968 EST. PATIENT, LEVEL III Diagnosis: Other allergic rhinitis[ICD10: J30.89] Diagnosis: Acute nasopharyngitis [common cold][ICD10: J00] Qian Morris MD, [facility] CPT-4: 15425 11/03/2016 ([id number]) 87506 EST. PATIENT, LEVEL IV Diagnosis: Mixed hyperlipidemia[ICD10: E78.2] Diagnosis: Type 2 diabetes mellitus without complications[ICD10: E11.9] Diagnosis: Actinic keratosis[ICD10: L57.0] Diagnosis: Inflamed seborrheic keratosis[ICD10: L82.0] Inez Morris MD, [facility] CPT-4: 35853 08/03/2016 ([id number]) 59750 EST. PATIENT, LEVEL IV Diagnosis: Type 2 diabetes mellitus without complications[ICD10: E11.9] Diagnosis: Essential (primary) hypertension[ICD10: I10] Diagnosis: Other obesity due to excess calories[ICD10: E66.09] Inez Morris MD, [facility] CPT-4: 00363 04/05/2016 91855 EST. PATIENT, LEVEL III Diagnosis: Rash and other nonspecific skin eruption[ICD10: R21] Qian Morris MD, [facility] CPT-4: 75400 11/04/2015 ([id number]) PREV VISIT EST AGE 40-64 Diagnosis: Encounter for gynecological examination (general) (routine) without abnormal findings[ICD10: Z01.419] Inez Morris MD, [facility] CPT-4: 10970 09/08/2015 ([id number]) 95236 EST. PATIENT, LEVEL II Diagnosis: Right foot pain[ICD9: 729.5] Shiloh Morris MD, [facility] CPT-4: 11218 02/19/2015 ([id number]) 11361 EST. PATIENT, LEVEL IV Diagnosis: Plantar fascia syndrome[ICD9: 728.71] Diagnosis: Heel pain[ICD9: 729.5] Inez Morris MD [facility] CPT-4: 32687 12/10/2014 ([id number]) 17525 EST. PATIENT, LEVEL IV Diagnosis: ESSENTIAL HYPERTENSION[ICD9: 401.9] Diagnosis: Depressive disorder[ICD9: 311] Inez Morris MD [facility] CPT- 4: 75471 09/05/2014 ([id number]) PREV VISIT EST AGE 40-64 Diagnosis: ROUTINE GYNE EXAM[ICD9: V72.31] [facility] CPT- 4: 38628 08/01/2014 ([id number]) OFFICE VISIT, NEW - LEVEL 4 Diagnosis: ESSENTIAL HYPERTENSION[ICD9: 401.9] Diagnosis: OBESITY[ICD9: 278.00] Diagnosis: Urinary urgency[ICD9: 788.63] Diagnosis: Depressive disorder[ICD9: 311] Diagnosis: HYPERLIPIDEMIA[ICD9: 272.4] Diagnosis: Myalgia and myositis[ICD9: 729.1] [facility] CPT-4: 96844 05/07/2014 Plan of Care Planned Activity Notes Codes Status Date Visit Plan: Diabetes Mellitus - controlled - per recent FSBS reports. I have recommended for the patient to have follow up labs prior to the next office visit. The patient has been instructed to continue with current medications as previously directed, continue with regular FSBS monitoring to assure continued control of diabetes. Pt to call for any acute concerns, complaints, or if the blood glucose readings are starting to become less controlled. Peripheral neuropathy - diabetic shoes rx for patient. Hypertension - well controlled - continue with current medications, continue with no added salt diet. Pt has been encouraged to exercise daily. The pt has been advised to call the office if there are any acute concerns about change in blood pressure readings at home. Obesity - recommended ideal protein diet. Tinea of body - rx for nystatin cream Insomnia - recommended extended release melatonin - 3 - 10mg. 06/07/2018 App[facility]ment: [phone] [facility] 06/07/2018 Patient Education: Patient Medication Summary Completed 06/07/2018 Appointment: [phone] (15 min) Moderate 06/05/2018 Visit Plan: Diabetes Mellitus - controlled - per recent FSBS reports. I have recommended for the patient to have follow up labs prior to the next office visit. The patient has been instructed to continue with current medications as previously directed, continue with regular FSBS monitoring to assure continued control of diabetes. Pt to call for any acute concerns, complaints, or if the blood glucose readings are starting to become less controlled. Peripheral neuropathy - mild - supportive care recommended. Hypertension - well controlled - continue with current medications, continue with no added salt diet. Pt has been encouraged to exercise daily. The pt has been advised to call the office if there are any acute concerns about change in blood pressure readings at home. Hyperlipidemia - pt has been counseled about appropriate diet, exercise, and need for low fat food choices. I have discussed the need for the patient to take medications as prescribed. If the patient has negative side effects from the medication, they are to CALL the office and not abruptly discontinue the medication without discussion with a practitioner in the office. We will check labs in 3-6 months for follow up on the patient's chronic medical problem and to assure normal liver response to medications. 12/07/2017 Appointment: Inez Morris WPtel: [address] (15 min) Moderate 12/07/2017 Patient Education: Patient Medication Summary Completed 12/07/2017 Visit Plan: Sinusitis - Pt has acute infection - pain in face, maxillary region, Pt informed to use decongestant, RX given to patient, sinus rinses also recommended. Call if symptoms do not show improvement. Allergies - chronic - recommended pt to use allergy medication as prescribed. Pt has been counseled as to the appropriate use of the medication. Pt to call if allergy symptoms are not controlled with the medication. If using nasal spray , instructions as follows: Nasal spray- use twice daily, one spray per nostril twice daily, after 30 minutes, rinse out nose with saline spray.. Use opposite hand per nostril to spray in the nasal steroid allergy spray. 11/20/2017 Appointment: Qian Burgos WPtel: [facility] (15 min) Moderate 11/20/2017 Patient Education: Patient Medication Summary Completed 11/20/2017 Visit Plan: Diabetes Mellitus - controlled - per recent FSBS reports. I have recommended for the patient to have follow up labs prior to the next office visit. The patient has been instructed to continue with current medications as previously directed, continue with regular FSBS monitoring to assure continued control of diabetes. Pt to call for any acute concerns, complaints, or if the blood glucose readings are starting to become less controlled. Peripheral neuropathy - mild - supportive care recommended. 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 07/24/2017 Appointment: [facility]ez Morris [phone] [facility] (15 min) Moderate 07/24/2017 Patient Education: Patient Medication Summary Completed 07/24/2017 Visit Plan: Hypertension - well controlled - continue with current medications, continue with no added salt diet. Pt has been encouraged to exercise daily. The pt has been advised to call the office if there are any acute concerns about change in blood pressure readings at home. Diabetes Mellitus - controlled - per recent FSBS reports. I have recommended for the patient to have follow up labs prior to the next office visit. The patient has been instructed to continue with current medications as previously directed, continue with regular FSBS monitoring to assure continued control of diabetes. Pt to call for any acute concerns, complaints, or if the blood glucose readings are starting to become less controlled. Hyperlipidemia - pt has been counseled about appropriate diet, exercise, and need for low fat food choices. I have discussed the need for the patient to take medications as prescribed. If the patient has negative side effects from the medication, they are to CALL the office and not abruptly discontinue the medication without discussion with a practitioner in the office. We will check labs in 3-6 months for follow up on the patient's chronic medical problem and to assure normal liver response to medications. - Cholesterol labs reviewed - Obesity - discussed with patient need to increase activity, decrease intake of carbohydrates. 06/08/2017 Appointment: Inez Morris WPtel: [facility] (15 min) Moderate 06/08/2017 Patient Education: Patient Medication Summary Completed 06/08/2017 Patient Education: Obesity Completed 06/08/2017 Referral: Dr Packer Patient informed. Referral info faxed. Completed 12/21/2016 Visit Plan: Hypertension - well controlled - continue with current medications, continue with no added salt diet. Pt has been encouraged to exercise daily. The pt has been advised to call the office if there are any acute concerns about change in blood pressure readings at home. Hyperlipidemia - pt has been counseled about appropriate diet, exercise, and need for low fat food choices. I have discussed the need for the patient to take medications as prescribed. If the patient has negative side effects from the medication, they are to CALL the office and not abruptly discontinue the medication without discussion with a practitioner in the office. We will check labs in 3-6 months for follow up on the patient's chronic medical problem and to assure normal liver response to medications. Diabetes Mellitus - controlled - per recent FSBS reports. I have recommended for the patient to have follow up labs prior to the next office visit. The patient has been instructed to continue with current medications as previously directed, continue with regular FSBS monitoring to assure continued control of diabetes. Pt to call for any acute concerns, complaints, or if the blood glucose readings are starting to become less controlled. Urge incontinence - RX sent to pharmacy 12/07/2016 Appointment: Inez Morris [facility]Ptel[phone] [facility] (15 min) Moderate 12/07/2016 Patient Education: Patient Medication Summary Completed 12/07/2016 Patient Education: Obesity Completed 12/07/2016 Care Plan: Referral Order SNOMED-CT : [id number] Pending 12/07/2016 Visit Plan: Sinusitis - Pt has acute infection - pain in face, maxillary region, Pt informed to use decongestant, RX given to patient, sinus rinses also recommended. Call if symptoms do not show improvement. URI - Pt advised to increase fluids, vitamin C. Discussed natural and expected course of this diagnosis and need to alert me if symptoms do not follow expected course , or if any worse. RX sent to patient's pharmacy. 11/30/2016 Appointment: Qian Burgos WPtel: [facility] (10 min) Simple 11/30/2016 Patient Education: Patient Medication Summary Completed 11/30/2016 Visit Plan: URI - Pt advised to increase fluids, vitamin C. Discussed natural and expected course of this diagnosis and need to alert me if symptoms do not follow expected course, or if any worse. RX sent to patient' s pharmacy. Allergies - chronic - recommended pt to use allergy medication as prescribed. Pt has been counseled as to the appropriate use of the medication. Pt to call if allergy symptoms are not controlled with the medication. If using nasal spray, instructions as follows: Nasal spray- use twice daily, one spray per nostril twice daily, after 30 minutes, rinse out nose with saline spray.. Use opposite hand per nostril to spray in the nasal steroid allergy spray. 11/03/2016 Appointment: Q[facility] Burgos [facility]Ptel[phone] [facility] (10 min) Simple 11/03/2016 Patient Education: Patient Medication Summary Completed 11/03/2016 Visit Plan: Hypertension - well controlled - continue with current medications, continue with no added salt diet. Pt has been encouraged to exercise daily. The pt has been advised to call the office if there are any acute concerns about change in blood pressure readings at home. Diabetes Mellitus - controlled - per recent FSBS reports. I have recommended for the patient to have follow up labs prior to the next office visit. The patient has been instructed to continue with current medications as previously directed, continue with regular FSBS monitoring to assure continued control of diabetes. Pt to call for any acute concerns, complaints, or if the blood glucose readings are starting to become less controlled. Wound Instructions - Pt was instructed to keep the wound clean, wash with antibacterial soap, use triple antibiotic ointment, call if redness, pustular drainage, or any other acute concerns. 08/03/2016 Appointment: Inez Morris WPtel: [phone] [facility] (15 min) Moderate 08/03/2016 Patient Education: Patient Medication Summary Completed 08/03/2016 Patient Education: Obesity Completed 08/03/2016 Appointment: Real 07/27/2016 Patient Education: Patient Medication Summary Completed 07/27/2016 Visit Plan: Diabetes Mellitus - controlled - per recent FSBS reports. I have recommended for the patient to have follow up labs prior to the next office visit. The patient has been instructed to continue with current medications as previously directed, continue with regular FSBS monitoring to assure continued control of diabetes. Pt to call for any acute concerns, complaints, or if the blood glucose readings are starting to become less controlled. Hypertension - well controlled - continue with current medications, continue with no added salt diet. Pt has been encouraged to exercise daily. The pt has been advised to call the office if there are any acute concerns about change in blood pressure readings at home. Obesity - pt has lost 30# in 3 months - continue with exercise and dietary changes. 04/05/2016 Appointment: Inez Morris WPtel: [phone] [facility] [place] (15 min) Moderate 04/05/2016 Patient Education: Patient Medication Summary Completed 04/05/2016 Patient Education: Obesity Completed 04/05/2016 Visit Plan: Welcome to Medicare Exam - today we discussed the patients past history, immunizations, preventative exams/evaluations - colonoscopy, fecal occult blood testing, routine labs for renal function, glucose, cholesterol, osteoporosis evaluations, cardiovascular testing and cancer screenings. We have also discussed mental health and the signs/symptoms of depression. The patient was advised of home safety evaluations and the need to make sure that as the aging process continues, we need to be aware of different ways to make the home a safer place to reside. The patient has also been counseled that exercise is necessary - and of utmost importance as we age to help decrease fall risk and to maintain independece in the home. 12/31/2015 Patient Education: Patient Medication Summary Completed 12/31/2015 Patient Education: Obesity Completed 12/31/2015 Care Plan: BMI Above normal followup SELF-MGMT EDUC & TRAIN 1 PT Ordered 2015 Appointment: [facility] - Welcome to Medicare visit 12/29/2015 Appointment: [facility] - Welcome to Medicare visit 11/24/2015 Visit Plan: Pt states that she babysat her grandchild a couple of days ago and that she noticed she had a red rash shortly after. Pt states that the rash is "splotchy" and very itchy. Pt has multiple areas of dermatitis. Pt states that she does not know if they had changed laundry detergent, and that she started taking a different brand of aspirin in the last few days. Pt states that she also started using a different deodorant. Pt was instructed to switch back to her previous brand of aspirin and deodorant and to wash her clothes in a sensitive formula of detergent. Pt has an appointment today for a knee joint injection. Will start pt on Prednisone burst and consider giving steroid shot if no improvement to rash. Pt is to start claritin and Pepcid. Pt is to notify clinic or go to the ED if her symptoms worsen, or with any swelling or shortness of breath. 11/04/2015 Appointment: (30 min) Complex 11/04/2015 Patient Education: Patient Medication Summary Completed 11/04/2015 Visit Plan: Well Adult Female - exam completed. Pap and breast exam completed. Pt will be called with results of her testing. She was advised to continue with yearly annual exams. Safe sex practices discussed during office visit today. Call if any abnormal gynecologic issues during the next year, otherwise, RTC yearly or prn. 09/08/2015 Appointment: Inez Morris [facility]Ptel[phone] [facility] [facility] 09/08/2015 Patient Education: Patient Medication Summary Completed 09/08/2015 Care Plan: PAP Pending 09/08/2015 Visit Plan: Right foot pain-xray right foot and proceed as indicated 02/19/2015 Appointment: Sick 02/19/2015 Patient Education: Patient Medication Summary Completed 02/19/2015 Visit Plan: Heel Injection - Pt was given post - injection instructions. The pt has been advised to use anti-inflammatories post injection today, ice to the injected site, call if redness, warmth, or increased pain occurs at the site of injection. 12/18/2014 Appointment: Inez Morris [facility]Ptel[phone] [facility] Follow up 12/18/2014 Patient Education: Patient Medication Summary Completed 12/18/2014 Visit Plan: Plantar fasciitis- pt was educated that this is an inflammatory process, need to stretch the foot and reduce inflammation until the pain is improved. Pt advised to purchase shoes that have better arch support. 12/10/2014 Patient Education: Patient Medication Summary Completed 12/10/2014 Visit Plan: Hypertension - uncontrolled - the patient's medications have been modified as documented in the visit note. The patient has been counseled to cut back on salt in diet for a no added salt diet, low fat diet, start an exercise program with low weight bearing exercises and higher aerobic activity for heart health. The patient is to check blood pressure readings as an outpatient and either fax, call, or email the readings to the office next week for practitioner to review. The pt is to call for acute concerns. Depression - uncontrolled - Pt has been counseled about the diagnosis of depression, the potential causes, and risks associated with the diagnosis. The pt denies suicidal ideation, or plans. The patient has been counseled about treatment options, and understands the risks associated with treatment of depression, as well as the risks associated with NOT treating the depression. I believe the pt will benefit from medical intervention and an antidepressant has been appropriately prescribed for this patient. 09/05/2014 Appointment: Inez Morris WPtel: [facility] Follow [facility] 09/05/2014 Patient Education: Patient Medication Summary Completed 09/05/2014 Patient Education: Hypertension Completed 09/05/2014 Visit Plan: Well Adult Female - exam completed. Pap and breast exam completed. Pt will be called with results of her testing. She was advised to continue with yearly annual exams. Safe sex practices discussed during office visit today. Call if any abnormal gynecologic issues during the next year, otherwise, RTC yearly or prn. 08/01/2014 Appointment: Inez Morris WPtel: [address] [place], [place] [id number] [facility] 08/01/2014 Patient Education: Patient Medication Summary Completed 08/01/2014 Care Plan: PAP Pending 08/01/2014 Appointment: Inez Morris WPtel: [facility] Follow [facility] 06/26/2014 Appointment: Inez Morris WPtel: [address] [place] [id number] Lab Draw 05/15/2014 Patient Education: Patient Medication Summary Completed 05/15/2014 Patient Education: Hypertension Completed 05/15/2014 Visit Plan: Hypertension - well controlled - continue with current medications, continue with no added salt diet. Pt has been encouraged to exercise daily. The pt has been advised to call the office if there are any acute concerns about change in blood pressure readings at home. Obesity - chronic issue with this patient. The pt has been counseled about diet changes, calorie restriction, and need to exercise. Pt will RTC in one month for weight check. RX for bleviq - pt to call if RX not covered by insurance. Hyperlipidemia - pt has been counseled about appropriate diet, exercise, and need for low fat food choices. I have discussed the need for the patient to take medications as prescribed. If the patient has negative side effects from the medication, they are to CALL the office and not abruptly discontinue the medication without discussion with a practitioner in the office. We will check labs in 3-6 months for follow up on the patient's chronic medical problem and to assure normal liver response to medications. Myalgia and myositis - decrease dose of lipitor, monitor muscle aches and call if not improving. Depression - Chronic problem, continue with celexa - advised pt to consider counseling. 05/07/2014 Appointment: Inez Morris WPtel: [phone] [facility] New Patient 05/07/2014 Patient Education: Patient Medication Summary Completed 05/07/2014 Appointment: Inez Morris WPtel: [phone] [facility] New Patient 04/30/2014 Appointment: Inez Morris WPtel: [phone] [facility] New Patient 04/28/2014 Referral: Dr Packer Referral Appointment Requested Instructions Comment . Diabetes Mellitus - controlled - per recent FSBS reports. I have recommended for the patient to have follow up labs prior to the next office visit. The patient has been instructed to continue with current medications as previously directed, continue with regular FSBS monitoring to assure continued control of diabetes. Pt to call for any acute concerns, complaints, or if the blood glucose readings are starting to become less controlled. Hypertension - well controlled - continue with current medications, continue with no added salt diet. Pt has been encouraged to exercise daily. The pt has been advised to call the office if there are any acute concerns about change in blood pressure readings at home. Obesity - pt has lost 30# in 3 months - continue with exercise and dietary changes. . Well Adult Female - exam completed. Pap and breast exam completed. Pt will be called with results of her testing. She was advised to continue with yearly annual exams. Safe sex practices discussed during office visit today. Call if any abnormal gynecologic issues during the next year, otherwise, RTC yearly or prn. . Diabetes Mellitus - controlled - per recent FSBS reports. I have recommended for the patient to have follow up labs prior to the next office visit. The patient has been instructed to continue with current medications as previously directed, continue with regular FSBS monitoring to assure continued control of diabetes. Pt to call for any acute concerns, complaints, or if the blood glucose readings are starting to become less controlled. Peripheral neuropathy - mild - supportive care recommended. Hypertension - well controlled - continue with current medications, continue with no added salt diet. Pt has been encouraged to exercise daily. The pt has been advised to call the office if there are any acute concerns about change in blood pressure readings at home. Hyperlipidemia - pt has been counseled about appropriate diet, exercise, and need for low fat food choices. I have discussed the need for the patient to take medications as prescribed. If the patient has negative side effects from the medication, they are to CALL the office and not abruptly discontinue the medication without discussion with a practitioner in the office. We will check labs in 3-6 months for follow up on the patient's chronic medical problem and to assure normal liver response to medications. extended release melatonin - 3 - 10mg . Diabetes Mellitus - controlled - per recent FSBS reports. I have recommended for the patient to have follow up labs prior to the next office visit. The patient has been instructed to continue with current medications as previously directed, continue with regular FSBS monitoring to assure continued control of diabetes. Pt to call for any acute concerns, complaints, or if the blood glucose readings are starting to become less controlled. Peripheral neuropathy - diabetic shoes rx for patient. Hypertension - well controlled - continue with current medications, continue with no added salt diet. Pt has been encouraged to exercise daily. The pt has been advised to call the office if there are any acute concerns about change in blood pressure readings at home. Obesity - recommended ideal protein diet. Tinea of body - rx for nystatin cream Insomnia - recommended extended release melatonin - 3 - 10mg. . Well Adult Female - exam completed. Pap and breast exam completed. Pt will be called with results of her testing. She was advised to continue with yearly annual exams. Safe sex practices discussed during office visit today. Call if any abnormal gynecologic issues during the next year, otherwise, RTC yearly or prn. zantac 150mg over the counter - twice a day - for antacid keflex and steroid shot today get zyrtec over the counter . Sinusitis - Pt has acute infection - pain in face , maxillary region, Pt informed to use decongestant, RX given to patient, sinus rinses also recommended. Call if symptoms do not show improvement. Allergies - chronic - recommended pt to use allergy medication as prescribed. Pt has been counseled as to the appropriate use of the medication. Pt to call if allergy symptoms are not controlled with the medication. If using nasal spray, instructions as follows: Nasal spray- use twice daily, one spray per nostril twice daily, after 30 minutes, rinse out nose with saline spray.. Use opposite hand per nostril to spray in the nasal steroid allergy spray. decrease the lipitor to two days a week . Hypertension - well controlled - continue with current medications, continue with no added salt diet. Pt has been encouraged to exercise daily. The pt has been advised to call the office if there are any acute concerns about change in blood pressure readings at home. Obesity - chronic issue with this patient. The pt has been counseled about diet changes, calorie restriction, and need to exercise. Pt will RTC in one month for weight check. RX for bleviq - pt to call if RX not covered by insurance. Hyperlipidemia - pt has been counseled about appropriate diet, exercise, and need for low fat food choices. I have discussed the need for the patient to take medications as prescribed. If the patient has negative side effects from the medication, they are to CALL the office and not abruptly discontinue the medication without discussion with a practitioner in the office. We will check labs in 3-6 months for follow up on the patient's chronic medical problem and to assure normal liver response to medications. Myalgia and myositis - decrease dose of lipitor, monitor muscle aches and call if not improving. Depression - Chronic problem, continue with celexa - advised pt to consider counseling. . Hypertension - well controlled - continue with current medications, continue with no added salt diet. Pt has been encouraged to exercise daily. The pt has been advised to call the office if there are any acute concerns about change in blood pressure readings at home. Diabetes Mellitus - controlled - per recent FSBS reports. I have recommended for the patient to have follow up labs prior to the next office visit. The patient has been instructed to continue with current medications as previously directed, continue with regular FSBS monitoring to assure continued control of diabetes. Pt to call for any acute concerns, complaints, or if the blood glucose readings are starting to become less controlled. Hyperlipidemia - pt has been counseled about appropriate diet, exercise, and need for low fat food choices. I have discussed the need for the patient to take medications as prescribed. If the patient has negative side effects from the medication, they are to CALL the office and not abruptly discontinue the medication without discussion with a practitioner in the office. We will check labs in 3-6 months for follow up on the patient's chronic medical problem and to assure normal liver response to medications. - Cholesterol labs reviewed - Obesity - discussed with patient need to increase activity, decrease intake of carbohydrates. . Plantar fasciitis- pt was educated that this is an inflammatory process, need to stretch the foot and reduce inflammation until the pain is improved. Pt advised to purchase shoes that have better arch support. . Right foot pain-xray right foot and proceed as indicated . Pt states that she babysat her grandchild a couple of days ago and that she noticed she had a red rash shortly after. Pt states that the rash is "splotchy" and very itchy. Pt has multiple areas of dermatitis. Pt states that she does not know if they had changed laundry detergent, and that she started taking a different brand of aspirin in the last few days. Pt states that she also started using a different deodorant. Pt was instructed to switch back to her previous brand of aspirin and deodorant and to wash her clothes in a sensitive formula of detergent. Pt has an appointment today for a knee joint injection. Will start pt on Prednisone burst and consider giving steroid shot if no improvement to rash. Pt is to start claritin and Pepcid. Pt is to notify clinic or go to the ED if her symptoms worsen, or with any swelling or shortness of breath. Probiotic - Helpstream, [employer]Caster, or generic while on the antibiotic. Sinusitis - Pt has acute infection - pain in face, maxillary region, Pt informed to use decongestant, RX given to patient, sinus rinses also recommended. Call if symptoms do not show improvement. URI - Pt advised to increase fluids, vitamin C. Discussed natural and expected course of this diagnosis and need to alert me if symptoms do not follow expected course, or if any worse. RX sent to patient's pharmacy. retinol - the ingredient to look for in face cream . Hypertension - well controlled - continue with current medications, continue with no added salt diet. Pt has been encouraged to exercise daily. The pt has been advised to call the office if there are any acute concerns about change in blood pressure readings at home. Hyperlipidemia - pt has been counseled about appropriate diet, exercise, and need for low fat food choices. I have discussed the need for the patient to take medications as prescribed. If the patient has negative side effects from the medication, they are to CALL the office and not abruptly discontinue the medication without discussion with a practitioner in the office. We will check labs in 3-6 months for follow up on the patient's chronic medical problem and to assure normal liver response to medications. Diabetes Mellitus - controlled - per recent FSBS reports. I have recommended for the patient to have follow up labs prior to the next office visit. The patient has been instructed to continue with current medications as previously directed, continue with regular FSBS monitoring to assure continued control of diabetes. Pt to call for any acute concerns, complaints, or if the blood glucose readings are starting to become less controlled. Urge incontinence - RX sent to pharmacy . Hypertension - uncontrolled - the patient's medications have been modified as documented in the visit note. The patient has been counseled to cut back on salt in diet for a no added salt diet, low fat diet, start an exercise program with low weight bearing exercises and higher aerobic activity for heart health. The patient is to check blood pressure readings as an outpatient and either fax , call, or email the readings to the office next week for practitioner to review. The pt is to call for acute concerns. Depression - uncontrolled - Pt has been counseled about the diagnosis of depression, the potential causes, and risks associated with the diagnosis. The pt denies suicidal ideation, or plans. The patient has been counseled about treatment options, and understands the risks associated with treatment of depression, as well as the risks associated with NOT treating the depression. I believe the pt will benefit from medical intervention and an antidepressant has been appropriately prescribed for this patient. . Diabetes Mellitus - controlled - per recent FSBS reports. I have recommended for the patient to have follow up labs prior to the next office visit. The patient has been instructed to continue with current medications as previously directed, continue with regular FSBS monitoring to assure continued control of diabetes. Pt to call for any acute concerns, complaints, or if the blood glucose readings are starting to become less controlled. Peripheral neuropathy - mild - supportive care recommended. 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 . Welcome to Medicare Exam - today we discussed the patients past history, immunizations, preventative exams/evaluations - colonoscopy, fecal occult blood testing, routine labs for renal function, glucose, cholesterol, osteoporosis evaluations, cardiovascular testing and cancer screenings. We have also discussed mental health and the signs/symptoms of depression. The patient was advised of home safety evaluations and the need to make sure that as the aging process continues, we need to be aware of different ways to make the home a safer place to reside. The patient has also been counseled that exercise is necessary - and of utmost importance as we age to help decrease fall risk and to maintain independece in the home. . URI - Pt advised to increase fluids, vitamin C. Discussed natural and expected course of this diagnosis and need to alert me if symptoms do not follow expected course, or if any worse. RX sent to patient's pharmacy. Allergies - chronic - recommended pt to use allergy medication as prescribed. Pt has been counseled as to the appropriate use of the medication. Pt to call if allergy symptoms are not controlled with the medication. If using nasal spray, instructions as follows: Nasal spray- use twice daily, one spray per nostril twice daily, after 30 minutes, rinse out nose with saline spray.. Use opposite hand per nostril to spray in the nasal steroid allergy spray. . Hypertension - well controlled - continue with current medications, continue with no added salt diet. Pt has been encouraged to exercise daily. The pt has been advised to call the office if there are any acute concerns about change in blood pressure readings at home. Diabetes Mellitus - controlled - per recent FSBS reports. I have recommended for the patient to have follow up labs prior to the next office visit. The patient has been instructed to continue with current medications as previously directed, continue with regular FSBS monitoring to assure continued control of diabetes. Pt to call for any acute concerns, complaints, or if the blood glucose readings are starting to become less controlled. Wound Instructions - Pt was instructed to keep the wound clean, wash with antibacterial soap, use triple antibiotic ointment, call if redness, pustular drainage, or any other acute concerns. . Heel Injection - Pt was given post - injection instructions. The pt has been advised to use anti-inflammatories post injection today, ice to the injected site, call if redness, warmth, or increased pain occurs at the site of injection.
--- OUTSIDE RECORDS SUMMARY | 2018-09-05 22:39 | XMS REPORT | CCD ---
Author Author Inez Morris Organization Inez Morris MD, [facility] Address [address] [place] [address] Phone Care Team Providers Care Japanese Tutor Name Role Phone Inez Morris PP Unavailable CCM Unavailable Summary Purpose Interface Exchange Insurance Providers Payer name Policy type / Coverage type Covered green party ID Effective Begin Date Effective End Date WPS Medicare Part B Medicare Part B [id number] 2015 Unknown AARP Medicare Part B [id number] 2015 Unknown Family history Mother Diagnosis Age [...] Unknown Retired 05/07/[address]: 822950490 Never smoker 05/07/[address]: 626338065 Never drinks alcohol 05/07/2014 Has the patient [...] Start Date Stop Date Status Fill Instructions nystatin 100,000 unit/gram topical cream RxNorm: 132270 1 Gram(s) TOP TID 06/07/2018 06/26/2018 Active scopolamine 1 mg over 3 days transdermal patch RxNorm: 064002 1 Patch TD Q72H 06/07/2018 06/19/2018 Active metformin 500 mg tablet RxNorm: 589514 TAKE 1/2 TABLET TWICE DAILY 04/12/2018 04/06/2019 Active oxybutynin chloride ER 10 mg tablet,extended release 24 hr RxNorm: 440954 1 Tablet (s) PO daily 03/01/2018 02/23/2019 Active citalopram 20 mg tablet RxNorm: 173001 TAKE 1 TABLET EVERY DAY 01/15/2018 01/09/2019 Active atorvastatin 10 mg tablet RxNorm: 573948 TAKE 1/2 TABLET DAILY 01/03/2018 12/28/2018 Active oxybutynin chloride ER 10 mg tablet,extended release 24 hr RxNorm: 931657 1 Tablet (s) PO daily 12/07/2017 02/28/2018 Inactive Kenalog 40 mg/mL suspension for injection RxNorm: 6590177 1 Milliliter(s) Inj 11/20/2017 11/20/2017 Inactive Keflex 500 mg capsule RxNorm: 330378 1 Capsule(s) PO TID 201711/29/2017 Inactive losartan 25 mg tablet RxNorm: 423719 TAKE 1 TABLET EVERY DAY 11/07/2018 Active Valtrex 1 gram tablet RxNorm: 164188 1 Tablet(s) PO daily as needed 09/20/2017 No Stop Date Active Valtrex 1 gram tablet RxNorm: 161385 1 Tablet(s) PO daily as needed 06/28/2017 09/19/2017 Inactive Transderm-Scop 1.5 mg transdermal patch (1 mg over 3 days) RxNorm: 206773 1 Patch TD Q72H 06/08/2017 06/20/2017 Inactive nystatin 100,000 unit/gram topical cream RxNorm: 507540 1 Gram(s) TOP TID 06/08/2017 06/27/2017 Inactive alprazolam 0.25 mg tablet RxNorm: 768171 1 Tablet(s) PO TID as needed 04/21/2017 07/19/2017 Inactive metformin 500 mg tablet RxNorm: 391561 1/2 Tablet(s) PO BID 09/201701/19/2018 Inactive estradiol 0.5 mg tablet RxNorm: 515289 1 Tablet(s) PO BID 01/2001/14/2018 Inactive metformin 500 mg tablet RxNorm: 325620 1/2 Tablet(s) PO BID 04/201701/24/2017 Inactive estradiol 0.5 mg tablet RxNorm: 095170 1 Tablet(s) PO BID 01/1601/19/2017 Inactive metformin 500 mg tablet RxNorm: 086132 1/2 Tablet(s) PO BID 12/201601/19/2017 Inactive atorvastatin 10 mg tablet RxNorm: 844994 1/2 Tablet(s) PO daily 12/07/2016 12/01/2017 Inactive losartan 25 mg tablet RxNorm: 297418 1 Tablet(s) PO daily 201609/02/2017 Inactive trospium 20 mg tablet RxNorm: 466759 1 Tablet(s) PO BID 201612/06/2017 Inactive citalopram 20 mg tablet RxNorm: 498279 1 Tablet(s) PO daily 12/01/2017 Inactive Keflex 500 mg capsule RxNorm: 765091 1 Capsule(s) PO TID 201612/09/2016 Inactive trospium 20 mg tablet RxNorm: 448979 1 Tablet(s) PO BID 201612/06/2016 Inactive amoxicillin 500 mg capsule RxNorm: 579581 1 Capsule(s) PO TID 11/04/2016 11/13/2016 Inactive amoxicillin 500 mg capsule RxNorm: 610960 1 Capsule(s) PO TID 11/04/2016 11/03/2016 Inactive Flonase Allergy Relief 50 mcg/actuation nasal spray, suspension RxNorm: 3530761 1 [place] NASAL BID 11/03/2016 No Stop Date Active Myrbetriq 50 mg tablet,extended release RxNorm: 9327019 1 Tablet(s) PO daily 11/03/2016 12/06/2017 Inactive Zyrtec 10 mg tablet RxNorm: 3668323 1 Tablet(s) PO daily 11/0312/02/2016 Inactive estradiol 0.5 mg tablet RxNorm: 746285 1 Tablet(s) PO BID 08/0301/15/2017 Inactive Transderm-Scop 1.5 mg transdermal patch (1 mg over 3 days) RxNorm: 450763 1 Patch TD Q72H 08/03/2016 09/01/2016 Inactive trospium 20 mg tablet RxNorm: 239014 1 Tablet(s) PO BID 201511/21/2016 Inactive trospium 20 mg tablet RxNorm: 914189 1 Tablet(s) PO BID 201512/06/2017 Inactive Valtrex 1 gram tablet RxNorm: 694942 1 Tablet(s) PO TID as needed 05/04/2016 05/07/2016 Inactive Valtrex 1 gram tablet RxNorm: 622602 1 Tablet(s) PO TID as needed 05/04/2016 05/03/2016 Inactive lisinopril 10 mg tablet RxNorm: 257798 1 Tablet(s) PO daily 12/06/2016 Inactive estradiol 1 mg tablet RxNorm: 035865 Tablet(s) 1 TABLET(S) PO DAILY 04/29/2016 08/02/2016 Inactive metformin 500 mg tablet RxNorm: 404904 1/2 Tablet(s) PO BID 01/201601/15/2017 Inactive estradiol 1 mg tablet RxNorm: 525846 Tablet(s) 1 TABLET(S) PO DAILY 02/17/2016 04/28/2016 Inactive citalopram 20 mg tablet RxNorm: 242269 1 Tablet(s) PO daily 12/06/2016 Inactive atorvastatin 10 mg tablet RxNorm: 610529 1/2 Tablet(s) PO daily 01/12/2016 12/06/2016 Inactive atorvastatin 10 mg tablet RxNorm: 492109 1/2 Tablet(s) PO daily 01/05/2016 01/11/2016 Inactive lisinopril 10 mg tablet RxNorm: 389900 2 Tablet(s) PO daily 04/28/2016 Inactive citalopram 20 mg tablet RxNorm: 671471 1 Tablet(s) PO daily 01/11/2016 Inactive betamethasone valerate 0.1 % topical cream RxNorm: 110008 1 Application TOP TID as needed 12/31/2015 No Stop Date Active prednisone 20 mg tablet RxNorm: 697442 3 Tablet(s) PO daily 11/08/2015 Inactive estradiol 1 mg tablet RxNorm: 836633 1 TABLET(S) PO DAILY 201402/16/2016 Inactive aspirin 81 mg capsule,delayed release RxNorm: 745612 1 Capsule(s) PO daily 09/08/2015 09/01/2016 Inactive naproxen 500 mg tablet RxNorm: 961442 1 Tablet(s) PO BID as needed for pain 09/08/2015 09/01/2016 Inactive nystatin 100,000 unit/gram topical cream RxNorm: 077620 1 Gram(s) TOP TID 09/08/2015 09/27/2015 Inactive naproxen 500 mg tablet RxNorm: 324161 1 Tablet(s) PO BID as needed for pain 09/08/2015 09/07/2015 Inactive alprazolam 0.25 mg tablet RxNorm: 691315 1 Tablet(s) PO TID as needed 08/17/2015 04/20/2017 Inactive atorvastatin 10 mg tablet RxNorm: 193720 1/2 Tablet(s) PO daily 05/07/2015 01/04/2016 Inactive estradiol 1 mg tablet RxNorm: 872942 1 Tablet(s) PO daily 201408/12/2015 Inactive metformin 500 mg tablet RxNorm: 279663 1/2 Tablet(s) PO BID 11/201402/16/2016 Inactive citalopram 20 mg tablet RxNorm: 610345 1 Tablet(s) PO daily 11/201401/04/2016 Inactive metformin 500 mg tablet RxNorm: 752580 1/2 Tablet(s) PO BID 07/201501/14/2015 Inactive metformin 500 mg tablet RxNorm: 787724 1/2 Tablet(s) PO QHS x1 week then increase to 1/2 BID 12/23/2014 04/11/2018 Inactive metformin 500 mg tablet RxNorm: 258125 1/2 Tablet(s) PO QHS x1 week then 1/2 tab po BID there after 12/23/2014 12/22/2014 Inactive metformin 500 mg tablet RxNorm: 361499 1/2 Tablet(s) PO BID 07/201512/22/2014 Inactive Kenalog 40 mg/mL suspension for injection RxNorm: 3989794 1 Milliliter(s) Inj 12/19/2014 12/19/2014 Inactive lisinopril 10 mg tablet RxNorm: 478689 1 Tablet(s) PO daily 01/04/2016 Inactive alprazolam 0.25 mg tablet RxNorm: 775022 1 Tablet(s) PO TID as needed 12/10/2014 08/16/2015 Inactive trospium 20 mg tablet RxNorm: 303307 1 Tablet(s) PO BID START WITH DAILY, AND INCREASE TO BID IF NEEDED FOR TX OF INCONTINENCE 12/10/2014 07/26/2016 Inactive trospium 20 mg tablet RxNorm: 379171 1 Tablet(s) PO BID START WITH DAILY, AND INCREASE TO BID IF NEEDED FOR TX OF INCONTINENCE 11/28/2014 12/09/2014 Inactive trospium 20 mg tablet RxNorm: 079514 1 Tablet(s) PO BID START WITH DAILY, AND INCREASE TO BID IF NEEDED FOR TX OF INCONTINENCE 11/28/2014 11/27/2014 Inactive lisinopril 10 mg tablet RxNorm: 587936 TAKE ONE TABLET BY MOUTH DAILY 11/17/2014 12/16/2014 Inactive Vesicare 10 mg tablet RxNorm: 487082 1 Tablet(s) PO daily 201411/27/2014 Inactive lisinopril 10 mg tablet RxNorm: 925377 1 Tablet(s) PO daily 12/09/2014 Inactive lisinopril 10 mg tablet RxNorm: 241707 1 Tablet(s) PO daily 10/04/2014 Inactive citalopram 20 mg tablet RxNorm: 024918 1 Tablet(s) PO daily 01/14/2015 Inactive Vesicare 10 mg tablet RxNorm: 534658 1 Tablet(s) PO daily 201311/16/2014 Inactive lisinopril 10 mg tablet RxNorm: 125779 1/2 Tablet(s) PO daily 05/07/2014 06/05/2014 Inactive Belviq 10 mg tablet RxNorm: 1782194 1 Tablet(s) PO BID 201309/04/2014 Inactive atorvastatin 10 mg tablet RxNorm: 984227 1/2 Tablet(s) PO daily 05/07/2014 06/05/2014 Inactive citalopram 20 mg tablet RxNorm: 224593 1/2 Tablet(s) PO daily 05/07/2014 06/05/2014 Inactive estradiol 1 mg tablet RxNorm: 214152 1 Tablet(s) PO daily 201306/05/2014 Inactive Vitamin D3 1,000 unit capsule RxNorm: 538280 Capsule(s) PO daily No Start Date Active Centrum Silver tablet RxNorm: 1 Tablet(s) PO daily No Start Date Active Caltrate 600 + D oral RxNorm: 562006 oral No Start Date Active naproxen 500 mg tablet RxNorm: 017563 1 Tablet(s) PO BID as needed No Start Date 05/06/2014 Inactive Vesicare 10 mg tablet RxNorm: 126889 1 Tablet(s) PO daily No Start Date 07/20/2014 Inactive alprazolam 0.25 mg tablet RxNorm: 354189 1 Tablet(s) PO TID as needed No Start Date 12/09/2014 Inactive Medication Administered Medication Codes Instructions Start Date Status Kenalog 40 mg/mL suspension for injection RxNorm: 3875976 1Milliliter 11/20/2017 No longer Active Kenalog 40 mg/mL suspension for injection RxNorm: 7917152 1Milliliter 12/19/2014 No longer Active Immunizations Vaccine [...] Item Item Code Result Date Comp Metabolic Yba962 NA 139 mEq/L 05/31/2018 Comp Metabolic Qsd370 K 4.0 mEq/L 05/31/2018 Comp Metabolic Uub956 CL 103 mEq/L 05/31/2018 Comp Metabolic Lxq866 CO2 28.0 mEq/L 05/31/2018 Comp Metabolic Rxz038 ANION GAP 12 05/31/2018 Comp Metabolic Yaf848 GLUCOSE 119 mg/dL 05/31/2018 Comp Metabolic Ikm557 Creat 0.8 mg/dL 05/31/2018 Comp Metabolic Gsb900 eGFR 74 ml/min/1.73m2 05/31/2018 Comp Metabolic Uwe285 BUN 14 mg/dL 05/31/2018 Comp Metabolic Mce422 B/C Ratio 17.1 Ratio 05/31/2018 Comp Metabolic Jch626 CALCIUM 8.9 mg/dL 05/31/2018 Comp Metabolic Wva590 ALK PHOS 63 U/L 05/31/2018 Comp Metabolic Sbt568 AST(SGOT) 16 U/L 05/31/2018 Comp Metabolic Ysj964 ALT(SGPT) 14 U/L 05/31/2018 Comp Metabolic Ffy741 BILI T 0.7 mg/dL 05/31/2018 Comp Metabolic Utv302 ALBUMIN 3.7 g/dL 05/31/2018 Comp Metabolic Fdx073 TPRO 6.3 g/dL 05/31/2018 Comp Metabolic Gem089 GLOB 2.6 g/dL 05/31/2018 Comp Metabolic Wfg157 A/G Ratio 1.4 Ratio 05/31/2018 Comp Metabolic Nvx706 Osmo 279 mOsmo 05/31/2018 %Hba1C Wcb298 % HbA1c 84356-4 6.2 % 05/31/2018 %Hba1C Qqh641 Gluc Ave 131 mg/dL 05/31/2018 Cbc With Differential Ord2 WBC 5.90 K/ul 05/31/2018 Cbc With Differential Ord2 RBC 4.15 M/ul 05/31/2018 Cbc With Differential Ord2 HGB 12.3 g/dl 05/31/2018 Cbc With Differential Ord2 Neut% 60.2 % 05/31/2018 Cbc With Differential Ord2 HCT 38.5 % 05/31/2018 Cbc With Differential Ord2 MCV 92.8 fl 05/31/2018 Cbc With Differential Ord2 Lymph% 26.6 % 05/31/2018 Cbc With Differential Ord2 MCH 29.6 pg 05/31/2018 Cbc With Differential Ord2 [place]% 5.9 % 05/31/2018 Cbc With Differential Ord2 MCHC 31.9 pg 05/31/2018 Cbc With Differential Ord2 Eos% 6.3 % 05/31/2018 Cbc With Differential Ord2 PLT 253 K/ul 05/31/2018 Cbc With Differential Ord2 Baso% 1.0 % 05/31/2018 Cbc With Differential Ord2 RDW 13.2 % 05/31/2018 Cbc With Differential Ord2 Neut ABS# 3.55 K/ul 05/31/2018 Cbc With Differential Ord2 Lymph ABS# 1.57 K/ul 05/31/2018 Cbc With Differential Ord2 [place] ABS# 0.4 K/ul 05/31/2018 Cbc With Differential Ord2 Eos ABS# 0.4 K/ul 05/31/2018 Cbc With Differential Ord2 Baso ABS# 0.1 K/ul 05/31/2018 Lipid Ord30 CHOL 169 mg/dL 05/31/2018 Lipid Ord30 HDL 62.0 mg/dl 05/31/2018 Lipid Ord30 TRIG 103 mg/dL 05/31/2018 Lipid Ord30 LDL 86 mg/dL 05/31/2018 Lipid Ord30 C/HDL 2.7 Ratio 05/31/2018 Tsh Ord6 TSH (3rd IS) 1.72 uIU/mL 05/31/2018 %Hba1C Unf243 % HbA1c 29672-4 5.8 % 12/01/2017 %Hba1C Nko896 Gluc Ave 120 mg/dL 12/01/2017 Lipid Ord30 CHOL 156 mg/dL 12/01/2017 Lipid Ord30 HDL 73.0 mg/dl 12/01/2017 Lipid Ord30 TRIG 50 mg/dL 12/01/2017 Lipid Ord30 LDL 73 mg/dL 12/01/2017 Lipid Ord30 C/HDL 2.1 Ratio 12/01/2017 Comp Metabolic Kqj135 NA 140 mEq/L 12/01/2017 Comp Metabolic Zcj173 K 4.1 mEq/L 12/01/2017 Comp Metabolic Mww738 CL 105 mEq/L 12/01/2017 Comp Metabolic Tkf555 CO2 29.0 mEq/L 12/01/2017 Comp Metabolic Xir693 ANION GAP 10 12/01/2017 Comp Metabolic Bic707 GLUCOSE 91 mg/dL 12/01/2017 Comp Metabolic Ggy976 Creat 0.8 mg/dL 12/01/2017 Comp Metabolic Yvj303 eGFR 73 ml/min/1.73m2 12/01/2017 Comp Metabolic Hhc598 BUN 19 mg/dL 12/01/2017 Comp Metabolic Dun743 B/C Ratio 22.9 Ratio 12/01/2017 Comp Metabolic Wdy228 CALCIUM 9.3 mg/dL 12/01/2017 Comp Metabolic Fei015 ALK PHOS 73 U/L 12/01/2017 Comp Metabolic Rty547 AST(SGOT) 17 U/L 12/01/2017 Comp Metabolic Oun123 ALT(SGPT) 13 U/L 12/01/2017 Comp Metabolic Rup673 BILI T 0.8 mg/dL 12/01/2017 Comp Metabolic Cuu329 ALBUMIN 3.8 g/dL 12/01/2017 Comp Metabolic Rhi148 TPRO 6.4 g/dL 12/01/2017 Comp Metabolic Mvc325 GLOB 2.6 g/dL 12/01/2017 Comp Metabolic Rru190 A/G Ratio 1.5 Ratio 12/01/2017 Comp Metabolic Mjv033 Osmo 281 mOsmo 12/01/2017 Cbc With Differential Ord2 WBC 6.31 K/ul 12/01/2017 Cbc With Differential Ord2 RBC 4.18 M/ul 12/01/2017 Cbc With Differential Ord2 HGB 12.5 g/dl 12/01/2017 Cbc With Differential Ord2 HCT 37.9 % 12/01/2017 Cbc With Differential Ord2 Neut% 56.5 % 12/01/2017 Cbc With Differential Ord2 Lymph% 29.6 % 12/01/2017 Cbc With Differential Ord2 MCV 90.7 fl 12/01/2017 Cbc With Differential Ord2 [place]% 6.7 % 12/01/2017 Cbc With Differential Ord2 MCH 29.9 pg 12/01/2017 Cbc With Differential Ord2 MCHC 33.0 pg 12/01/2017 Cbc With Differential Ord2 Eos% 6.2 % 12/01/2017 Cbc With Differential Ord2 PLT 264 K/ul 12/01/2017 Cbc With Differential Ord2 Baso% 1.0 % 12/01/2017 Cbc With Differential Ord2 RDW 13.3 % 12/01/2017 Cbc With Differential Ord2 Neut ABS# 3.57 K/ul 12/01/2017 Cbc With Differential Ord2 Lymph ABS# 1.87 K/ul 12/01/2017 Cbc With Differential Ord2 [place] ABS# 0.4 K/ul 12/01/2017 Cbc With Differential Ord2 Eos ABS# 0.4 K/ul 12/01/2017 Cbc With Differential Ord2 Baso ABS# 0.1 K/ul 12/01/2017 Cbc With Differential Ord2 WBC 5.43 K/ul 06/01/2017 Cbc With Differential Ord2 RBC 4.11 M/ul 06/01/2017 Cbc With Differential Ord2 HGB 12.2 g/dl 06/01/2017 Cbc With Differential Ord2 Neut% 56.8 % 06/01/2017 Cbc With Differential Ord2 HCT 37.3 % 06/01/2017 Cbc With Differential Ord2 MCV 90.8 fl 06/01/2017 Cbc With Differential Ord2 Lymph% 27.3 % 06/01/2017 Cbc With Differential Ord2 MCH 29.7 pg 06/01/2017 Cbc With Differential Ord2 [place]% 7.6 % 06/01/2017 Cbc With Differential Ord2 MCHC 32.7 pg 06/01/2017 Cbc With Differential Ord2 Eos% 7.2 % 06/01/2017 Cbc With Differential Ord2 PLT 222 K/ul 06/01/2017 Cbc With Differential Ord2 Baso% 1.1 % 06/01/2017 Cbc With Differential Ord2 RDW 13.3 % 06/01/2017 Cbc With Differential Ord2 Neut ABS# 3.09 K/ul 06/01/2017 Cbc With Differential Ord2 Lymph ABS# 1.48 K/ul 06/01/2017 Cbc With Differential Ord2 [place] ABS# 0.4 K/ul 06/01/2017 Cbc With Differential Ord2 Eos ABS# 0.4 K/ul 06/01/2017 Cbc With Differential Ord2 Baso ABS# 0.1 K/ul 06/01/2017 Lipid Ord30 CHOL 161 mg/dL 06/01/2017 Lipid Ord30 HDL 58.0 mg/dl 06/01/2017 Lipid Ord30 TRIG 117 mg/dL 06/01/2017 Lipid Ord30 LDL 80 mg/dL 06/01/2017 Lipid Ord30 C/HDL 2.8 Ratio 06/01/2017 %Hba1C Ykw947 % HbA1c 17742-6 5.9 % 06/01/2017 %Hba1C Wyg858 Gluc Ave 123 mg/dL 06/01/2017 Comp Metabolic Cif626 NA 140 mEq/L 06/01/2017 Comp Metabolic Ydj614 K 3.9 mEq/L 06/01/2017 Comp Metabolic Ssj511 CL 105 mEq/L 06/01/2017 Comp Metabolic Ntj830 CO2 27.0 mEq/L 06/01/2017 Comp Metabolic Bax614 ANION GAP 12 06/01/2017 Comp Metabolic Jee385 GLUCOSE 103 mg/dL 06/01/2017 Comp Metabolic Mrw093 Creat 0.8 mg/dL 06/01/2017 Comp Metabolic Rsz033 eGFR 82 ml/min/1.73m2 06/01/2017 Comp Metabolic Pli245 BUN 16 mg/dL 06/01/2017 Comp Metabolic Blt070 B/C Ratio 21.3 Ratio 06/01/2017 Comp Metabolic Nrb506 CALCIUM 8.8 mg/dL 06/01/2017 Comp Metabolic Apa810 ALK PHOS 61 U/L 06/01/2017 Comp Metabolic Cgz472 AST(SGOT) 17 U/L 06/01/2017 Comp Metabolic Wpc109 ALT(SGPT) 14 U/L 06/01/2017 Comp Metabolic Hkr098 BILI T 0.8 mg/dL 06/01/2017 Comp Metabolic Jgw906 ALBUMIN 3.6 g/dL 06/01/2017 Comp Metabolic Bgu089 TPRO 6.1 g/dL 06/01/2017 Comp Metabolic Nek401 GLOB 2.5 g/dL 06/01/2017 Comp Metabolic Grl071 A/G Ratio 1.5 Ratio 06/01/2017 Comp Metabolic Hdz977 Osmo 281 mOsmo 06/01/2017 Lipid Ord30 CHOL 161 mg/dL 11/30/2016 Lipid Ord30 HDL 69.0 mg/dl 11/30/2016 Lipid Ord30 TRIG 82 mg/dL 11/30/2016 Lipid Ord30 LDL 76 mg/dL 11/30/2016 Lipid Ord30 C/HDL 2.3 Ratio 11/30/2016 %Hba1C Sfk445 % HbA1c 45135-6 5.8 % 11/30/2016 %Hba1C Vvh503 Gluc Ave 120 mg/dL 11/30/2016 Cbc With [...] 19.2 % 11/30/2016 Cbc With Differential Ord2 MCH 29.6 pg 11/30/2016 Cbc With Differential Ord2 [place]% 5.4 % 11/30/2016 Cbc With Differential Ord2 MCHC 32.5 pg 11/30/2016 Cbc With Differential Ord2 Eos% 7.9 % 11/30/2016 Cbc With Differential Ord2 Baso% 0.8 % 11/30/2016 Cbc With Differential Ord2 PLT 238 K/ul 11/30/2016 Cbc With Differential Ord2 RDW 13.2 % 11/30/2016 Cbc With Differential Ord2 Neut ABS# 4.82 K/ul 11/30/2016 Cbc With Differential Ord2 Lymph ABS# 1.39 K/ul 11/30/2016 Cbc With Differential Ord2 [place] ABS# 0.4 K/ul 11/30/2016 Cbc With Differential Ord2 Eos ABS# 0.6 K/ul 11/30/2016 Cbc With Differential Ord2 Baso ABS# 0.1 K/ul 11/30/2016 Comp Metabolic Gjn339 NA 139 mEq/L 11/30/2016 Comp Metabolic Vba694 K 4.1 mEq/L 11/30/2016 Comp Metabolic Duz235 CL 102 mEq/L 11/30/2016 Comp Metabolic Mzv694 CO2 30.0 mEq/L 11/30/2016 Comp Metabolic Eah065 ANION GAP 11 11/30/2016 Comp Metabolic Wma345 GLUCOSE 93 mg/dL 11/30/2016 Comp Metabolic Ojo978 Creat 0.9 mg/dL 11/30/2016 Comp Metabolic Vng195 eGFR 68 ml/min/1.73m2 11/30/2016 Comp Metabolic Obt364 BUN 15 mg/dL 11/30/2016 Comp Metabolic Pya635 B/C Ratio 17.0 Ratio 11/30/2016 Comp Metabolic Lxc580 CALCIUM 9.6 mg/dL 11/30/2016 Comp Metabolic Wxj643 ALK PHOS 61 U/L 11/30/2016 Comp Metabolic Bun182 AST(SGOT) 19 U/L 11/30/2016 Comp Metabolic Voi149 ALT(SGPT) 14 U/L 11/30/2016 Comp Metabolic Esu746 BILI T 0.7 mg/dL 11/30/2016 Comp Metabolic Tpm687 ALBUMIN 4.0 g/dL 11/30/2016 Comp Metabolic Wsb318 TPRO 6.6 g/dL 11/30/2016 Comp Metabolic Hcm474 GLOB 2.6 g/dL 11/30/2016 Comp Metabolic Snx144 A/G Ratio 1.5 Ratio 11/30/2016 Comp Metabolic Mvx831 Osmo 278 mOsmo 11/30/2016 Tsh Ord6 hTSH II 1.43 uIU/mL 07/27/2016 Lipid Ord30 CHOL 153 mg/dL 07/27/2016 Lipid Ord30 HDL 62.0 mg/dl 07/27/2016 Lipid Ord30 TRIG 82 mg/dL 07/27/2016 Lipid Ord30 LDL 75 mg/dL 07/27/2016 Lipid Ord30 C/HDL 2.5 Ratio 07/27/2016 Comp Metabolic Qjc100 NA 137 mEq/L 07/27/2016 Comp Metabolic Pft023 K 3.9 mEq/L 07/27/2016 Comp Metabolic Cul976 CL 103 mEq/L 07/27/2016 Comp Metabolic Wsx075 CO2 27.0 mEq/L 07/27/2016 Comp Metabolic Tnb652 ANION GAP 11 07/27/2016 Comp Metabolic Vxs773 GLUCOSE 107 mg/dL 07/27/2016 Comp Metabolic Ydv183 Creat 0.9 mg/dL 07/27/2016 Comp Metabolic Kmn743 eGFR 71 ml/min/1.73m2 07/27/2016 Comp Metabolic Nuc095 BUN 22 mg/dL 07/27/2016 Comp Metabolic Olp518 B/C Ratio 25.9 Ratio 07/27/2016 Comp Metabolic Gpg963 CALCIUM 9.2 mg/dL 07/27/2016 Comp Metabolic Abu444 ALK PHOS 66 U/L 07/27/2016 Comp Metabolic Aew062 AST(SGOT) 20 U/L 07/27/2016 Comp Metabolic Ziv656 ALT(SGPT) 15 U/L 07/27/2016 Comp Metabolic Mmh887 BILI T 0.6 mg/dL 07/27/2016 Comp Metabolic Ekk429 ALBUMIN 4.0 g/dL 07/27/2016 Comp Metabolic Vjk023 TPRO 6.5 g/dL 07/27/2016 Comp Metabolic Wkq398 GLOB 2.5 g/dL 07/27/2016 Comp Metabolic Nnc465 A/G Ratio 1.6 Ratio 07/27/2016 Comp Metabolic Jlj991 Osmo 278 mOsmo 07/27/2016 Cbc With Differential [...] 29.9 pg 07/27/2016 Cbc With Differential Ord2 [place]% 5.8 % 07/27/2016 Cbc With Differential Ord2 MCHC 32.7 pg 07/27/2016 Cbc With Differential Ord2 Eos% 7.2 % 07/27/2016 Cbc With Differential Ord2 PLT 254 K/ul 07/27/2016 Cbc With Differential Ord2 Baso% 0.6 % 07/27/2016 Cbc With Differential Ord2 RDW 13.1 % 07/27/2016 Cbc With Differential Ord2 Neut ABS# 3.61 K/ul 07/27/2016 Cbc With Differential Ord2 Lymph ABS# 1.78 K/ul 07/27/2016 Cbc With Differential Ord2 [place] ABS# 0.4 K/ul 07/27/2016 Cbc With Differential Ord2 Eos ABS# 0.5 K/ul 07/27/2016 Cbc With Differential Ord2 Baso ABS# 0.0 K/ul 07/27/2016 %Hba1C Fzk448 % HbA1c 95101-2 5.9 % 07/27/2016 %Hba1C Vog788 Gluc Ave 123 mg/dL 07/27/2016 Lipid Ord30 CHOL 143 mg/dL 03/30/2016 Lipid Ord30 HDL 50.0 mg/dl 03/30/2016 Lipid Ord30 TRIG 128 mg/dL 03/30/2016 Lipid Ord30 LDL 67 mg/dL 03/30/2016 Lipid Ord30 C/HDL 2.9 Ratio 03/30/2016 Tsh Ord6 hTSH II 1.00 uIU/mL 03/30/2016 %Hba1C Fwq072 % HbA1c 32964-1 6.3 % 03/30/2016 %Hba1C Zbl414 Gluc Ave 134 mg/dL 03/30/2016 Cbc With Differential Ord2 WBC 7.16 K/ul 03/30/2016 Cbc With Differential Ord2 RBC 4.36 M/ul 03/30/2016 Cbc With Differential Ord2 HGB 12.7 g/dl 03/30/2016 Cbc With Differential Ord2 Neut% 61.9 % 03/30/2016 Cbc With Differential Ord2 HCT 39.6 % 03/30/2016 Cbc With Differential Ord2 MCV 90.8 fl 03/30/2016 Cbc With Differential Ord2 Lymph% 25.4 % 03/30/2016 Cbc With Differential Ord2 MCH 29.1 pg 03/30/2016 Cbc With Differential Ord2 [place]% 6.3 % 03/30/2016 Cbc With Differential Ord2 MCHC 32.1 pg 03/30/2016 Cbc With Differential Ord2 Eos% 5.7 % 03/30/2016 Cbc With Differential Ord2 PLT 288 K/ul 03/30/2016 Cbc With Differential Ord2 Baso% 0.7 % 03/30/2016 Cbc With Differential Ord2 RDW 13.6 % 03/30/2016 Cbc With Differential Ord2 Neut ABS# 4.43 K/ul 03/30/2016 Cbc With Differential Ord2 Lymph ABS# 1.82 K/ul 03/30/2016 Cbc With Differential Ord2 [place] ABS# 0.5 K/ul 03/30/2016 Cbc With Differential Ord2 Eos ABS# 0.4 K/ul 03/30/2016 Cbc With Differential Ord2 Baso ABS# 0.1 K/ul 03/30/2016 Comp Metabolic Fko470 NA 137 mEq/L 03/30/2016 Comp Metabolic Uwi164 K 4.0 mEq/L 03/30/2016 Comp Metabolic Foq593 CL 102 mEq/L 03/30/2016 Comp Metabolic Tez737 CO2 29.0 mEq/L 03/30/2016 Comp Metabolic Pez273 ANION GAP 10 03/30/2016 Comp Metabolic Kor729 GLUCOSE 111 mg/dL 03/30/2016 Comp Metabolic Mxb516 Creat 1.0 mg/dL 03/30/2016 Comp Metabolic Sst281 eGFR 61 ml/min/1.73m2 03/30/2016 Comp Metabolic Krj943 BUN 19 mg/dL 03/30/2016 Comp Metabolic Vjv485 B/C Ratio 19.6 Ratio 03/30/2016 Comp Metabolic Lpc393 CALCIUM 9.4 mg/dL 03/30/2016 Comp Metabolic Lpm656 ALK PHOS 64 U/L 03/30/2016 Comp Metabolic Kuh768 AST(SGOT) 16 U/L 03/30/2016 Comp Metabolic Zvc799 ALT(SGPT) 15 U/L 03/30/2016 Comp Metabolic Tqn641 BILI T 0.7 mg/dL 03/30/2016 Comp Metabolic Ubk050 ALBUMIN 3.7 g/dL 03/30/2016 Comp Metabolic Hsf525 TPRO 6.3 g/dL 03/30/2016 Comp Metabolic Bqf876 GLOB 2.6 g/dL 03/30/2016 Comp Metabolic Sxb320 A/G Ratio 1.4 Ratio 03/30/2016 Comp Metabolic Rpa984 Osmo 277 mOsmo 03/30/2016 %Hba1C Kgd395 % HbA1c 77569-6 6.2 % 08/31/2015 %Hba1C Teq944 Gluc Ave 131 mg/dL 08/31/2015 Lipid Ord30 [...] Ord2 RDW 13.5 % 08/31/2015 Comp Metabolic Vbo071 NA 143 mEq/L 08/31/2015 Comp Metabolic Otk279 K 3.7 mEq/L 08/31/2015 Comp Metabolic Ysb479 CL 105 mEq/L 08/31/2015 Comp Metabolic Aoc536 CO2 24.0 mEq/L 08/31/2015 Comp Metabolic Oby692 ANION GAP 18 08/31/2015 Comp Metabolic Kvo030 GLUCOSE 110 mg/dL 08/31/2015 Comp Metabolic Owt123 Creat 0.8 mg/dL 08/31/2015 Comp Metabolic Grl815 eGFR 77 ml/min/1.73m2 08/31/2015 Comp Metabolic Fae719 BUN 14 mg/dL 08/31/2015 Comp Metabolic Vwd893 B/C Ratio 17.5 Ratio 08/31/2015 Comp Metabolic Cfo678 CALCIUM 8.8 mg/dL 08/31/2015 Comp Metabolic Rvf157 ALK PHOS 61 U/L 08/31/2015 Comp Metabolic Eqs252 AST(SGOT) 16 U/L 08/31/2015 Comp Metabolic Kjk857 ALT(SGPT) 14 U/L 08/31/2015 Comp Metabolic Rur449 BILI T 0.5 mg/dL 08/31/2015 Comp Metabolic Ksf411 ALBUMIN 3.7 g/dL 08/31/2015 Comp Metabolic Dch472 TPRO 6.1 g/dL 08/31/2015 Comp Metabolic Wqy130 GLOB 2.4 g/dL 08/31/2015 Comp Metabolic Gkf501 A/G Ratio 1.5 Ratio 08/31/2015 Comp Metabolic Zbt896 Osmo 286 mOsmo 08/31/2015 LIPID GRP HDL TEST 64 MG/DL 05/15/2014 LIPID GRP TRIG 95 MG/DL 05/15/2014 LIPID GRP TEST LDL 84 MG/DL 05/15/2014 LIPID GRP CHOL 167 MG/DL 05/15/2014 LIPID GRP RCHOL/HDL 2.61 RATIO 05/15/2014 LIPID GRP NON-HDL CH 103 MG/DL 05/15/2014 CBC [id number] WBC 5.9 10e9/L 05/15/2014 CBC [id number] RBC 4.08 10e12/L 05/15/2014 CBC [id number] HGB 12.1 g/dL 05/15/2014 CBC 9344515 HCT DET 37.0 % 05/15/2014 CBC [id number] MCV 90.7 fL 05/15/2014 CBC 7661062 MCH 29.7 pg 05/15/2014 CBC 3994969 MCHC 32.7 g/dL 05/15/2014 CBC [id number] PLT 243 10e9/L 05/15/2014 CBC 9537599 MPV 10.4 fL 05/15/2014 CBC [id number] MARVIN % 56.5 % 05/15/2014 CBC [id number] LY % 29.8 % 05/15/2014 CBC [id number] MON % 6.4 % 05/15/2014 CBC 0136162 EOS % 6.1 % 05/15/2014 CBC 9701793 BASO % 1.2 % 05/15/2014 CBC 9912733 RDW 12.9 % 05/15/2014 CBC 0367912 ABS MARVIN 3.33 10e9/L 05/15/2014 CBC 7422689 ABS LYMPH 1.76 10e9/L 05/15/2014 CBC [id number] ABS MONO 0.38 10e9/L 05/15/2014 CBC 5833378 ABS EOS 0.36 10e9/L 05/15/2014 CBC 6427804 ABS BASO 0.07 10e9/L 05/15/2014 CBC 3088543 RDW-SD 42.1 fL 05/15/2014 A1C HPLC 4361361 A1C HPLC 63467-1 6.0 % 05/15/2014 TSH 9615288 TSH 1.749 uIU/ML 05/15/2014 CHEM 14 5581591 AST 21 U/L 05/15/2014 CHEM 14 0732217 ALT 16 IU/L 05/15/2014 CHEM 14 3873757 BUN 21 MG/DL 05/15/2014 CHEM 14 9569102 ALBUMIN 3.9 GM/DL 05/15/2014 CHEM 14 7954802 CHLORIDE 106 MMOL/L 05/15/2014 CHEM 14 7868438 BILI TOT 0.6 MG/DL 05/15/2014 CHEM 14 6500909 ALK PHOS 67 U/L 05/15/2014 CHEM 14 7233310 SODIUM 137 MMOL/L 05/15/2014 CHEM 14 2241513 CREATININE 1.00 MG/DL 05/15/2014 CHEM 14 1503996 CALCIUM 9.0 MG/DL 05/15/2014 CHEM 14 3780609 POTASSIUM 3.9 MMOL/L 05/15/2014 CHEM 14 6162282 PROT TOT 6.4 GM/DL 05/15/2014 CHEM 14 9114764 GLUCOSE 119 MG/DL 05/15/2014 CHEM 14 9519520 BICARB 24 MMOL/L 05/15/2014 CHEM 14 8490825 ANION GAP 7 MEQ/L 05/15/2014 GFR CALC 2808352 GFR AA >60 ML/MIN 05/15/2014 GFR CALC 0780751 GFR NON-AA 56.0L ML/MIN 05/15/2014 Review of [...] lips 07/24/2017 None Full Exam - General 1994 Ears/Nose/Throat lips/teeth/gingiva Overall: normal dentition 07/24/2017 None Full Exam - General 1994 Ears/Nose/Throat oral cavity/pharynx/larynx Overall: hypopharynx benign 07/24/2017 None Full Exam - General 1994 Ears/Nose/Throat oral cavity/pharynx/larynx Overall: no masses 07/24/2017 None Full Exam - General 1994 [...] toes 02/19/2015 None Full Exam - General 1995 Constitutional general appearance Development: well developed 12/18/2014 [...] Procedure Codes Date THER/PROPH/DIAG INJ SC/IM CPT-4: 40627 11/20/2017 TRIAMCINOLONE ACET INJ NOS CPT-4: J3301 11/20/2017 IIV4 VACC NO PRSV 3 YRS+ IM CPT-4: 82618 07/24/2017 FLU VAC NO PRSV 4 JAIME 3 YRS+ CPT-4: 48161 07/24/2017 ADMIN INFLUENZA VIRUS VAC CPT-4: G0008 07/24/2017 IIV4 VACC NO PRSV 3 YRS+ IM CPT-4: 02297 07/24/2017 DESTRUCT PREMALG LES 2-14 CPT-4: 96005 08/03/2016 IMMUNIZATION ADMIN CPT -4: 25338 07/27/2016 FLU VACC 4 JAIME 3 YRS PLUS IM Formatting Model/CDA Sections, Assigned to/Aimee Weinberg CT: [id number] CPT-4: 68639Kctogsk 07/27/2016 INITIAL PREVENTIVE EXAM CPT-4: G0402 12/31/2015 DRAIN/INJECT JOINT/BURSA CPT-4: 93420 12/18/2014 TRIAMCINOLONE ACET INJ NOS CPT-4: J3301 12/18/2014 ROUTINE VENIPUNCTURE CPT-4: 91683 05/15/2014 Vital Signs Date Vital 06/07/2018 Blood Pressure 1: 132/74 Code : 8480-6 BMI: 40.0 Code : 06251-8 Heart Rate 1 : 98 bpm Height: 5'4" SpO2: 98% Weight: 233 lbs 12/07/2017 Blood Pressure 1: 126/84 Code : 8480-6 BMI: 38.6 Code : 58164-3 Heart Rate 1 : 77 bpm Height: 5'4" SpO2: 96% Weight: 225 lbs 11/20/2017 Blood Pressure 1: 142/80 Code : 8480-6 BMI: 37.6 Code : 99255-6 Heart Rate 1 : 64 bpm Height: 5'4" SpO2: 98% Temperature: 37.1 (C) / 98.7 (F) Weight: 219 lbs 07/24/2017 Blood Pressure 1: 118/74 Code : 8480-6 BMI: 37.4 Code : 28373-8 Heart Rate 1 : 80 bpm Height: 5'4" SpO2: 97% Weight: 218 lbs 06/08/2017 Blood Pressure 1: 120/72 Code : 8480-6 BMI: 37.0 Code : 93478-3 Heart Rate 1 : 77 bpm Height: 5'4" SpO2: 98% Weight: 215 lbs 8 oz 12/07/2016 Blood Pressure 1: 132/76 Code : 8480-6 BMI: 36.9 Code : 92825-1 Heart Rate 1 : 78 bpm Height: 5'4" SpO2: 97% Weight: 215 lbs 11/30/2016 Blood Pressure 1: 136/72 Code : 8480-6 BMI: 37.1 Code : 21241-7 Heart Rate 1 : 78 bpm Height: 5'4" SpO2: 97% Temperature: 36.7 (C) / 98.1 (F) Weight: 216 lbs 11/03/2016 Blood Pressure 1: 130/86 Code : 8480-6 Heart Rate 1: 75 bpm Height: SpO2: 98% Weight: 08/03/2016 Blood Pressure 1: 120/76 Code : 8480-6 BMI: 37.4 Code : 89293-0 Heart Rate 1 : 72 bpm Height: 5'4" SpO2: 98% Weight: 218 lbs 04/05/2016 Blood Pressure 1: 110/70 Code : 8480-6 BMI: 38.9 Code : 02937-1 Heart Rate 1 : 87 bpm Height: 5'4" SpO2: 97% Weight: 226 lbs 8 oz 12/31/2015 Blood Pressure 1: 140/78 Code : 8480-6 BMI: 44.1 Code : 53537-9 Heart Rate 1 : 74 bpm Height: 5'4" SpO2: 97% Waist Measure (cm): 117 cm Weight: 257 lbs 11/04/2015 Blood Pressure 1: 148/62 Code : 8480-6 BMI: 44.1 Code : 99728-6 Heart Rate 1 : 67 bpm Height: 5'3" SpO2: 96% Weight: 249 lbs 09/08/2015 Blood Pressure 1: 140/80 Code : 8480-6 BMI: 44.3 Code : 04646-4 Heart Rate 1 : 88 bpm Height: 5'3" Weight: 250 lbs 02/19/2015 Blood Pressure 1: 132/84 Code : 8480-6 BMI: 45.5 Code : 91886-5 Heart Rate 1 : 64 bpm Height: 5'3" SpO2: 96% Weight: 257 lbs 12/18/2014 Blood Pressure 1: 136/80 Code : 8480-6 BMI: 45.3 Code : 89426-4 Heart Rate 1 : 80 bpm Height: 5'3" Weight: 256 lbs 12/10/2014 Blood Pressure 1: 140/78 Code : 8480-6 BMI: 45.3 Code : 10295-5 Heart Rate 1 : 74 bpm Height: 5'3" Weight: 256 lbs 09/05/2014 Blood Pressure 1: 158/90 Code : 8480-6 BMI: 45.0 Code : 13250-6 Heart Rate 1 : 72 bpm Height: 5'3" Weight: 254 lbs 08/01/2014 Blood Pressure 1: 138/70 Code : 8480-6 BMI: 44.6 Code : 48982-7 Heart Rate 1 : 70 bpm Height: 5'3" SpO2: 99% Weight: 252 lbs 05/07/2014 Blood Pressure 1: 136/78 Code : 8480-6 BMI: 43.4 Code : 34614-9 Heart Rate 1 : 75 bpm Height: [...] 08/01/2014 None well woman exam (40-65 years) Breast/Manager Lsw Complaints urinary urgency 08/01/2014 "nothing different than before" takes vesicare well woman exam (40-65 years) Breast/Manager Lsw Complaints urinary incontinence 08/01/2014 None well woman exam (40-65 years) Breast/Manager Lsw Complaints pelvic pressure 08/01/2014 None well woman exam (40-65 years) Breast/Manager Lsw Complaints breast pain 08/01/2014 None well woman exam (40-65 years) Breast/Manager Lsw Complaints breast mass 08/01/2014 None well woman exam (40-65 years) Breast/Manager Lsw Complaints menopausal symptoms 08/01/2014 None well woman exam (40-65 years) Breast/Manager Lsw Complaints perimenopausal symptoms 08/01/2014 None well woman exam (40-65 years) Menstrual History last menstrual period __-__-__ 08/01/2014 hysterectomy approximately 2004/2005 well woman exam (40-65 years) Cardiovascular Risk [...] data Encounters Encounter Performer Location Codes Date ( EST. 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 PATIENT, LEVEL IV Diagnosis: Essential (primary) hypertension[ICD10: I10] Diagnosis: Type 2 diabetes mellitus without complications[ICD10: E11.9] Diagnosis: Mixed hyperlipidemia[ICD10: E78.2] [facility] CPT-4: 48658 12/07/2017 [id number] EST. PATIENT, LEVEL IV Diagnosis: Other acute sinusitis[ICD10: J01.80] Diagnosis: Other allergic rhinitis[ICD10: J30.89] [facility] CPT-4: 21724 11/20/2017 ([id number]) 65398 EST. 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 PATIENT, LEVEL IV Diagnosis: Type 2 diabetes mellitus without complications[ICD10: E11.9] Diagnosis: Mixed hyperlipidemia[ICD10: E78.2] Diagnosis: Essential (primary) hypertension[ICD10: I10] Diagnosis: Other obesity due to excess calories[ICD10: E66.09] Diagnosis: Encounter for screening mammogram for malignant neoplasm of breast[ ICD10: Z12.31] Inez Morris MD, [facility] CPT-4: 07222 06/08/2017 ([id number]) 82205 EST. PATIENT, LEVEL IV Diagnosis: Essential (primary) hypertension[ICD10: I10] Diagnosis: Mixed incontinence[ICD10: N39.46] Diagnosis: Type 2 diabetes mellitus without complications[ICD10: E11.9] Diagnosis: Mixed hyperlipidemia[ICD10: E78.2] Inez Morris MD, [facility] CPT-4: 91966 12/07/2016 [id number] EST. PATIENT, LEVEL IV Diagnosis: Mixed hyperlipidemia[ICD10: E78.2] Diagnosis: Other acute sinusitis[ICD10: J01.80] Qian Morris MD, [facility] CPT-4: 07922 11/30/2016 73962 EST. PATIENT, LEVEL III Diagnosis: Other allergic rhinitis[ICD10: J30.89] Diagnosis: Acute nasopharyngitis [common cold][ICD10: J00] Qian Morris MD, [facility] CPT-4: 79741 11/03/2016 ([id number]) 80674 EST. PATIENT, LEVEL IV Diagnosis: Mixed hyperlipidemia[ICD10: E78.2] Diagnosis: Type 2 diabetes mellitus without complications[ICD10: E11.9] Diagnosis: Actinic keratosis[ICD10: L57.0] Diagnosis: Inflamed seborrheic keratosis[ICD10: L82.0] Inez Morris MD, [facility] CPT-4: 51741 08/03/2016 ([id number]) 17239 EST. PATIENT, LEVEL IV Diagnosis: Type 2 diabetes mellitus without complications[ICD10: E11.9] Diagnosis: Essential (primary) hypertension[ICD10: I10] Diagnosis: Other obesity due to excess calories[ICD10: E66.09] Inez Morris MD, [facility] CPT-4: 29054 04/05/2016 57915 EST. PATIENT, LEVEL III Diagnosis: Rash and other nonspecific skin eruption[ICD10: R21] Qian Morris MD, [facility] CPT-4: 27778 11/04/2015 ([id number]) PREV VISIT EST AGE 40-64 Diagnosis: Encounter for gynecological examination (general) (routine) without abnormal findings[ICD10: Z01.419] Inez Morris MD, [facility] CPT-4: 64672 09/08/2015 ([id number]) 00959 EST. PATIENT, LEVEL II Diagnosis: Right foot pain[ICD9: 729.5] Shiloh Morris MD, [facility] CPT-4: 80039 02/19/2015 ([id number]) 39412 EST. PATIENT, LEVEL IV Diagnosis: Plantar fascia syndrome[ICD9: 728.71] Diagnosis: Heel pain[ICD9: 729.5] Inez Morris MD [facility] CPT-4: 32977 12/10/2014 ([id number]) 06170 EST. PATIENT, LEVEL IV Diagnosis: ESSENTIAL HYPERTENSION[ICD9: 401.9] Diagnosis: Depressive disorder[ICD9: 311] Inez Morris MD, [facility] CPT- 4: 32978 09/05/2014 ([id number]) PREV VISIT EST AGE 40-64 Diagnosis: ROUTINE GYNE EXAM[ICD9: V72.31] [facility] CPT- 4: 46943 08/01/2014 ([id number]) OFFICE VISIT, NEW - LEVEL 4 Diagnosis: ESSENTIAL HYPERTENSION[ICD9: 401.9] Diagnosis: OBESITY[ICD9: 278.00] Diagnosis: Urinary urgency[ICD9: 788.63] Diagnosis: Depressive disorder[ICD9: 311] Diagnosis: HYPERLIPIDEMIA[ICD9: 272.4] Diagnosis: Myalgia and myositis[ICD9: 729.1] [facility] CPT-4: 18118 05/07/2014 Plan of Care Planned Activity Notes [...] release melatonin - 3 - 10mg. 06/07/2018 Patient Education: Patient Medication Summary Completed 06/07/2018 Appointment: Inez Morris WPtel: [address] [place], [place] [id number] (15 min) Moderate 06/05/2018 Visit Plan: Diabetes [...] medications. 12/07/2017 Appointment: Inez Morris WPtel: [phone] [facility] (15 min) Moderate 12/07/2017 Patient Education: Patient [...] allergy spray. 11/20/2017 Appointment: Qian Burgos WPtel: [phone] [facility] (15 min) Moderate 11/20/2017 Patient Education: Patient [...] Recommended patient to take paperwork to her reimbursement specialist for diabetic shoes. 07/24/2017 Appointment: Inez Morris WPtel: [facility] (15 min) Moderate 07/24/2017 Patient Education: Patient [...] of carbohydrates. 06/08/2017 Appointment: Inez Morris WPtel: [facility] [place] (15 min) Moderate 06/08/2017 Patient Education: Patient [...] pharmacy 12/07/2016 Appointment: Inez Morris [facility]Ptel[phone] [facility] [place] [place] (15 min) Moderate 12/07/2016 Patient Education: Patient Medication Summary Completed 12/07/2016 Patient Education: Obesity Completed 12/07/2016 Care Plan: Referral Order SNOMED-CT : [id number] Pending 12/07/2016 Visit Plan: Sinusitis - Pt [...] patient's pharmacy. 11/30/2016 [phone] [place] (10 min) Simple 11/30/2016 Patient Education: Patient [...] allergy spray. 11/03/2016 App[facility]ment: [phone] [place] (10 min) Simple 11/03/2016 Patient Education: Patient [...] acute concerns. 08/03/2016 Appointment: Inez Morris WPtel: [phone] [facility] (15 min) Moderate 08/03/2016 Patient Education: Patient Medication Summary Completed 08/03/2016 Patient Education: Obesity Completed 08/03/2016 Appointment: Injection 07/27/2016 Patient Education: Patient Medication Summary Completed [...] dietary changes. 04/05/2016 Appointment: Inez Morris WPtel: [phone] [facility] (15 min) Moderate 04/05/2016 Patient Education: Patient [...] & TRAIN 1 PT Ordered 2015 Appointment: [facility] - Welcome to Medicare visit 12/29/2015 Appointment: [facility] - Welcome to Medicare visit 11/24/2015 [...] or prn. 09/08/2015 Appointment: Inez Morris WPtel: [address] [place], [place] [id number] Well Woman 09/08/2015 Patient Education: Patient Medication [...] of injection. 12/18/2014 Appointment: In[facility] Morris [facility]el[phone] [facility] Follow up 12/18/2014 Patient Education: Patient Medication [...] this patient. 09/05/2014 Appointment: Inez Morris [facility]Ptel: [phone] [facility] Follow up 09/05/2014 Patient Education: Patient Medication [...] or prn. 08/01/2014 Appointment: Inez Morris WPtel: [phone] [facility] Well Woman 08/01/2014 Patient Education: Patient Medication Summary Completed 08/01/2014 Care Plan: PAP Pending 08/01/2014 Appointment: Inez Morris WPtel[phone] [facility] Follow up 06/26/2014 Appointment: Inez Morris WPtel: [phone] [facility] Lab Draw 05/15/2014 Patient Education: Patient Medication [...] consider counseling. 05/07/2014 Appointment: Inez Morris [facility]Ptel: [phone] [facility] New Patient 05/07/2014 Patient Education: Patient Medication Summary Completed 05/07/2014 Appointment: Inez Morris [facility]Ptel[phone] [facility] New Patient 04/30/2014 Appointment: Inez Morris WPtel: [phone] [facility] New Patient 04/28/2014 Referral: Dr Packer Referral Appointment Requested Instructions Comment . Hypertension - well controlled - continue [...] drainage, or any other acute concerns. . URI - Pt advised to increase [...] in the nasal steroid allergy spray. . Welcome to Medicare Exam - today [...] to maintain independece in the home. . Diabetes Mellitus - controlled - per [...] Recommended patient to take paperwork to her reimbursement specialist for diabetic shoes. . Heel Injection - Pt was given post - injection instructions. The pt has been advised to use anti-inflammatories post injection today, ice to the injected site, call if redness, warmth, or increased pain occurs at the site of injection. . Hypertension - uncontrolled - the patient's [...] has been appropriately prescribed for this patient. retinol - the ingredient to look for [...] Urge incontinence - RX sent to pharmacy Pro[facility]otic [facility] [employer] [employer], or generic while on the antibiotic. Sinusitis [...] any worse. RX sent to patient's pharmacy. . 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 . Diabetes Mellitus - controlled - per [...] continue with exercise and dietary changes. . Right foot pain-xray right foot and proceed as indicated . Plantar fasciitis- pt was educated that this is an inflammatory process, need to stretch the foot and reduce inflammation until the pain is improved. Pt advised to purchase shoes that have better arch support. . Well Adult Female - exam completed. Pap and breast exam completed. Pt will be called with results of her testing. She was advised to continue with yearly annual exams. Safe sex practices discussed during office visit today. Call if any abnormal gynecologic issues during the next year, otherwise, RTC yearly or prn. . Hypertension - well controlled - continue [...] to increase activity, decrease intake of carbohydrates. decrease the lipitor to two days a [...] celexa - advised pt to consider counseling. zantac 150mg over the counter - twice [...] in the nasal steroid allergy spray. . Well Adult Female - exam completed. Pap and breast exam completed. Pt will be called with results of her testing. She was advised to continue with yearly annual exams. Safe sex practices discussed during office visit today. Call if any abnormal gynecologic issues during the next year, otherwise, RTC yearly or prn. extended release melatonin - 3 - 10mg [...] release melatonin - 3 - 10mg. . Diabetes Mellitus - controlled - per [...]
--- OUTSIDE RECORDS SUMMARY | 2018-09-05 22:43 | XMS REPORT | CCD ---
Author Author Inez Morris Organization Inez Morris MD, [facility] Address [address] [place] [address] Phone Care Team Providers Care World History Teacher Name Role Phone Inez Morris PP Unavailable CCM Unavailable Summary Purpose Interface Exchange Insurance Providers Payer name Policy type / Coverage type Covered democrat ID Effective Begin Date Effective End Date WPS Medicare Part B Medicare Part B [id number] 2015 Unknown AARP Medicare Part B [id number] 2015 Unknown Family history Mother Diagnosis Age [...] Unknown Retired 05/07/[address]: [id number] Never smoker 05/07/[address]: [id number] Never drinks alcohol 05/07/2014 Has the patient [...] ICD-9: 401.1 ICD-10: I10 Active 12/07/2016 Unknown Mixed hyperlipidemia ICD-9: 272.2 ICD-10: E78.2 Active 08/02/2016 Unknown Type 2 diabetes mellitus without complications ICD-9: 250.00 ICD-10: E11.9 Active 05/15/2014 Unknown Other acute sinusitis ICD-9: 461.8 ICD-10: J01.80 Active 11/30/2016 Unknown Other allergic rhinitis ICD-9: 477.8 ICD-10: J30.89 Active 11/02/2016 Unknown Encounter for immunization ICD-9: V04.81 ICD-10: Z23 Active 07/26/2016 Unknown Type 2 diabetes mellitus with diabetic autonomic (poly) neuropathy ICD-9: 250.60 ICD-10: E11.43 Active 07/24/2017 Unknown Encounter for screening mammogram for malignant neoplasm of breast ICD-9: V76.12 ICD-10: Z12.31 Active 06/08/2017 Unknown Mixed hyperlipidemia ICD-9: 272.4 ICD-10: E78.2 Active 07/26/2016 Unknown Other obesity due to excess calories ICD-9: 278.00 ICD-10: E66.09 Active 05/07/2014 Unknown Mixed incontinence ICD -9: 788.33 ICD-10: [...] hypertension ICD-9: 401.1 ICD-10: I10 12/07/2016 Active Mixed hyperlipidemia ICD-9: 272.2 ICD-10: E78.2 08/02/2016 Active Type 2 diabetes mellitus without complications ICD-9: 250.00 ICD-10: E11.9 05/15/2014 Active Other acute sinusitis ICD-9: 461.8 ICD-10: J01.80 11/30/2016 Active Other allergic rhinitis ICD-9: 477.8 ICD-10: J30.89 11/02/2016 Active Encounter for immunization ICD-9: V04.81 ICD-10: Z23 07/26/2016 Active Type 2 diabetes mellitus with diabetic autonomic (poly) neuropathy ICD-9: 250.60 ICD-10: E11.43 07/24/2017 Active Encounter for screening mammogram for malignant neoplasm of breast ICD-9: V76.12 ICD-10: Z12.31 06/08/2017 Active Mixed hyperlipidemia ICD-9: 272.4 ICD-10: E78.2 07/26/2016 Active Other obesity due to excess calories ICD-9: 278.00 ICD-10: E66.09 05/07/2014 Active Mixed incontinence ICD -9: 788.33 ICD-10: [...] Start Date Stop Date Status Fill Instructions metformin 500 mg tablet RxNorm: 074718 TAKE 1/2 TABLET TWICE DAILY 04/12/2018 04/06/2019 Active oxybutynin chloride ER 10 mg tablet,extended release 24 hr RxNorm: 050502 1 Tablet (s) PO daily 03/01/2018 02/23/2019 Active citalopram 20 mg tablet RxNorm: 552517 TAKE 1 TABLET EVERY DAY 01/15/2018 01/09/2019 Active atorvastatin 10 mg tablet RxNorm: 548554 TAKE 1/2 TABLET DAILY 01/03/2018 12/28/2018 Active oxybutynin chloride ER 10 mg tablet,extended release 24 hr RxNorm: 113660 1 Tablet (s) PO daily 12/07/2017 02/28/2018 Inactive Kenalog 40 mg/mL suspension for injection RxNorm: 4637410 1 Milliliter(s) Inj 11/20/2017 11/20/2017 Inactive Keflex 500 mg capsule RxNorm: 457918 1 Capsule(s) PO TID 201711/29/2017 Inactive losartan 25 mg tablet RxNorm: 382769 TAKE 1 TABLET EVERY DAY 11/07/2018 Active Valtrex 1 gram tablet RxNorm: 217384 1 Tablet(s) PO daily as needed 09/20/2017 No Stop Date Active Valtrex 1 gram tablet RxNorm: 084835 1 Tablet(s) PO daily as needed 06/28/2017 09/19/2017 Inactive Transderm-Scop 1.5 mg transdermal patch (1 mg over 3 days) RxNorm: 328361 1 Patch TD Q72H 06/08/2017 06/20/2017 Inactive nystatin 100,000 unit/gram topical cream RxNorm: 385721 1 Gram(s) TOP TID 06/08/2017 06/27/2017 Inactive alprazolam 0.25 mg tablet RxNorm: 567424 1 Tablet(s) PO TID as needed 04/21/2017 07/19/2017 Inactive metformin 500 mg tablet RxNorm: 210953 1/2 Tablet(s) PO BID 09/201701/19/2018 Inactive estradiol 0.5 mg tablet RxNorm: 329357 1 Tablet(s) PO BID 01/2001/14/2018 Inactive metformin 500 mg tablet RxNorm: 891347 1/2 Tablet(s) PO BID 04/201701/24/2017 Inactive estradiol 0.5 mg tablet RxNorm: 033804 1 Tablet(s) PO BID 01/1601/19/2017 Inactive metformin 500 mg tablet RxNorm: 616797 1/2 Tablet(s) PO BID 12/201601/19/2017 Inactive atorvastatin 10 mg tablet RxNorm: 030447 1/2 Tablet(s) PO daily 12/07/2016 12/01/2017 Inactive losartan 25 mg tablet RxNorm: 753482 1 Tablet(s) PO daily 201609/02/2017 Inactive trospium 20 mg tablet RxNorm: 708670 1 Tablet(s) PO BID 201612/06/2017 Inactive citalopram 20 mg tablet RxNorm: 256210 1 Tablet(s) PO daily 12/01/2017 Inactive Keflex 500 mg capsule RxNorm: 626041 1 Capsule(s) PO TID 201612/09/2016 Inactive trospium 20 mg tablet RxNorm: 951298 1 Tablet(s) PO BID 201612/06/2016 Inactive amoxicillin 500 mg capsule RxNorm: 719439 1 Capsule(s) PO TID 11/04/2016 11/13/2016 Inactive amoxicillin 500 mg capsule RxNorm: 416459 1 Capsule(s) PO TID 11/04/2016 11/03/2016 Inactive Flonase Allergy Relief 50 mcg/actuation nasal spray, suspension RxNorm: 6592425 1 Moro NASAL BID 11/03/2016 No Stop Date Active Myrbetriq 50 mg tablet,extended release RxNorm: 8247311 1 Tablet(s) PO daily 11/03/2016 12/06/2017 Inactive Zyrtec 10 mg tablet RxNorm: 6958070 1 Tablet(s) PO daily 11/0312/02/2016 Inactive estradiol 0.5 mg tablet RxNorm: 003600 1 Tablet(s) PO BID 08/0301/15/2017 Inactive Transderm-Scop 1.5 mg transdermal patch (1 mg over 3 days) RxNorm: 856993 1 Patch TD Q72H 08/03/2016 09/01/2016 Inactive trospium 20 mg tablet RxNorm: 773466 1 Tablet(s) PO BID 201511/21/2016 Inactive trospium 20 mg tablet RxNorm: 466718 1 Tablet(s) PO BID 201512/06/2017 Inactive Valtrex 1 gram tablet RxNorm: 553064 1 Tablet(s) PO TID as needed 05/04/2016 05/07/2016 Inactive Valtrex 1 gram tablet RxNorm: 464702 1 Tablet(s) PO TID as needed 05/04/2016 05/03/2016 Inactive lisinopril 10 mg tablet RxNorm: 672587 1 Tablet(s) PO daily 12/06/2016 Inactive estradiol 1 mg tablet RxNorm: 349520 Tablet(s) 1 TABLET(S) PO DAILY 04/29/2016 08/02/2016 Inactive metformin 500 mg tablet RxNorm: 647793 1/2 Tablet(s) PO BID 01/201601/15/2017 Inactive estradiol 1 mg tablet RxNorm: 298678 Tablet(s) 1 TABLET(S) PO DAILY 02/17/2016 04/28/2016 Inactive citalopram 20 mg tablet RxNorm: 673077 1 Tablet(s) PO daily 12/06/2016 Inactive atorvastatin 10 mg tablet RxNorm: 444022 1/2 Tablet(s) PO daily 01/12/2016 12/06/2016 Inactive atorvastatin 10 mg tablet RxNorm: 295627 1/2 Tablet(s) PO daily 01/05/2016 01/11/2016 Inactive lisinopril 10 mg tablet RxNorm: 696986 2 Tablet(s) PO daily 04/28/2016 Inactive citalopram 20 mg tablet RxNorm: 350478 1 Tablet(s) PO daily 01/11/2016 Inactive betamethasone valerate 0.1 % topical cream RxNorm: 592037 1 Application TOP TID as needed 12/31/2015 No Stop Date Active prednisone 20 mg tablet RxNorm: 310779 3 Tablet(s) PO daily 11/08/2015 Inactive estradiol 1 mg tablet RxNorm: 204922 1 TABLET(S) PO DAILY 201402/16/2016 Inactive aspirin 81 mg capsule,delayed release RxNorm: 129458 1 Capsule(s) PO daily 09/08/2015 09/01/2016 Inactive naproxen 500 mg tablet RxNorm: 109359 1 Tablet(s) PO BID as needed for pain 09/08/2015 09/01/2016 Inactive nystatin 100,000 unit/gram topical cream RxNorm: 047225 1 Gram(s) TOP TID 09/08/2015 09/27/2015 Inactive naproxen 500 mg tablet RxNorm: 940910 1 Tablet(s) PO BID as needed for pain 09/08/2015 09/07/2015 Inactive alprazolam 0.25 mg tablet RxNorm: 948574 1 Tablet(s) PO TID as needed 08/17/2015 04/20/2017 Inactive atorvastatin 10 mg tablet RxNorm: 405555 1/2 Tablet(s) PO daily 05/07/2015 01/04/2016 Inactive estradiol 1 mg tablet RxNorm: 892212 1 Tablet(s) PO daily 201408/12/2015 Inactive metformin 500 mg tablet RxNorm: 081695 1/2 Tablet(s) PO BID 11/201402/16/2016 Inactive citalopram 20 mg tablet RxNorm: 038795 1 Tablet(s) PO daily 11/201401/04/2016 Inactive metformin 500 mg tablet RxNorm: 177926 1/2 Tablet(s) PO BID 07/201501/14/2015 Inactive metformin 500 mg tablet RxNorm: 589763 1/2 Tablet(s) PO QHS x1 week then increase to 1/2 BID 12/23/2014 04/11/2018 Inactive metformin 500 mg tablet RxNorm: 482621 1/2 Tablet(s) PO QHS x1 week then 1/2 tab po BID there after 12/23/2014 12/22/2014 Inactive metformin 500 mg tablet RxNorm: 912372 1/2 Tablet(s) PO BID 07/201512/22/2014 Inactive Kenalog 40 mg/mL suspension for injection RxNorm: 5318769 1 Milliliter(s) Inj 12/19/2014 12/19/2014 Inactive lisinopril 10 mg tablet RxNorm: 619410 1 Tablet(s) PO daily 01/04/2016 Inactive alprazolam 0.25 mg tablet RxNorm: 015113 1 Tablet(s) PO TID as needed 12/10/2014 08/16/2015 Inactive trospium 20 mg tablet RxNorm: 008900 1 Tablet(s) PO BID START WITH DAILY, AND INCREASE TO BID IF NEEDED FOR TX OF INCONTINENCE 12/10/2014 07/26/2016 Inactive trospium 20 mg tablet RxNorm: 770735 1 Tablet(s) PO BID START WITH DAILY, AND INCREASE TO BID IF NEEDED FOR TX OF INCONTINENCE 11/28/2014 12/09/2014 Inactive trospium 20 mg tablet RxNorm: 222864 1 Tablet(s) PO BID START WITH DAILY, AND INCREASE TO BID IF NEEDED FOR TX OF INCONTINENCE 11/28/2014 11/27/2014 Inactive lisinopril 10 mg tablet RxNorm: 630184 TAKE ONE TABLET BY MOUTH DAILY 11/17/2014 12/16/2014 Inactive Vesicare 10 mg tablet RxNorm: 597126 1 Tablet(s) PO daily 201411/27/2014 Inactive lisinopril 10 mg tablet RxNorm: 638922 1 Tablet(s) PO daily 12/09/2014 Inactive lisinopril 10 mg tablet RxNorm: 538833 1 Tablet(s) PO daily 10/04/2014 Inactive citalopram 20 mg tablet RxNorm: 433723 1 Tablet(s) PO daily 01/14/2015 Inactive Vesicare 10 mg tablet RxNorm: 462664 1 Tablet(s) PO daily 201311/16/2014 Inactive lisinopril 10 mg tablet RxNorm: 986781 1/2 Tablet(s) PO daily 05/07/2014 06/05/2014 Inactive Belviq 10 mg tablet RxNorm: 0277031 1 Tablet(s) PO BID 201309/04/2014 Inactive atorvastatin 10 mg tablet RxNorm: 704115 1/2 Tablet(s) PO daily 05/07/2014 06/05/2014 Inactive citalopram 20 mg tablet RxNorm: 143233 1/2 Tablet(s) PO daily 05/07/2014 06/05/2014 Inactive estradiol 1 mg tablet RxNorm: 186499 1 Tablet(s) PO daily 201306/05/2014 Inactive Vitamin D3 1,000 unit capsule RxNorm: 823214 Capsule(s) PO daily No Start Date Active Centrum Silver tablet RxNorm: 1 Tablet(s) PO daily No Start Date Active Caltrate 600 + D oral RxNorm: 003225 oral No Start Date Active naproxen 500 mg tablet RxNorm: 665486 1 Tablet(s) PO BID as needed No Start Date 05/06/2014 Inactive Vesicare 10 mg tablet RxNorm: 256538 1 Tablet(s) PO daily No Start Date 07/20/2014 Inactive alprazolam 0.25 mg tablet RxNorm: 512258 1 Tablet(s) PO TID as needed No Start Date 12/09/2014 Inactive Medication Administered Medication Codes Instructions Start Date Status Kenalog 40 mg/mL suspension for injection RxNorm: 8240239 1Milliliter 11/20/2017 No longer Active Kenalog 40 mg/mL suspension for injection RxNorm: 5124351 1Milliliter 12/19/2014 No longer Active Immunizations Vaccine Codes Date Status Influenza CVX: 141 07/24/2017 completed Influenza CVX: 141 07/27/2016 completed Influenza CVX: 141 08/16/2015 completed Influenza CVX: 141 07/16/2013 completed Pneumococcal Unknown 07/16/2012 completed Assessments Condition Codes Effective Dates Mixed hyperlipidemia ICD-10: E78.2 ICD-9: 272.2 12/07/2017 Type 2 diabetes mellitus without complications ICD-10: E11.9 ICD-9: 250.00 12/07/2017 Essential (primary) hypertension ICD-10: I10 ICD-9: 401.1 12/07/2017 Other acute sinusitis ICD-10: J01.80 ICD-9: 461.8 11/20/2017 Other allergic rhinitis ICD-10: J30.89 ICD-9: 477.8 11/20/2017 Encounter for immunization ICD-10: Z23 ICD-9: V04.81 07/24/2017 Type 2 diabetes mellitus with diabetic autonomic (poly)neuropathy ICD-10: E11.43 ICD-9: 250.60 07/24/2017 Mixed hyperlipidemia ICD-10: E78.2 ICD-9: 272.4 06/08/2017 Other obesity due to excess calories ICD-10: E66.09 ICD-9: 278.00 06/08/2017 Encounter for screening mammogram for malignant neoplasm of breast ICD-10: Z12.31 ICD-9: V76.12 06/08/2017 Mixed incontinence ICD-10: N39.46 ICD-9: 788.33 [...] Visit Reason For Visit Effective Dates Notes sinus congestion 12/07/2017 ongoing sinus congestion 11/20/2017 [...] Observation Code Item Item Code Result Date Cbc With Differential Ord2 WBC 5.90 K/ul [...] 29.6 pg 05/31/2018 Cbc With Differential Ord2 [place]% 5.9 % 05/31/2018 Cbc With Differential Ord2 [...] 1.57 K/ul 05/31/2018 Cbc With Differential Ord2 [place] ABS# 0.4 K/ul 05/31/2018 Cbc With Differential Ord2 Eos ABS# 0.4 K/ul 05/31/2018 Cbc With Differential Ord2 Baso ABS# 0.1 K/ul 05/31/2018 Lipid Ord30 CHOL 156 mg/dL 12/01/2017 Lipid Ord30 HDL 73.0 mg/dl 12/01/2017 Lipid Ord30 TRIG 50 mg/dL 12/01/2017 Lipid Ord30 LDL 73 mg/dL 12/01/2017 Lipid Ord30 C/HDL 2.1 Ratio 12/01/2017 %Hba1C Vkv086 % HbA1c 89206-6 5.8 % 12/01/2017 %Hba1C Kib104 Gluc Ave 120 mg/dL 12/01/2017 Comp Metabolic Ukn255 NA 140 mEq/L 12/01/2017 Comp Metabolic Pxr983 K 4.1 mEq/L 12/01/2017 Comp Metabolic Stp076 CL 105 mEq/L 12/01/2017 Comp Metabolic Tal397 CO2 29.0 mEq/L 12/01/2017 Comp Metabolic Nwd495 ANION GAP 10 12/01/2017 Comp Metabolic Wmx113 GLUCOSE 91 mg/dL 12/01/2017 Comp Metabolic Efl645 Creat 0.8 mg/dL 12/01/2017 Comp Metabolic Mko943 eGFR 73 ml/min/1.73m2 12/01/2017 Comp Metabolic Rbs998 BUN 19 mg/dL 12/01/2017 Comp Metabolic Pfv379 B/C Ratio 22.9 Ratio 12/01/2017 Comp Metabolic Bnb456 CALCIUM 9.3 mg/dL 12/01/2017 Comp Metabolic Bgk988 ALK PHOS 73 U/L 12/01/2017 Comp Metabolic Sou331 AST(SGOT) 17 U/L 12/01/2017 Comp Metabolic Fml689 ALT(SGPT) 13 U/L 12/01/2017 Comp Metabolic Dnz133 BILI T 0.8 mg/dL 12/01/2017 Comp Metabolic Cgd514 ALBUMIN 3.8 g/dL 12/01/2017 Comp Metabolic Gko839 TPRO 6.4 g/dL 12/01/2017 Comp Metabolic Pdw100 GLOB 2.6 g/dL 12/01/2017 Comp Metabolic Tgt206 A/G Ratio 1.5 Ratio 12/01/2017 Comp Metabolic Tjp889 Osmo 281 mOsmo 12/01/2017 Cbc With Differential [...] 29.9 pg 12/01/2017 Cbc With Differential Ord2 [place]% 6.7 % 12/01/2017 Cbc With Differential Ord2 MCHC 33.0 pg 12/01/2017 Cbc With Differential Ord2 Eos% 6.2 % 12/01/2017 Cbc With Differential Ord2 Baso% 1.0 % 12/01/2017 Cbc With Differential Ord2 PLT 264 K/ul 12/01/2017 Cbc With Differential Ord2 Neut ABS# 3.57 K/ul 12/01/2017 Cbc With Differential Ord2 RDW 13.3 % 12/01/2017 Cbc With Differential Ord2 Lymph ABS# 1.87 K/ul 12/01/2017 Cbc With Differential Ord2 [place] ABS# 0.4 K/ul 12/01/2017 Cbc With Differential Ord2 Eos ABS# 0.4 K/ul 12/01/2017 Cbc With Differential Ord2 Baso ABS# 0.1 K/ul 12/01/2017 Comp Metabolic Nte428 NA 140 mEq/L 06/01/2017 Comp Metabolic Sfa550 K 3.9 mEq/L 06/01/2017 Comp Metabolic Lpk588 CL 105 mEq/L 06/01/2017 Comp Metabolic Xye541 CO2 27.0 mEq/L 06/01/2017 Comp Metabolic Mtr842 ANION GAP 12 06/01/2017 Comp Metabolic Fhc501 GLUCOSE 103 mg/dL 06/01/2017 Comp Metabolic Xkl682 Creat 0.8 mg/dL 06/01/2017 Comp Metabolic Pqf943 eGFR 82 ml/min/1.73m2 06/01/2017 Comp Metabolic Hjj666 BUN 16 mg/dL 06/01/2017 Comp Metabolic Lfb863 B/C Ratio 21.3 Ratio 06/01/2017 Comp Metabolic Mey918 CALCIUM 8.8 mg/dL 06/01/2017 Comp Metabolic Zwj536 ALK PHOS 61 U/L 06/01/2017 Comp Metabolic Vxe696 AST(SGOT) 17 U/L 06/01/2017 Comp Metabolic Noo093 ALT(SGPT) 14 U/L 06/01/2017 Comp Metabolic Qej241 BILI T 0.8 mg/dL 06/01/2017 Comp Metabolic Scl425 ALBUMIN 3.6 g/dL 06/01/2017 Comp Metabolic Qtd501 TPRO 6.1 g/dL 06/01/2017 Comp Metabolic Twu248 GLOB 2.5 g/dL 06/01/2017 Comp Metabolic Fes841 A/G Ratio 1.5 Ratio 06/01/2017 Comp Metabolic Odd697 Osmo 281 mOsmo 06/01/2017 %Hba1C Xob343 % HbA1c 60443-9 5.9 % 06/01/2017 %Hba1C Kvo200 Gluc Ave 123 mg/dL 06/01/2017 Lipid Ord30 CHOL 161 mg/dL 06/01/2017 Lipid Ord30 HDL 58.0 mg/dl 06/01/2017 Lipid Ord30 TRIG 117 mg/dL 06/01/2017 Lipid Ord30 LDL 80 mg/dL 06/01/2017 Lipid Ord30 C/HDL 2.8 Ratio 06/01/2017 Cbc With Differential Ord2 WBC 5.43 K/ul 06/01/2017 Cbc With Differential Ord2 RBC 4.11 M/ul 06/01/2017 Cbc With Differential Ord2 HGB 12.2 g/dl 06/01/2017 Cbc With Differential Ord2 HCT 37.3 % 06/01/2017 Cbc With Differential Ord2 Neut% 56.8 % 06/01/2017 Cbc With Differential Ord2 MCV 90.8 fl 06/01/2017 Cbc With Differential Ord2 Lymph% 27.3 % 06/01/2017 Cbc With Differential Ord2 [place]% 7.6 % 06/01/2017 Cbc With Differential Ord2 MCH 29.7 pg 06/01/2017 Cbc With Differential Ord2 MCHC 32.7 pg 06/01/2017 Cbc With Differential Ord2 Eos% 7.2 % 06/01/2017 Cbc With Differential Ord2 PLT 222 K/ul 06/01/2017 Cbc With Differential Ord2 Baso% 1.1 % 06/01/2017 Cbc With Differential Ord2 Neut ABS# 3.09 K/ul 06/01/2017 Cbc With Differential Ord2 RDW 13.3 % 06/01/2017 Cbc With Differential Ord2 Lymph ABS# 1.48 K/ul 06/01/2017 Cbc With Differential Ord2 [place] ABS# 0.4 K/ul 06/01/2017 Cbc With Differential Ord2 Eos ABS# 0.4 K/ul 06/01/2017 Cbc With Differential Ord2 Baso ABS# 0.1 K/ul 06/01/2017 Lipid Ord30 CHOL 161 mg/dL 11/30/2016 Lipid Ord30 HDL 69.0 mg/dl 11/30/2016 Lipid Ord30 TRIG 82 mg/dL 11/30/2016 Lipid Ord30 LDL 76 mg/dL 11/30/2016 Lipid Ord30 C/HDL 2.3 Ratio 11/30/2016 Comp Metabolic Noi818 NA 139 mEq/L 11/30/2016 Comp Metabolic Sbb802 K 4.1 mEq/L 11/30/2016 Comp Metabolic Nti142 CL 102 mEq/L 11/30/2016 Comp Metabolic Dix139 CO2 30.0 mEq/L 11/30/2016 Comp Metabolic Ign528 ANION GAP 11 11/30/2016 Comp Metabolic Wds617 GLUCOSE 93 mg/dL 11/30/2016 Comp Metabolic Tak450 Creat 0.9 mg/dL 11/30/2016 Comp Metabolic Yxj367 eGFR 68 ml/min/1.73m2 11/30/2016 Comp Metabolic Iyh079 BUN 15 mg/dL 11/30/2016 Comp Metabolic Qki655 B/C Ratio 17.0 Ratio 11/30/2016 Comp Metabolic Nnj030 CALCIUM 9.6 mg/dL 11/30/2016 Comp Metabolic Xwg463 ALK PHOS 61 U/L 11/30/2016 Comp Metabolic Sjn033 AST(SGOT) 19 U/L 11/30/2016 Comp Metabolic Mth072 ALT(SGPT) 14 U/L 11/30/2016 Comp Metabolic Nfj886 BILI T 0.7 mg/dL 11/30/2016 Comp Metabolic Ohm136 ALBUMIN 4.0 g/dL 11/30/2016 Comp Metabolic Gow144 TPRO 6.6 g/dL 11/30/2016 Comp Metabolic Wmn330 GLOB 2.6 g/dL 11/30/2016 Comp Metabolic Auz380 A/G Ratio 1.5 Ratio 11/30/2016 Comp Metabolic Zzh377 Osmo 278 mOsmo 11/30/2016 Cbc With Differential Ord2 WBC 7.23 K/ul 11/30/2016 Cbc With Differential Ord2 RBC 4.15 M/ul 11/30/2016 Cbc With Differential Ord2 HGB 12.3 g/dl 11/30/2016 Cbc With Differential Ord2 Neut% 66.7 % 11/30/2016 Cbc With Differential Ord2 HCT 37.8 % 11/30/2016 Cbc With Differential Ord2 MCV 91.1 fl 11/30/2016 Cbc With Differential Ord2 Lymph% 19.2 % 11/30/2016 Cbc With Differential Ord2 MCH 29.6 pg 11/30/2016 Cbc With Differential Ord2 [place]% 5.4 % 11/30/2016 Cbc With Differential Ord2 Eos% 7.9 % 11/30/2016 Cbc With Differential Ord2 MCHC 32.5 pg 11/30/2016 Cbc With Differential Ord2 Baso% 0.8 % 11/30/2016 Cbc With Differential Ord2 PLT 238 K/ul 11/30/2016 Cbc With Differential Ord2 RDW 13.2 % 11/30/2016 Cbc With Differential Ord2 Neut ABS# 4.82 K/ul 11/30/2016 Cbc With Differential Ord2 Lymph ABS# 1.39 K/ul 11/30/2016 Cbc With Differential Ord2 [place] ABS# 0.4 K/ul 11/30/2016 Cbc With Differential Ord2 Eos ABS# 0.6 K/ul 11/30/2016 Cbc With Differential Ord2 Baso ABS# 0.1 K/ul 11/30/2016 %Hba1C Voo465 % HbA1c 23501-5 5.8 % 11/30/2016 %Hba1C Kqd041 Gluc Ave 120 mg/dL 11/30/2016 Cbc With Differential Ord2 WBC 6.24 K/ul 07/27/2016 Cbc With Differential Ord2 RBC 4.12 M/ul 07/27/2016 Cbc With Differential Ord2 HGB 12.3 g/dl 07/27/2016 Cbc With Differential Ord2 Neut% 57.9 % 07/27/2016 Cbc With Differential Ord2 HCT 37.6 % 07/27/2016 Cbc With Differential Ord2 Lymph% 28.5 % 07/27/2016 Cbc With Differential Ord2 MCV 91.3 fl 07/27/2016 Cbc With Differential Ord2 MCH 29.9 pg 07/27/2016 Cbc With Differential Ord2 [place]% 5.8 % 07/27/2016 Cbc With Differential Ord2 Eos% 7.2 % 07/27/2016 Cbc With Differential Ord2 MCHC 32.7 pg 07/27/2016 Cbc With Differential Ord2 PLT 254 K/ul 07/27/2016 Cbc With Differential Ord2 Baso% 0.6 % 07/27/2016 Cbc With Differential Ord2 RDW 13.1 % 07/27/2016 Cbc With Differential Ord2 Neut ABS# 3.61 K/ul 07/27/2016 Cbc With Differential Ord2 Lymph ABS# 1.78 K/ul 07/27/2016 Cbc With Differential Ord2 [place] ABS# 0.4 K/ul 07/27/2016 Cbc With Differential Ord2 Eos ABS# 0.5 K/ul 07/27/2016 Cbc With Differential Ord2 Baso ABS# 0.0 K/ul 07/27/2016 Comp Metabolic Aln428 NA 137 mEq/L 07/27/2016 Comp Metabolic Llf839 K 3.9 mEq/L 07/27/2016 Comp Metabolic Vre876 CL 103 mEq/L 07/27/2016 Comp Metabolic Tut398 CO2 27.0 mEq/L 07/27/2016 Comp Metabolic Ebe187 ANION GAP 11 07/27/2016 Comp Metabolic Vji875 GLUCOSE 107 mg/dL 07/27/2016 Comp Metabolic Ybf732 Creat 0.9 mg/dL 07/27/2016 Comp Metabolic Mpg901 eGFR 71 ml/min/1.73m2 07/27/2016 Comp Metabolic Mlo247 BUN 22 mg/dL 07/27/2016 Comp Metabolic Ndr717 B/C Ratio 25.9 Ratio 07/27/2016 Comp Metabolic Mqj018 CALCIUM 9.2 mg/dL 07/27/2016 Comp Metabolic Cmf426 ALK PHOS 66 U/L 07/27/2016 Comp Metabolic Upf684 AST(SGOT) 20 U/L 07/27/2016 Comp Metabolic Nkx410 ALT(SGPT) 15 U/L 07/27/2016 Comp Metabolic Dmc815 BILI T 0.6 mg/dL 07/27/2016 Comp Metabolic Byn929 ALBUMIN 4.0 g/dL 07/27/2016 Comp Metabolic Ioi871 TPRO 6.5 g/dL 07/27/2016 Comp Metabolic Laz518 GLOB 2.5 g/dL 07/27/2016 Comp Metabolic Uqk815 A/G Ratio 1.6 Ratio 07/27/2016 Comp Metabolic Aei044 Osmo 278 mOsmo 07/27/2016 %Hba1C Lsc353 % HbA1c 36315-2 5.9 % 07/27/2016 %Hba1C Zio351 Gluc Ave 123 mg/dL 07/27/2016 Tsh Ord6 hTSH II 1.43 uIU/mL 07/27/2016 Lipid Ord30 CHOL 153 mg/dL 07/27/2016 Lipid Ord30 HDL 62.0 mg/dl 07/27/2016 Lipid Ord30 TRIG 82 mg/dL 07/27/2016 Lipid Ord30 LDL 75 mg/dL 07/27/2016 Lipid Ord30 C/HDL 2.5 Ratio 07/27/2016 Lipid Ord30 CHOL 143 mg/dL 03/30/2016 Lipid Ord30 HDL 50.0 mg/dl 03/30/2016 Lipid Ord30 TRIG 128 mg/dL 03/30/2016 Lipid Ord30 LDL 67 mg/dL 03/30/2016 Lipid Ord30 C/HDL 2.9 Ratio 03/30/2016 Tsh Ord6 hTSH II 1.00 uIU/mL 03/30/2016 %Hba1C Hex312 % HbA1c 88643-3 6.3 % 03/30/2016 %Hba1C Lhk946 Gluc Ave 134 mg/dL 03/30/2016 Cbc With Differential Ord2 WBC 7.16 K/ul 03/30/2016 Cbc With Differential Ord2 RBC 4.36 M/ul 03/30/2016 Cbc With Differential Ord2 HGB 12.7 g/dl 03/30/2016 Cbc With Differential Ord2 HCT 39.6 % 03/30/2016 Cbc With Differential Ord2 Neut% 61.9 % 03/30/2016 Cbc With Differential Ord2 MCV 90.8 fl 03/30/2016 Cbc With Differential Ord2 Lymph% 25.4 % 03/30/2016 Cbc With Differential Ord2 [place]% 6.3 % 03/30/2016 Cbc With Differential Ord2 MCH 29.1 pg 03/30/2016 Cbc With Differential Ord2 MCHC 32.1 pg 03/30/2016 Cbc With Differential Ord2 Eos% 5.7 % 03/30/2016 Cbc With Differential Ord2 PLT 288 K/ul 03/30/2016 Cbc With Differential Ord2 Baso% 0.7 % 03/30/2016 Cbc With Differential Ord2 Neut ABS# 4.43 K/ul 03/30/2016 Cbc With Differential Ord2 RDW 13.6 % 03/30/2016 Cbc With Differential Ord2 Lymph ABS# 1.82 K/ul 03/30/2016 Cbc With Differential Ord2 [place] ABS# 0.5 K/ul 03/30/2016 Cbc With Differential Ord2 Eos ABS# 0.4 K/ul 03/30/2016 Cbc With Differential Ord2 Baso ABS# 0.1 K/ul 03/30/2016 Comp Metabolic Fgs065 NA 137 mEq/L 03/30/2016 Comp Metabolic Ytz010 K 4.0 mEq/L 03/30/2016 Comp Metabolic Cfa806 CL 102 mEq/L 03/30/2016 Comp Metabolic Nsr854 CO2 29.0 mEq/L 03/30/2016 Comp Metabolic Wfw800 ANION GAP 10 03/30/2016 Comp Metabolic Hzf436 GLUCOSE 111 mg/dL 03/30/2016 Comp Metabolic Lrg298 Creat 1.0 mg/dL 03/30/2016 Comp Metabolic Hxi709 eGFR 61 ml/min/1.73m2 03/30/2016 Comp Metabolic Jpy337 BUN 19 mg/dL 03/30/2016 Comp Metabolic Jux627 B/C Ratio 19.6 Ratio 03/30/2016 Comp Metabolic Xes700 CALCIUM 9.4 mg/dL 03/30/2016 Comp Metabolic Rbj921 ALK PHOS 64 U/L 03/30/2016 Comp Metabolic Ayf074 AST(SGOT) 16 U/L 03/30/2016 Comp Metabolic Bvd291 ALT(SGPT) 15 U/L 03/30/2016 Comp Metabolic Qau859 BILI T 0.7 mg/dL 03/30/2016 Comp Metabolic Ulz036 ALBUMIN 3.7 g/dL 03/30/2016 Comp Metabolic Knm611 TPRO 6.3 g/dL 03/30/2016 Comp Metabolic Xab359 GLOB 2.6 g/dL 03/30/2016 Comp Metabolic Msq199 A/G Ratio 1.4 Ratio 03/30/2016 Comp Metabolic Efp488 Osmo 277 mOsmo 03/30/2016 Comp Metabolic Hvb962 NA 143 mEq/L 08/31/2015 Comp Metabolic Uhf989 K 3.7 mEq/L 08/31/2015 Comp Metabolic Ddu924 CL 105 mEq/L 08/31/2015 Comp Metabolic Rgv895 CO2 24.0 mEq/L 08/31/2015 Comp Metabolic Kts969 ANION GAP 18 08/31/2015 Comp Metabolic Srd034 GLUCOSE 110 mg/dL 08/31/2015 Comp Metabolic Ipx234 Creat 0.8 mg/dL 08/31/2015 Comp Metabolic Ioo842 eGFR 77 ml/min/1.73m2 08/31/2015 Comp Metabolic Yxt774 BUN 14 mg/dL 08/31/2015 Comp Metabolic Sba731 B/C Ratio 17.5 Ratio 08/31/2015 Comp Metabolic Ajh935 CALCIUM 8.8 mg/dL 08/31/2015 Comp Metabolic Rbg195 ALK PHOS 61 U/L 08/31/2015 Comp Metabolic Szv556 AST(SGOT) 16 U/L 08/31/2015 Comp Metabolic Kvd792 ALT(SGPT) 14 U/L 08/31/2015 Comp Metabolic Nse281 BILI T 0.5 mg/dL 08/31/2015 Comp Metabolic Qor923 ALBUMIN 3.7 g/dL 08/31/2015 Comp Metabolic Rgj432 TPRO 6.1 g/dL 08/31/2015 Comp Metabolic Ymi234 GLOB 2.4 g/dL 08/31/2015 Comp Metabolic Eex368 A/G Ratio 1.5 Ratio 08/31/2015 Comp Metabolic Grn021 Osmo 286 mOsmo 08/31/2015 Cbc With Differential Ord2 WBC 6.0 [...] With Differential Ord2 RDW 13.5 % 08/31/2015 Lipid Ord30 CHOL 157 mg/dL 08/31/2015 Lipid Ord30 HDL 64.0 mg/dl 08/31/2015 Lipid Ord30 TRIG 126 mg/dL 08/31/2015 Lipid Ord30 LDL 68 mg/dL 08/31/2015 Lipid Ord30 C/HDL 2.5 Ratio 08/31/2015 %Hba1C Zyx576 % HbA1c 45354-4 6.2 % 08/31/2015 %Hba1C Gug613 Gluc Ave 131 mg/dL 08/31/2015 LIPID GRP HDL TEST 64 MG/DL 05/15/2014 LIPID GRP TRIG 95 MG/DL 05/15/2014 LIPID GRP 8618548 TEST LDL 84 MG/DL 05/15/2014 LIPID GRP 2766655 CHOL 167 MG/DL 05/15/2014 LIPID GRP 1711575 RCHOL/HDL 2.61 RATIO 05/15/2014 LIPID GRP NON-HDL CH 103 MG/DL 05/15/2014 GFR CALC 9756559 GFR AA >60 ML/MIN 05/15/2014 GFR CALC 5201864 GFR NON-AA 56.0L ML/MIN 05/15/2014 CHEM 14 8593486 AST 21 U/L 05/15/2014 CHEM 14 0933269 ALT 16 IU/L 05/15/2014 CHEM 14 4977250 BUN 21 MG/DL 05/15/2014 CHEM 14 6771892 ALBUMIN 3.9 GM/DL 05/15/2014 CHEM 14 5079890 CHLORIDE 106 MMOL/L 05/15/2014 CHEM 14 4685169 BILI TOT 0.6 MG/DL 05/15/2014 CHEM 14 5691622 ALK PHOS 67 U/L 05/15/2014 CHEM 14 8790811 SODIUM 137 MMOL/L 05/15/2014 CHEM 14 3550853 CREATININE 1.00 MG/DL 05/15/2014 CHEM 14 5881919 CALCIUM 9.0 MG/DL 05/15/2014 CHEM 14 3941555 POTASSIUM 3.9 MMOL/L 05/15/2014 CHEM 14 7189882 PROT TOT 6.4 GM/DL 05/15/2014 CHEM 14 5768875 GLUCOSE 119 MG/DL 05/15/2014 CHEM 14 6769393 BICARB 24 MMOL/L 05/15/2014 CHEM 14 3810495 ANION GAP 7 MEQ/L 05/15/2014 TSH 1756465 TSH 1.749 uIU/ML 05/15/2014 A1C HPLC 4825300 A1C HPLC 78066-8 6.0 % 05/15/2014 CBC 4961809 WBC 5.9 10e9/L 05/15/2014 CBC 3393138 RBC 4.08 10e12/L 05/15/2014 CBC 0197961 HGB 12.1 g/dL 05/15/2014 CBC 0037088 HCT DET 37.0 % 05/15/2014 CBC 8856568 MCV 90.7 fL 05/15/2014 CBC 8113320 MCH 29.7 pg 05/15/2014 CBC 9009640 MCHC 32.7 g/dL 05/15/2014 CBC 1070891 PLT 243 10e9/L 05/15/2014 CBC 2051166 MPV 10.4 fL 05/15/2014 CBC 8392788 MARVIN % 56.5 % 05/15/2014 CBC 4138742 LY % 29.8 % 05/15/2014 CBC 3834743 MON % 6.4 % 05/15/2014 CBC 8527093 EOS % 6.1 % 05/15/2014 CBC 5792205 BASO % 1.2 % 05/15/2014 CBC 6168774 RDW 12.9 % 05/15/2014 CBC 2127599 ABS MARVIN 3.33 10e9/L 05/15/2014 CBC 5205308 ABS LYMPH 1.76 10e9/L 05/15/2014 CBC 8584331 ABS MONO 0.38 10e9/L 05/15/2014 CBC 9301622 ABS EOS 0.36 10e9/L 05/15/2014 CBC 0886620 ABS BASO 0.07 10e9/L 05/15/2014 CBC 2841679 RDW-SD 42.1 fL 05/15/2014 Review of Systems System Result Effective [...] foot 07/24/2017 None Full Exam - General 1995 Neurologic sensation Touch: (specify location of deficit): [...] Procedure Codes Date THER/PROPH/DIAG INJ SC/IM CPT-4: 48320 11/20/2017 TRIAMCINOLONE ACET INJ NOS CPT-4: J3301 11/20/2017 IIV4 VACC NO PRSV 3 YRS+ IM CPT-4: 59060 07/24/2017 FLU VAC NO PRSV 4 JAIME 3 YRS+ CPT-4: 95218 07/24/2017 ADMIN INFLUENZA VIRUS VAC CPT-4: G0008 07/24/2017 IIV4 VACC NO PRSV 3 YRS+ IM CPT-4: 07554 07/24/2017 DESTRUCT PREMALG LES 2-14 CPT-4: 62206 08/03/2016 IMMUNIZATION ADMIN CPT -4: 53328 07/27/2016 FLU VACC 4 JAIME 3 YRS PLUS IM Formatting Model/CDA Sections, Assigned to/Aimee Weinberg CT: [id number] CPT-4: 79329Tiygaha 07/27/2016 INITIAL PREVENTIVE EXAM CPT-4: G0402 12/31/2015 DRAIN/INJECT JOINT/BURSA CPT-4: 68145 12/18/2014 TRIAMCINOLONE ACET INJ NOS CPT-4: J3301 12/18/2014 ROUTINE VENIPUNCTURE CPT-4: 58351 05/15/2014 Vital Signs Date Vital 12/07/2017 Blood Pressure 1: 126/84 Code : 8480-6 BMI: 38.6 Code : 50091-8 Heart Rate 1 : 77 bpm Height: 5'4" SpO2: 96% Weight: 225 lbs 11/20/2017 Blood Pressure 1: 142/80 Code : 8480-6 BMI: 37.6 Code : 97770-8 Heart Rate 1 : 64 bpm Height: 5'4" SpO2: 98% Temperature: 37.1 (C) / 98.7 (F) Weight: 219 lbs 07/24/2017 Blood Pressure 1: 118/74 Code : 8480-6 BMI: 37.4 Code : 97899-9 Heart Rate 1 : 80 bpm Height: 5'4" SpO2: 97% Weight: 218 lbs 06/08/2017 Blood Pressure 1: 120/72 Code : 8480-6 BMI: 37.0 Code : 49228-1 Heart Rate 1 : 77 bpm Height: 5'4" SpO2: 98% Weight: 215 lbs 8 oz 12/07/2016 Blood Pressure 1: 132/76 Code : 8480-6 BMI: 36.9 Code : 85951-3 Heart Rate 1 : 78 bpm Height: 5'4" SpO2: 97% Weight: 215 lbs 11/30/2016 Blood Pressure 1: 136/72 Code : 8480-6 BMI: 37.1 Code : 38767-9 Heart Rate 1 : 78 bpm Height: 5'4" SpO2: 97% Temperature: 36.7 (C) / 98.1 (F) Weight: 216 lbs 11/03/2016 Blood Pressure 1: 130/86 Code : 8480-6 Heart Rate 1: 75 bpm Height: SpO2: 98% Weight: 08/03/2016 Blood Pressure 1: 120/76 Code : 8480-6 BMI: 37.4 Code : 60971-1 Heart Rate 1 : 72 bpm Height: 5'4" SpO2: 98% Weight: 218 lbs 04/05/2016 Blood Pressure 1: 110/70 Code : 8480-6 BMI: 38.9 Code : 96479-0 Heart Rate 1 : 87 bpm Height: 5'4" SpO2: 97% Weight: 226 lbs 8 oz 12/31/2015 Blood Pressure 1: 140/78 Code : 8480-6 BMI: 44.1 Code : 63787-7 Heart Rate 1 : 74 bpm Height: 5'4" SpO2: 97% Waist Measure (cm): 117 cm Weight: 257 lbs 11/04/2015 Blood Pressure 1: 148/62 Code : 8480-6 BMI: 44.1 Code : 75957-7 Heart Rate 1 : 67 bpm Height: 5'3" SpO2: 96% Weight: 249 lbs 09/08/2015 Blood Pressure 1: 140/80 Code : 8480-6 BMI: 44.3 Code : 31222-5 Heart Rate 1 : 88 bpm Height: 5'3" Weight: 250 lbs 02/19/2015 Blood Pressure 1: 132/84 Code : 8480-6 BMI: 45.5 Code : 43265-0 Heart Rate 1 : 64 bpm Height: 5'3" SpO2: 96% Weight: 257 lbs 12/18/2014 Blood Pressure 1: 136/80 Code : 8480-6 BMI: 45.3 Code : 16136-8 Heart Rate 1 : 80 bpm Height: 5'3" Weight: 256 lbs 12/10/2014 Blood Pressure 1: 140/78 Code : 8480-6 BMI: 45.3 Code : 23999-1 Heart Rate 1 : 74 bpm Height: 5'3" Weight: 256 lbs 09/05/2014 Blood Pressure 1: 158/90 Code : 8480-6 BMI: 45.0 Code : 59467-2 Heart Rate 1 : 72 bpm Height: 5'3" Weight: 254 lbs 08/01/2014 Blood Pressure 1: 138/70 Code : 8480-6 BMI: 44.6 Code : 80478-1 Heart Rate 1 : 70 bpm Height: 5'3" SpO2: 99% Weight: 252 lbs 05/07/2014 Blood Pressure 1: 136/78 Code : 8480-6 BMI: 43.4 Code : 43597-1 Heart Rate 1 : 75 bpm Height: 5'3" Respiratory Rate: 20 bpm Temperature: 36.6 ( C) / 97.8 (F) Weight: 245 lbs Functional Status No Functional Status data History of Present Illness Symptom Name Status Result Effective Date Notes sinus congestion Quality acute 12/07/2017 None sinus [...] 08/01/2014 None well woman exam (40-65 years) Breast/Dragline Oiler Complaints urinary urgency 08/01/2014 "nothing different than before" takes vesicare well woman exam (40-65 years) Breast/Dragline Oiler Complaints urinary incontinence 08/01/2014 None well woman exam (40-65 years) Breast/Dragline Oiler Complaints pelvic pressure 08/01/2014 None well woman exam (40-65 years) Breast/Dragline Oiler Complaints breast pain 08/01/2014 None well woman exam (40-65 years) Breast/Dragline Oiler Complaints breast mass 08/01/2014 None well woman exam (40-65 years) Breast/Dragline Oiler Complaints menopausal symptoms 08/01/2014 None well woman exam (40-65 years) Breast/Dragline Oiler Complaints perimenopausal symptoms 08/01/2014 None well woman [...] data Encounters Encounter Performer Location Codes Date ([id number]) 63350 EST. PATIENT, LEVEL IV Diagnosis: Essential (primary) hypertension[ICD10: I10] Diagnosis: Type 2 diabetes mellitus without complications[ICD10: E11.9] Diagnosis: Mixed hyperlipidemia[ICD10: E78.2] [facility] CPT-4: 56678 12/07/2017 72343 EST. PATIENT, LEVEL IV Diagnosis: Other acute sinusitis[ICD10: J01.80] Diagnosis: Other allergic rhinitis[ICD10: J30.89] [facility] CPT-4: 70207 11/20/2017 [id number]) 58760 EST. 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 PATIENT, LEVEL IV Diagnosis: Type 2 diabetes mellitus without complications[ICD10: E11.9] Diagnosis: Mixed hyperlipidemia[ICD10: E78.2] Diagnosis: Essential (primary) hypertension[ICD10: I10] Diagnosis: Other obesity due to excess calories[ICD10: E66.09] Diagnosis: Encounter for screening mammogram for malignant neoplasm of breast[ ICD10: Z12.31] Inez Morris MD, [facility] CPT-4: 37042 06/08/2017 ([id number]) 04257 EST. PATIENT, LEVEL IV Diagnosis: Essential (primary) hypertension[ICD10: I10] Diagnosis: Mixed incontinence[ICD10: N39.46] Diagnosis: Type 2 diabetes mellitus without complications[ICD10: E11.9] Diagnosis: Mixed hyperlipidemia[ICD10: E78.2] Inez Morris MD, [facility] CPT-4: 65648 12/07/2016 00771 EST. PATIENT, LEVEL IV Diagnosis: Mixed hyperlipidemia[ICD10: E78.2] Diagnosis: Other acute sinusitis[ICD10: J01.80] [facility] CPT-4: 21374 11/30/2016 37901 EST. PATIENT, LEVEL III Diagnosis: Other allergic rhinitis[ICD10: J30.89] Diagnosis: Acute nasopharyngitis [common cold][ICD10: J00] [facility] CPT-4: 49178 11/03/2016 ([id number]) 64635 EST. PATIENT, LEVEL IV Diagnosis: Mixed hyperlipidemia[ICD10: E78.2] Diagnosis: Type 2 diabetes mellitus without complications[ICD10: E11.9] Diagnosis: Actinic keratosis[ICD10: L57.0] Diagnosis: Inflamed seborrheic keratosis[ICD10: L82.0] Inez Morris MD, [facility] CPT-4: 18821 08/03/2016 ([id number]) 18215 EST. PATIENT, LEVEL IV Diagnosis: Type 2 diabetes mellitus without complications[ICD10: E11.9] Diagnosis: Essential (primary) hypertension[ICD10: I10] Diagnosis: Other obesity due to excess calories[ICD10: E66.09] Inez Morris MD [facility] CPT-4: 26398 04/05/2016 65201 EST. PATIENT, LEVEL III Diagnosis: Rash and other nonspecific skin eruption[ICD10: R21] Qian Morris MD, [facility] CPT-4: 24685 11/04/2015 ([id number]) PREV VISIT EST AGE 40-64 Diagnosis: Encounter for gynecological examination (general) (routine) without abnormal findings[ICD10: Z01.419] Inez Morris MD [facility] CPT-4: 03624 09/08/2015 ([id number]) 97729 EST. PATIENT, LEVEL II Diagnosis: Right foot pain[ICD9: 729.5] Shiloh Morris MD [facility] CPT-4: 36453 02/19/2015 ([id number]) 08067 EST. PATIENT, LEVEL IV Diagnosis: Plantar fascia syndrome[ICD9: 728.71] Diagnosis: Heel pain[ICD9: 729.5] Inez Morris MD [facility] CPT-4: 13424 12/10/2014 ([id number]) 24425 EST. PATIENT, LEVEL IV Diagnosis: ESSENTIAL HYPERTENSION[ICD9: 401.9] Diagnosis: Depressive disorder[ICD9: 311] Inez Morris MD [facility] CPT- 4: 27880 09/05/2014 ([id number]) PREV VISIT EST AGE 40-64 Diagnosis: ROUTINE GYNE EXAM[ICD9: V72.31] Inez Morris MD [facility] CPT- 4: 74952 08/01/2014 ([id number]) OFFICE VISIT, NEW - LEVEL 4 Diagnosis: ESSENTIAL HYPERTENSION[ICD9: 401.9] Diagnosis: OBESITY[ICD9: 278.00] Diagnosis: Urinary urgency[ICD9: 788.63] Diagnosis: Depressive disorder[ICD9: 311] Diagnosis: HYPERLIPIDEMIA[ICD9: 272.4] Diagnosis: Myalgia and myositis[ICD9: 729.1] [facility] CPT-4: 94811 05/07/2014 Plan of Care Planned Activity Notes [...] to medications. 12/07/2017 Appointment: Inez Morris WPtel: [address] [place], [place] [phone] (15 min) Moderate 12/07/2017 Patient Education: Patient [...] steroid allergy spray. 11/20/2017 Appointment: Qian Burgos WPtel:[phone] (15 min) Moderate 11/20/2017 Patient Education: Patient [...] Recommended patient to take paperwork to her foot worker for diabetic shoes. 07/24/2017 App[facility]ment[phone] (15 min) Moderate 07/24/2017 Patient Education: [...] of carbohydrates. 06/08/2017 Appointment: [facility]el[phone] [facility] [place] (15 min) Moderate 06/08/2017 Patient Education: Patient [...] pharmacy 12/07/2016 Appointment: [facility]el[phone] [facility] [place] (15 min) Moderate 12/07/2016 Patient Education: Patient Medication Summary Completed 12/07/2016 Patient Education: Obesity Completed 12/07/2016 Care Plan: Referral Order SNOMED-CT : [id number] Pending 12/07/2016 Visit Plan: Sinusitis - Pt [...] pharmacy. 11/30/2016 Appointment: [phone] [place] (10 min) Simple 11/30/2016 Patient Education: [...] allergy spray. 11/03/2016 Appointment: [facility] Burgos [facility] [phone] [facility] (10 min) Simple 11/03/2016 Patient Education: Patient [...] acute concerns. 08/03/2016 Appointment: Inez Morris WPtel: [facility] [place] (15 min) Moderate 08/03/2016 Patient Education: Patient [...] dietary changes. 04/05/2016 Appointment: Inez Morris WPtel: [facility] (15 min) Moderate 04/05/2016 Patient Education: Patient [...] & TRAIN 1 PT Ordered 2015 Appointment: MCR - Welcome to Medicare visit 12/29/2015 Appointment: MCR - Welcome to Medicare visit 11/24/2015 Visit [...] or prn. 09/08/2015 Appointment: Inez Morris WPtel: [facility] Well Woman 09/08/2015 Patient Education: Patient Medication [...] injection. 12/18/2014 Appointment: Inez Morris WPtel: [phone] [facility] Follow up 12/18/2014 Patient Education: Patient Medication [...] this patient. 09/05/2014 Appointment: Inez Morris WPtel: [facility] Follow up 09/05/2014 Patient Education: Patient [...] or prn. 08/01/2014 Appointment: Inez Morris WPtel: [address] [place], [place] [address] [facility] 08/01/2014 Patient Education: Patient Medication Summary Completed 08/01/2014 Care Plan: PAP Pending 08/01/2014 Appointment: In[facility] Morris WPtel[phone] [facility] [place] Follow up 06/26/2014 Appointment: Inez Morris WPtel[facility] [phone] [facility] Lab Draw 05/15/2014 Patient Education: Patient Medication [...] pt to consider counseling. 05/07/2014 Appointment: Inez Morristel: [address] [place] [address] New Patient 05/07/2014 Patient Education: Patient Medication Summary Completed 05/07/2014 Appointment: Inez Morris WPtel: [address] [place], [place] [phone] New Patient 04/30/2014 Appointment: Inez Morris WPtel: [address] [place] [address] New Patient 04/28/2014 Referral: Dr Packer Referral [...] to assure normal liver response to medications. . Well Adult Female - exam completed. [...] increase activity, decrease intake of carbohydrates. . Well Adult Female - exam completed. Pap and breast exam completed. Pt will be called with results of her testing. She was advised to continue with yearly annual exams. Safe sex practices discussed during office visit today. Call if any abnormal gynecologic issues during the next year, otherwise, RTC yearly or prn. . Plantar fasciitis- pt was educated that this is an inflammatory process, need to stretch the foot and reduce inflammation until the pain is improved. Pt advised to purchase shoes that have better arch support. . Right foot pain-xray right foot and proceed as indicated . Diabetes Mellitus - controlled - per [...] continue with exercise and dietary changes. . 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 Probiotic - Snip.lylle, [employer], or generic while on the antibiotic. Sinusitis [...] Recommended patient to take paperwork to her foot worker for diabetic shoes. . Welcome to Medicare [...]
--- OUTSIDE RECORDS SUMMARY | 2018-09-05 22:46 | XMS REPORT | CCD ---
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 Unknown Has never used illegal drugs 05/07/2014 Allergies, Adverse Reactions, Alerts Allergies, Adverse Reactions, Alerts data not found Past Medical History Illness Codes Condition Status Onset Date Resolved Date Encounter for immunization ICD-9: V04.81 ICD-10: Z23 Active 07/26/2016 Unknown Essential (primary) hypertension ICD-9: 401.1 ICD-10: I10 Active 12/07/2016 Unknown Type 2 diabetes mellitus with diabetic autonomic (poly) neuropathy ICD-9: 250.60 ICD-10: E11.43 Active 07/24/2017 Unknown Type 2 diabetes mellitus without complications ICD-9: 250.00 ICD-10: E11.9 Active 05/15/2014 Unknown Encounter for screening mammogram for malignant neoplasm of breast ICD-9: V76.12 ICD-10: Z12.31 Active 06/08/2017 Unknown Mixed hyperlipidemia ICD-9: 272.4 ICD-10: E78.2 Active 07/26/2016 Unknown Other obesity due to excess calories ICD-9: 278.00 ICD-10: E66.09 Active 05/07/2014 Unknown Mixed hyperlipidemia ICD-9: 272.2 ICD-10: E78.2 Active 08/02/2016 Unknown Mixed incontinence ICD -9: 788.33 ICD-10: N39.46 Active 12/07/2016 Unknown Other acute sinusitis ICD-9: 461.8 ICD-10: J01.80 Active 11/30/2016 Unknown Other allergic rhinitis ICD-9: 477.8 ICD-10: J30.89 Active 11/02/2016 Unknown Acute nasopharyngitis [common cold] ICD-9: 460 [...] Problems Condition Codes Effective Dates Condition Status Encounter for immunization ICD-9: V04.81 ICD-10: Z23 07/26/2016 Active Essential (primary) hypertension ICD-9: 401.1 ICD-10: I10 12/07/2016 Active Type 2 diabetes mellitus with diabetic autonomic (poly) neuropathy ICD-9: 250.60 ICD-10: E11.43 07/24/2017 Active Type 2 diabetes mellitus without complications ICD-9: 250.00 ICD-10: E11.9 05/15/2014 Active Encounter for screening mammogram for malignant neoplasm of breast ICD-9: V76.12 ICD-10: Z12.31 06/08/2017 Active Mixed hyperlipidemia ICD-9: 272.4 ICD-10: E78.2 07/26/2016 Active Other obesity due to excess calories ICD-9: 278.00 ICD-10: E66.09 05/07/2014 Active Mixed hyperlipidemia ICD-9: 272.2 ICD-10: E78.2 08/02/2016 Active Mixed incontinence ICD -9: 788.33 ICD-10: N39.46 12/07/2016 Active Other acute sinusitis ICD-9: 461.8 ICD-10: J01.80 11/30/2016 Active Other allergic rhinitis ICD-9: 477.8 ICD-10: J30.89 11/02/2016 Active Acute nasopharyngitis [common cold] ICD-9: 460 [...] Start Date Stop Date Status Fill Instructions losartan 25 mg tablet RxNorm: 550194 TAKE 1 TABLET EVERY DAY 11/07/2018 Active Valtrex 1 gram tablet RxNorm: 333100 1 Tablet(s) PO daily as needed 09/20/2017 No Stop Date Active Valtrex 1 gram tablet RxNorm: 734282 1 Tablet(s) PO daily as needed 06/28/2017 09/19/2017 Inactive Transderm-Scop 1.5 mg transdermal patch (1 mg over 3 days) RxNorm: 046084 1 Patch TD Q72H 06/08/2017 06/20/2017 Inactive nystatin 100,000 unit/gram topical cream RxNorm: 637541 1 Gram(s) TOP TID 06/08/2017 06/27/2017 Inactive alprazolam 0.25 mg tablet RxNorm: 418050 1 Tablet(s) PO TID as needed 04/21/2017 07/19/2017 Inactive metformin 500 mg tablet RxNorm: 202597 1/2 Tablet(s) PO BID 09/201701/19/2018 Active estradiol 0.5 mg tablet RxNorm: 816193 1 Tablet(s) PO BID 01/2001/14/2018 Active metformin 500 mg tablet RxNorm: 972051 1/2 Tablet(s) PO BID 04/201701/24/2017 Inactive estradiol 0.5 mg tablet RxNorm: 286312 1 Tablet(s) PO BID 01/1601/19/2017 Inactive metformin 500 mg tablet RxNorm: 535200 1/2 Tablet(s) PO BID 12/201601/19/2017 Inactive atorvastatin 10 mg tablet RxNorm: 496632 1/2 Tablet(s) PO daily 12/07/2016 12/01/2017 Active trospium 20 mg tablet RxNorm: 507242 1 Tablet(s) PO BID 201608/28/2018 Active citalopram 20 mg tablet RxNorm: 080396 1 Tablet(s) PO daily 12/01/2017 Active losartan 25 mg tablet RxNorm: 436868 1 Tablet(s) PO daily 201609/02/2017 Inactive Keflex 500 mg capsule RxNorm: 039191 1 Capsule(s) PO TID 201612/09/2016 Inactive trospium 20 mg tablet RxNorm: 957062 1 Tablet(s) PO BID 201612/06/2016 Inactive amoxicillin 500 mg capsule RxNorm: 229938 1 Capsule(s) PO TID 11/04/2016 11/13/2016 Inactive amoxicillin 500 mg capsule RxNorm: 715921 1 Capsule(s) PO TID 11/04/2016 11/03/2016 Inactive Myrbetriq 50 mg tablet,extended release RxNorm: 2410590 1 Tablet(s) PO daily 11/03/2016 No Stop Date Active Flonase Allergy Relief 50 mcg/actuation nasal spray, suspension RxNorm: 9971811 1 [place] NASAL BID 11/03/2016 No Stop Date Active Zyrtec 10 mg tablet RxNorm: 3421408 1 Tablet(s) PO daily 11/0312/02/2016 Inactive estradiol 0.5 mg tablet RxNorm: 032384 1 Tablet(s) PO BID 08/0301/15/2017 Inactive Transderm-Scop 1.5 mg transdermal patch (1 mg over 3 days) RxNorm: 577138 1 Patch TD Q72H 08/03/2016 09/01/2016 Inactive trospium 20 mg tablet RxNorm: 779767 1 Tablet(s) PO BID 201504/17/2018 Active trospium 20 mg tablet RxNorm: 296701 1 Tablet(s) PO BID 201511/21/2016 Inactive Valtrex 1 gram tablet RxNorm: 825718 1 Tablet(s) PO TID as needed 05/04/2016 05/07/2016 Inactive Valtrex 1 gram tablet RxNorm: 149644 1 Tablet(s) PO TID as needed 05/04/2016 05/03/2016 Inactive lisinopril 10 mg tablet RxNorm: 025636 1 Tablet(s) PO daily 12/06/2016 Inactive estradiol 1 mg tablet RxNorm: 445355 Tablet(s) 1 TABLET(S) PO DAILY 04/29/2016 08/02/2016 Inactive metformin 500 mg tablet RxNorm: 869095 1/2 Tablet(s) PO BID 01/201601/15/2017 Inactive estradiol 1 mg tablet RxNorm: 300162 Tablet(s) 1 TABLET(S) PO DAILY 02/17/2016 04/28/2016 Inactive citalopram 20 mg tablet RxNorm: 351537 1 Tablet(s) PO daily 12/06/2016 Inactive atorvastatin 10 mg tablet RxNorm: 872050 1/2 Tablet(s) PO daily 01/12/2016 12/06/2016 Inactive atorvastatin 10 mg tablet RxNorm: 261204 1/2 Tablet(s) PO daily 01/05/2016 01/11/2016 Inactive lisinopril 10 mg tablet RxNorm: 467720 2 Tablet(s) PO daily 04/28/2016 Inactive citalopram 20 mg tablet RxNorm: 789058 1 Tablet(s) PO daily 01/11/2016 Inactive betamethasone valerate 0.1 % topical cream RxNorm: 187009 1 Application TOP TID as needed 12/31/2015 No Stop Date Active prednisone 20 mg tablet RxNorm: 221502 3 Tablet(s) PO daily 11/08/2015 Inactive estradiol 1 mg tablet RxNorm: 535020 1 TABLET(S) PO DAILY 201402/16/2016 Inactive aspirin 81 mg capsule,delayed release RxNorm: 687948 1 Capsule(s) PO daily 09/08/2015 09/01/2016 Inactive naproxen 500 mg tablet RxNorm: 060812 1 Tablet(s) PO BID as needed for pain 09/08/2015 09/01/2016 Inactive nystatin 100,000 unit/gram topical cream RxNorm: 548689 1 Gram(s) TOP TID 09/08/2015 09/27/2015 Inactive naproxen 500 mg tablet RxNorm: 324394 1 Tablet(s) PO BID as needed for pain 09/08/2015 09/07/2015 Inactive alprazolam 0.25 mg tablet RxNorm: 081730 1 Tablet(s) PO TID as needed 08/17/2015 04/20/2017 Inactive atorvastatin 10 mg tablet RxNorm: 571038 1/2 Tablet(s) PO daily 05/07/2015 01/04/2016 Inactive estradiol 1 mg tablet RxNorm: 115258 1 Tablet(s) PO daily 201408/12/2015 Inactive metformin 500 mg tablet RxNorm: 032395 1/2 Tablet(s) PO BID 11/201402/16/2016 Inactive citalopram 20 mg tablet RxNorm: 460986 1 Tablet(s) PO daily 11/201401/04/2016 Inactive metformin 500 mg tablet RxNorm: 523514 1/2 Tablet(s) PO QHS x1 week then increase to 1/2 BID 12/23/2014 02/09/2015 Inactive metformin 500 mg tablet RxNorm: 647365 1/2 Tablet(s) PO BID 07/201501/14/2015 Inactive metformin 500 mg tablet RxNorm: 767066 1/2 Tablet(s) PO QHS x1 week then 1/2 tab po BID there after 12/23/2014 12/22/2014 Inactive metformin 500 mg tablet RxNorm: 952846 1/2 Tablet(s) PO BID 07/201512/22/2014 Inactive Kenalog 40 mg/mL suspension for injection RxNorm: 2400001 1 Milliliter(s) Inj 12/19/2014 12/19/2014 Inactive lisinopril 10 mg tablet RxNorm: 796989 1 Tablet(s) PO daily 01/04/2016 Inactive alprazolam 0.25 mg tablet RxNorm: 094250 1 Tablet(s) PO TID as needed 12/10/2014 08/16/2015 Inactive trospium 20 mg tablet RxNorm: 372360 1 Tablet(s) PO BID START WITH DAILY, AND INCREASE TO BID IF NEEDED FOR TX OF INCONTINENCE 12/10/2014 07/26/2016 Inactive trospium 20 mg tablet RxNorm: 188048 1 Tablet(s) PO BID START WITH DAILY, AND INCREASE TO BID IF NEEDED FOR TX OF INCONTINENCE 11/28/2014 12/09/2014 Inactive trospium 20 mg tablet RxNorm: 664465 1 Tablet(s) PO BID START WITH DAILY, AND INCREASE TO BID IF NEEDED FOR TX OF INCONTINENCE 11/28/2014 11/27/2014 Inactive lisinopril 10 mg tablet RxNorm: 240926 TAKE ONE TABLET BY MOUTH DAILY 11/17/2014 12/16/2014 Inactive Vesicare 10 mg tablet RxNorm: 381762 1 Tablet(s) PO daily 201411/27/2014 Inactive lisinopril 10 mg tablet RxNorm: 348915 1 Tablet(s) PO daily 12/09/2014 Inactive lisinopril 10 mg tablet RxNorm: 438443 1 Tablet(s) PO daily 10/04/2014 Inactive citalopram 20 mg tablet RxNorm: 097319 1 Tablet(s) PO daily 01/14/2015 Inactive Vesicare 10 mg tablet RxNorm: 866483 1 Tablet(s) PO daily 201311/16/2014 Inactive lisinopril 10 mg tablet RxNorm: 194797 1/2 Tablet(s) PO daily 05/07/2014 06/05/2014 Inactive Belviq 10 mg tablet RxNorm: 4277870 1 Tablet(s) PO BID 201309/04/2014 Inactive atorvastatin 10 mg tablet RxNorm: 486584 1/2 Tablet(s) PO daily 05/07/2014 06/05/2014 Inactive citalopram 20 mg tablet RxNorm: 263418 1/2 Tablet(s) PO daily 05/07/2014 06/05/2014 Inactive estradiol 1 mg tablet RxNorm: 338287 1 Tablet(s) PO daily 201306/05/2014 Inactive Vitamin D3 1,000 unit capsule RxNorm: 773938 Capsule(s) PO daily No Start Date Active Centrum Silver tablet RxNorm: 1 Tablet(s) PO daily No Start Date Active Caltrate 600 + D oral RxNorm: 537783 oral No Start Date Active naproxen 500 mg tablet RxNorm: 732281 1 Tablet(s) PO BID as needed No Start Date 05/06/2014 Inactive Vesicare 10 mg tablet RxNorm: 823494 1 Tablet(s) PO daily No Start Date 07/20/2014 Inactive alprazolam 0.25 mg tablet RxNorm: 318535 1 Tablet(s) PO TID as needed No Start Date 12/09/2014 Inactive Medication Administered Medication Codes Instructions Start Date Status Kenalog 40 mg/mL suspension for injection RxNorm: 6349071 1Milliliter 12/19/2014 No longer Active Immunizations Vaccine Codes Date Status Influenza CVX: 141 07/24/2017 completed Influenza CVX: 141 07/27/2016 completed Influenza CVX: 141 08/16/2015 completed Influenza CVX: 141 07/16/2013 completed Pneumococcal Unknown 07/16/2012 completed Assessments Condition Codes Effective Dates Essential (primary) hypertension ICD-10: I10 ICD-9: 401.1 07/24/2017 Encounter for immunization ICD-10: Z23 ICD-9: V04.81 07/24/2017 Type 2 diabetes mellitus without complications ICD-10: E11.9 ICD-9: 250.00 07/24/2017 Type 2 diabetes mellitus with diabetic autonomic (poly)neuropathy ICD-10: E11.43 ICD-9: 250.60 07/24/2017 Encounter for screening mammogram for malignant neoplasm of breast ICD-10: Z12.31 ICD-9: V76.12 06/08/2017 Mixed hyperlipidemia ICD-10: E78.2 ICD-9: 272.4 06/08/2017 Other obesity due to excess calories ICD-10: E66.09 ICD-9: 278.00 06/08/2017 Mixed incontinence ICD-10: N39.46 ICD-9: 788.33 12/07/2016 Mixed hyperlipidemia ICD-10: E78.2 ICD-9: 272.2 12/07/2016 Other acute sinusitis ICD-10: J01.80 ICD-9: 461.8 11/30/2016 Acute nasopharyngitis [common cold] ICD-10: J00 ICD-9: 460 11/03/2016 Other allergic rhinitis ICD-10: J30.89 ICD-9: 477.8 11/03/2016 Inflamed seborrheic keratosis ICD-10: L82.0 ICD-9: [...] Visit Reason For Visit Effective Dates Notes diabetes mellitus 07/24/2017 hypertension 06/08/2017 hypertension 12/07/2016 [...] Item Item Code Result Date Comp Metabolic Mhr462 NA 140 mEq/L 06/01/2017 Comp Metabolic Rmq338 K 3.9 mEq/L 06/01/2017 Comp Metabolic Qkm136 CL 105 mEq/L 06/01/2017 Comp Metabolic Ebn755 CO2 27.0 mEq/L 06/01/2017 Comp Metabolic Wsx110 ANION GAP 12 06/01/2017 Comp Metabolic Xog112 GLUCOSE 103 mg/dL 06/01/2017 Comp Metabolic Szo060 Creat 0.8 mg/dL 06/01/2017 Comp Metabolic Njt070 eGFR 82 ml/min/1.73m2 06/01/2017 Comp Metabolic Fei073 BUN 16 mg/dL 06/01/2017 Comp Metabolic Gyd349 B/C Ratio 21.3 Ratio 06/01/2017 Comp Metabolic Hpf982 CALCIUM 8.8 mg/dL 06/01/2017 Comp Metabolic Ncw443 ALK PHOS 61 U/L 06/01/2017 Comp Metabolic Wzl021 AST(SGOT) 17 U/L 06/01/2017 Comp Metabolic Jmm160 ALT(SGPT) 14 U/L 06/01/2017 Comp Metabolic Qqj367 BILI T 0.8 mg/dL 06/01/2017 Comp Metabolic Frq185 ALBUMIN 3.6 g/dL 06/01/2017 Comp Metabolic Wpn331 TPRO 6.1 g/dL 06/01/2017 Comp Metabolic Vok263 GLOB 2.5 g/dL 06/01/2017 Comp Metabolic Krd370 A/G Ratio 1.5 Ratio 06/01/2017 Comp Metabolic Vgc365 Osmo 281 mOsmo 06/01/2017 %Hba1C Whg757 % HbA1c 01882-4 5.9 % 06/01/2017 %Hba1C Ivf389 Gluc Ave 123 mg/dL 06/01/2017 Lipid Ord30 [...] 27.3 % 06/01/2017 Cbc With Differential Ord2 [place]% 7.6 % 06/01/2017 Cbc With Differential Ord2 [...] 1.48 K/ul 06/01/2017 Cbc With Differential Ord2 [place] ABS# 0.4 K/ul 06/01/2017 Cbc With Differential Ord2 Eos ABS# 0.4 K/ul 06/01/2017 Cbc With Differential Ord2 Baso ABS# 0.1 K/ul 06/01/2017 Comp Metabolic Geq746 NA 139 mEq/L 11/30/2016 Comp Metabolic Qzy638 K 4.1 mEq/L 11/30/2016 Comp Metabolic Zdb844 CL 102 mEq/L 11/30/2016 Comp Metabolic Eks867 CO2 30.0 mEq/L 11/30/2016 Comp Metabolic Ndg530 ANION GAP 11 11/30/2016 Comp Metabolic Gqb434 GLUCOSE 93 mg/dL 11/30/2016 Comp Metabolic Krc709 Creat 0.9 mg/dL 11/30/2016 Comp Metabolic Cdz710 eGFR 68 ml/min/1.73m2 11/30/2016 Comp Metabolic Gbd089 BUN 15 mg/dL 11/30/2016 Comp Metabolic Jwg083 B/C Ratio 17.0 Ratio 11/30/2016 Comp Metabolic Clj829 CALCIUM 9.6 mg/dL 11/30/2016 Comp Metabolic Tdk702 ALK PHOS 61 U/L 11/30/2016 Comp Metabolic Iju753 AST(SGOT) 19 U/L 11/30/2016 Comp Metabolic Gwf029 ALT(SGPT) 14 U/L 11/30/2016 Comp Metabolic Uxe339 BILI T 0.7 mg/dL 11/30/2016 Comp Metabolic Ncr403 ALBUMIN 4.0 g/dL 11/30/2016 Comp Metabolic Enb159 TPRO 6.6 g/dL 11/30/2016 Comp Metabolic Ccx587 GLOB 2.6 g/dL 11/30/2016 Comp Metabolic Pvz305 A/G Ratio 1.5 Ratio 11/30/2016 Comp Metabolic Cdb061 Osmo 278 mOsmo 11/30/2016 Lipid Ord30 CHOL 161 mg/dL 11/30/2016 Lipid Ord30 HDL 69.0 mg/dl 11/30/2016 Lipid Ord30 TRIG 82 mg/dL 11/30/2016 Lipid Ord30 LDL 76 mg/dL 11/30/2016 Lipid Ord30 C/HDL 2.3 Ratio 11/30/2016 %Hba1C Wiw547 % HbA1c 42780-7 5.8 % 11/30/2016 %Hba1C Ayz055 Gluc Ave 120 mg/dL 11/30/2016 Cbc With [...] 29.6 pg 11/30/2016 Cbc With Differential Ord2 [place]% 5.4 % 11/30/2016 Cbc With Differential Ord2 [...] 1.39 K/ul 11/30/2016 Cbc With Differential Ord2 [place] ABS# 0.4 K/ul 11/30/2016 Cbc With Differential Ord2 Eos ABS# 0.6 K/ul 11/30/2016 Cbc With Differential Ord2 Baso ABS# 0.1 K/ul 11/30/2016 %Hba1C Srg671 % HbA1c 72972-2 5.9 % 07/27/2016 %Hba1C Mif475 Gluc Ave 123 mg/dL 07/27/2016 Cbc With Differential Ord2 WBC 6.24 K/ul 07/27/2016 Cbc With Differential Ord2 RBC 4.12 M/ul 07/27/2016 Cbc With Differential Ord2 HGB 12.3 g/dl 07/27/2016 Cbc With Differential Ord2 Neut% 57.9 % 07/27/2016 Cbc With Differential Ord2 HCT 37.6 % 07/27/2016 Cbc With Differential Ord2 Lymph% 28.5 % 07/27/2016 Cbc With Differential Ord2 MCV 91.3 fl 07/27/2016 Cbc With Differential Ord2 [place]% 5.8 % 07/27/2016 Cbc With Differential Ord2 MCH 29.9 pg 07/27/2016 Cbc With Differential Ord2 MCHC 32.7 pg 07/27/2016 Cbc With Differential Ord2 Eos% 7.2 % 07/27/2016 Cbc With Differential Ord2 PLT 254 K/ul 07/27/2016 Cbc With Differential Ord2 Baso% 0.6 % 07/27/2016 Cbc With Differential Ord2 RDW 13.1 % 07/27/2016 Cbc With Differential Ord2 Neut ABS# 3.61 K/ul 07/27/2016 Cbc With Differential Ord2 Lymph ABS# 1.78 K/ul 07/27/2016 Cbc With Differential Ord2 [place] ABS# 0.4 K/ul 07/27/2016 Cbc With Differential Ord2 Eos ABS# 0.5 K/ul 07/27/2016 Cbc With Differential Ord2 Baso ABS# 0.0 K/ul 07/27/2016 Comp Metabolic Kng429 NA 137 mEq/L 07/27/2016 Comp Metabolic Vlp949 K 3.9 mEq/L 07/27/2016 Comp Metabolic Iri091 CL 103 mEq/L 07/27/2016 Comp Metabolic Blp624 CO2 27.0 mEq/L 07/27/2016 Comp Metabolic Gtp573 ANION GAP 11 07/27/2016 Comp Metabolic Ckg337 GLUCOSE 107 mg/dL 07/27/2016 Comp Metabolic Mxi949 Creat 0.9 mg/dL 07/27/2016 Comp Metabolic Nwa747 eGFR 71 ml/min/1.73m2 07/27/2016 Comp Metabolic Lnu583 BUN 22 mg/dL 07/27/2016 Comp Metabolic Tqu074 B/C Ratio 25.9 Ratio 07/27/2016 Comp Metabolic Lrf725 CALCIUM 9.2 mg/dL 07/27/2016 Comp Metabolic Net475 ALK PHOS 66 U/L 07/27/2016 Comp Metabolic Drg942 AST(SGOT) 20 U/L 07/27/2016 Comp Metabolic Vlf093 ALT(SGPT) 15 U/L 07/27/2016 Comp Metabolic Joj176 BILI T 0.6 mg/dL 07/27/2016 Comp Metabolic Otk020 ALBUMIN 4.0 g/dL 07/27/2016 Comp Metabolic Dsv132 TPRO 6.5 g/dL 07/27/2016 Comp Metabolic Mbo794 GLOB 2.5 g/dL 07/27/2016 Comp Metabolic Ebt952 A/G Ratio 1.6 Ratio 07/27/2016 Comp Metabolic Bdj064 Osmo 278 mOsmo 07/27/2016 Lipid Ord30 CHOL 153 mg/dL 07/27/2016 Lipid Ord30 HDL 62.0 mg/dl 07/27/2016 Lipid Ord30 TRIG 82 mg/dL 07/27/2016 Lipid Ord30 LDL 75 mg/dL 07/27/2016 Lipid Ord30 C/HDL 2.5 Ratio 07/27/2016 Tsh Ord6 hTSH II 1.43 uIU/mL 07/27/2016 Tsh Ord6 hTSH II 1.00 uIU/mL 03/30/2016 Comp Metabolic Pql253 NA 137 mEq/L 03/30/2016 Comp Metabolic Dyq014 K 4.0 mEq/L 03/30/2016 Comp Metabolic Vgi720 CL 102 mEq/L 03/30/2016 Comp Metabolic Esp511 CO2 29.0 mEq/L 03/30/2016 Comp Metabolic Xmc697 ANION GAP 10 03/30/2016 Comp Metabolic Sor888 GLUCOSE 111 mg/dL 03/30/2016 Comp Metabolic Gzg006 Creat 1.0 mg/dL 03/30/2016 Comp Metabolic Xrt414 eGFR 61 ml/min/1.73m2 03/30/2016 Comp Metabolic Xet143 BUN 19 mg/dL 03/30/2016 Comp Metabolic Jqp295 B/C Ratio 19.6 Ratio 03/30/2016 Comp Metabolic Xjs757 CALCIUM 9.4 mg/dL 03/30/2016 Comp Metabolic Tzy144 ALK PHOS 64 U/L 03/30/2016 Comp Metabolic Hky184 AST(SGOT) 16 U/L 03/30/2016 Comp Metabolic Sfv384 ALT(SGPT) 15 U/L 03/30/2016 Comp Metabolic Oti949 BILI T 0.7 mg/dL 03/30/2016 Comp Metabolic Mts472 ALBUMIN 3.7 g/dL 03/30/2016 Comp Metabolic Pef338 TPRO 6.3 g/dL 03/30/2016 Comp Metabolic Gsg214 GLOB 2.6 g/dL 03/30/2016 Comp Metabolic Try570 A/G Ratio 1.4 Ratio 03/30/2016 Comp Metabolic Dcn816 Osmo 277 mOsmo 03/30/2016 Cbc With Differential Ord2 WBC 7.16 [...] 29.1 pg 03/30/2016 Cbc With Differential Ord2 [place]% 6.3 % 03/30/2016 Cbc With Differential Ord2 [...] 1.82 K/ul 03/30/2016 Cbc With Differential Ord2 [place] ABS# 0.5 K/ul 03/30/2016 Cbc With Differential Ord2 Eos ABS# 0.4 K/ul 03/30/2016 Cbc With Differential Ord2 Baso ABS# 0.1 K/ul 03/30/2016 %Hba1C Tve554 % HbA1c 79773-7 6.3 % 03/30/2016 %Hba1C Yjn957 Gluc Ave 134 mg/dL 03/30/2016 Lipid Ord30 CHOL 143 mg/dL 03/30/2016 Lipid Ord30 HDL 50.0 mg/dl 03/30/2016 Lipid Ord30 TRIG 128 mg/dL 03/30/2016 Lipid Ord30 LDL 67 mg/dL 03/30/2016 Lipid Ord30 C/HDL 2.9 Ratio 03/30/2016 Cbc With Differential Ord2 WBC 6.0 K/uL [...] With Differential Ord2 RDW 13.5 % 08/31/2015 %Hba1C Irj643 % HbA1c 13728-2 6.2 % 08/31/2015 %Hba1C Imc757 Gluc Ave 131 mg/dL 08/31/2015 Lipid Ord30 CHOL 157 mg/dL 08/31/2015 Lipid Ord30 HDL 64.0 mg/dl 08/31/2015 Lipid Ord30 TRIG 126 mg/dL 08/31/2015 Lipid Ord30 LDL 68 mg/dL 08/31/2015 Lipid Ord30 C/HDL 2.5 Ratio 08/31/2015 Comp Metabolic Cvp382 NA 143 mEq/L 08/31/2015 Comp Metabolic Ilx207 K 3.7 mEq/L 08/31/2015 Comp Metabolic Pme098 CL 105 mEq/L 08/31/2015 Comp Metabolic Utv343 CO2 24.0 mEq/L 08/31/2015 Comp Metabolic Aod651 ANION GAP 18 08/31/2015 Comp Metabolic Yhj411 GLUCOSE 110 mg/dL 08/31/2015 Comp Metabolic Xhn222 Creat 0.8 mg/dL 08/31/2015 Comp Metabolic Fil500 eGFR 77 ml/min/1.73m2 08/31/2015 Comp Metabolic Ilc257 BUN 14 mg/dL 08/31/2015 Comp Metabolic Kqv111 B/C Ratio 17.5 Ratio 08/31/2015 Comp Metabolic Bkx907 CALCIUM 8.8 mg/dL 08/31/2015 Comp Metabolic Mrc750 ALK PHOS 61 U/L 08/31/2015 Comp Metabolic Mwk864 AST(SGOT) 16 U/L 08/31/2015 Comp Metabolic Dkl416 ALT(SGPT) 14 U/L 08/31/2015 Comp Metabolic Ztf824 BILI T 0.5 mg/dL 08/31/2015 Comp Metabolic Ehw859 ALBUMIN 3.7 g/dL 08/31/2015 Comp Metabolic Teg438 TPRO 6.1 g/dL 08/31/2015 Comp Metabolic Rrc978 GLOB 2.4 g/dL 08/31/2015 Comp Metabolic Kje281 A/G Ratio 1.5 Ratio 08/31/2015 Comp Metabolic Ojs346 Osmo 286 mOsmo 08/31/2015 CBC 4010165 WBC 5.9 10e9/L 05/15/2014 CBC 5540160 RBC 4.08 10e12/L 05/15/2014 CBC 7999713 HGB 12.1 g/dL 05/15/2014 CBC 0342462 HCT DET 37.0 % 05/15/2014 CBC 1699637 MCV 90.7 fL 05/15/2014 CBC 8281287 MCH 29.7 pg 05/15/2014 CBC 7245207 MCHC 32.7 g/dL 05/15/2014 CBC 2860234 PLT 243 10e9/L 05/15/2014 CBC 9925655 MPV 10.4 fL 05/15/2014 CBC 9457674 MARIVN % 56.5 % 05/15/2014 CBC 9707096 LY % 29.8 % 05/15/2014 CBC 7651211 MON % 6.4 % 05/15/2014 CBC 4932973 EOS % 6.1 % 05/15/2014 CBC 7382915 BASO % 1.2 % 05/15/2014 CBC 1154892 RDW 12.9 % 05/15/2014 CBC 2849186 ABS MARVIN 3.33 10e9/L 05/15/2014 CBC 9981953 ABS LYMPH 1.76 10e9/L 05/15/2014 CBC 0506293 ABS MONO 0.38 10e9/L 05/15/2014 CBC 5967242 ABS EOS 0.36 10e9/L 05/15/2014 CBC 6341111 ABS BASO 0.07 10e9/L 05/15/2014 CBC 1693160 RDW-SD 42.1 fL 05/15/2014 A1C HPLC 1360618 A1C HPLC 42801-0 6.0 % 05/15/2014 CHEM 14 2921494 AST 21 U/L 05/15/2014 CHEM 14 9791848 ALT 16 IU/L 05/15/2014 CHEM 14 1601026 BUN 21 MG/DL 05/15/2014 CHEM 14 0514041 ALBUMIN 3.9 GM/DL 05/15/2014 CHEM 14 9069646 CHLORIDE 106 MMOL/L 05/15/2014 CHEM 14 3552380 BILI TOT 0.6 MG/DL 05/15/2014 CHEM 14 6445293 ALK PHOS 67 U/L 05/15/2014 CHEM 14 0861123 SODIUM 137 MMOL/L 05/15/2014 CHEM 14 7264345 CREATININE 1.00 MG/DL 05/15/2014 CHEM 14 8084492 CALCIUM 9.0 MG/DL 05/15/2014 CHEM 14 7001072 POTASSIUM 3.9 MMOL/L 05/15/2014 CHEM 14 3657357 PROT TOT 6.4 GM/DL 05/15/2014 CHEM 14 3655080 GLUCOSE 119 MG/DL 05/15/2014 CHEM 14 4371731 BICARB 24 MMOL/L 05/15/2014 CHEM 14 0314501 ANION GAP 7 MEQ/L 05/15/2014 TSH 2205902 TSH 1.749 uIU/ML 05/15/2014 LIPID GRP HDL TEST 64 MG/DL 05/15/2014 LIPID GRP TRIG 95 MG/DL 05/15/2014 LIPID GRP TEST LDL 84 MG/DL 05/15/2014 LIPID GRP CHOL 167 MG/DL 05/15/2014 LIPID GRP RCHOL/HDL 2.61 RATIO 05/15/2014 LIPID GRP NON-HDL CH 103 MG/DL 05/15/2014 GFR CALC 2172337 GFR AA >60 ML/MIN 05/15/2014 GFR CALC 5209962 GFR NON-AA 56.0L ML/MIN 05/15/2014 Review of Systems System Result Effective Dates Constitutional No recent illness 2016 Constitutional No [...] lesions 05/07/2014 None Procedures Procedure Codes Date IIV4 VACC NO PRSV 3 YRS+ IM CPT-4: 30152 07/24/2017 FLU VAC NO PRSV 4 JAIME 3 YRS+ CPT-4: 08614 07/24/2017 ADMIN INFLUENZA VIRUS VAC CPT-4: G0008 07/24/2017 IIV4 VACC NO PRSV 3 YRS+ IM CPT-4: 37372 07/24/2017 DESTRUCT PREMALG LES 2-14 CPT-4: 87454 08/03/2016 IMMUNIZATION ADMIN CPT -4: 73237 07/27/2016 FLU VACC 4 JAIME 3 YRS PLUS IM Formatting Model/CDA Sections, Assigned to/Aimee Weinberg CT: [id number] CPT-4: 50623Yszbjct 07/27/2016 INITIAL PREVENTIVE EXAM CPT-4: G0402 12/31/2015 DRAIN/INJECT JOINT/BURSA CPT-4: 01188 12/18/2014 TRIAMCINOLONE ACET INJ NOS CPT-4: J3301 12/18/2014 ROUTINE VENIPUNCTURE CPT-4: 99519 05/15/2014 Vital Signs Date Vital 07/24/2017 Blood Pressure 1: 118/74 Code : 8480-6 BMI: 37.4 Code : 63818-4 Heart Rate 1 : 80 bpm Height: 5'4" SpO2: 97% Weight: 218 lbs 06/08/2017 Blood Pressure 1: 120/72 Code : 8480-6 BMI: 37.0 Code : 53272-1 Heart Rate 1 : 77 bpm Height: 5'4" SpO2: 98% Weight: 215 lbs 8 oz 12/07/2016 Blood Pressure 1: 132/76 Code : 8480-6 BMI: 36.9 Code : 00624-7 Heart Rate 1 : 78 bpm Height: 5'4" SpO2: 97% Weight: 215 lbs 11/30/2016 Blood Pressure 1: 136/72 Code : 8480-6 BMI: 37.1 Code : 20096-8 Heart Rate 1 : 78 bpm Height: 5'4" SpO2: 97% Temperature: 36.7 (C) / 98.1 (F) Weight: 216 lbs 11/03/2016 Blood Pressure 1: 130/86 Code : 8480-6 Heart Rate 1: 75 bpm Height: SpO2: 98% Weight: 08/03/2016 Blood Pressure 1: 120/76 Code : 8480-6 BMI: 37.4 Code : 41474-0 Heart Rate 1 : 72 bpm Height: 5'4" SpO2: 98% Weight: 218 lbs 04/05/2016 Blood Pressure 1: 110/70 Code : 8480-6 BMI: 38.9 Code : 35318-0 Heart Rate 1 : 87 bpm Height: 5'4" SpO2: 97% Weight: 226 lbs 8 oz 12/31/2015 Blood Pressure 1: 140/78 Code : 8480-6 BMI: 44.1 Code : 50385-3 Heart Rate 1 : 74 bpm Height: 5'4" SpO2: 97% Waist Measure (cm): 117 cm Weight: 257 lbs 11/04/2015 Blood Pressure 1: 148/62 Code : 8480-6 BMI: 44.1 Code : 18725-9 Heart Rate 1 : 67 bpm Height: 5'3" SpO2: 96% Weight: 249 lbs 09/08/2015 Blood Pressure 1: 140/80 Code : 8480-6 BMI: 44.3 Code : 75994-6 Heart Rate 1 : 88 bpm Height: 5'3" Weight: 250 lbs 02/19/2015 Blood Pressure 1: 132/84 Code : 8480-6 BMI: 45.5 Code : 38483-9 Heart Rate 1 : 64 bpm Height: 5'3" SpO2: 96% Weight: 257 lbs 12/18/2014 Blood Pressure 1: 136/80 Code : 8480-6 BMI: 45.3 Code : 56567-7 Heart Rate 1 : 80 bpm Height: 5'3" Weight: 256 lbs 12/10/2014 Blood Pressure 1: 140/78 Code : 8480-6 BMI: 45.3 Code : 20159-5 Heart Rate 1 : 74 bpm Height: 5'3" Weight: 256 lbs 09/05/2014 Blood Pressure 1: 158/90 Code : 8480-6 BMI: 45.0 Code : 91846-8 Heart Rate 1 : 72 bpm Height: 5'3" Weight: 254 lbs 08/01/2014 Blood Pressure 1: 138/70 Code : 8480-6 BMI: 44.6 Code : 85044-6 Heart Rate 1 : 70 bpm Height: 5'3" SpO2: 99% Weight: 252 lbs 05/07/2014 Blood Pressure 1: 136/78 Code : 8480-6 BMI: 43.4 Code : 63446-4 Heart Rate 1 : 75 bpm Height: 5'3" Respiratory Rate: 20 bpm Temperature: 36.6 ( C) / 97.8 (F) Weight: 245 lbs Functional Status No Functional Status data History of Present Illness Symptom Name Status Result Effective Date Notes hypertension Onset and Resolution ongoing 07/24/2017 None [...] 08/01/2014 None well woman exam (40-65 years) Breast/[place] Complaints urinary urgency 08/01/2014 "nothing different than before" takes vesicare well woman exam (40-65 years) Breast/[place] Complaints urinary incontinence 08/01/2014 None well woman exam (40-65 years) Breast/[place] Complaints pelvic pressure 08/01/2014 None well woman exam (40-65 years) Breast/[place] Complaints breast pain 08/01/2014 None well woman exam (40-65 years) Breast/[place] Complaints breast mass 08/01/2014 None well woman exam (40-65 years) Breast/[place] Complaints menopausal symptoms 08/01/2014 None well woman exam (40-65 years) Breast/[place] Complaints perimenopausal symptoms 08/01/2014 None well woman [...] Directive data Encounters Encounter Performer Location Codes [id number]) [id number] EST. PATIENT, LEVEL IV Diagnosis: Type 2 diabetes mellitus without complications[ICD10: E11.9] Diagnosis: Encounter for immunization[ICD10: Z23] Diagnosis: Essential (primary) hypertension[ICD10: I10] Diagnosis: Type 2 diabetes mellitus with diabetic autonomic (poly)neuropathy[ ICD10: E11.43] Inez Morris MD, [facility] CPT-4: 37802 07/24/2017 ([id number]) 57237 EST. PATIENT, LEVEL IV Diagnosis: Type 2 diabetes mellitus without complications[ICD10: E11.9] Diagnosis: Mixed hyperlipidemia[ICD10: E78.2] Diagnosis: Essential (primary) hypertension[ICD10: I10] Diagnosis: Other obesity due to excess calories[ICD10: E66.09] Diagnosis: Encounter for screening mammogram for malignant neoplasm of breast[ ICD10: Z12.31] Inez Morris MD, [facility] CPT-4: 02823 06/08/2017 ([id number]) 57763 EST. PATIENT, LEVEL IV Diagnosis: Essential (primary) hypertension[ICD10: I10] Diagnosis: Mixed incontinence[ICD10: N39.46] Diagnosis: Type 2 diabetes mellitus without complications[ICD10: E11.9] Diagnosis: Mixed hyperlipidemia[ICD10: E78.2] Inez Morris MD, [facility] CPT-4: 83733 12/07/2016 86670 EST. PATIENT, LEVEL IV Diagnosis: Mixed hyperlipidemia[ICD10: E78.2] Diagnosis: Other acute sinusitis[ICD10: J01.80] Qian Morris MD, [facility] CPT-4: 68067 11/30/2016 72112 EST. PATIENT, LEVEL III Diagnosis: Other allergic rhinitis[ICD10: J30.89] Diagnosis: Acute nasopharyngitis [common cold][ICD10: J00] Qian Morris MD, [facility] CPT-4: 98139 11/03/2016 ([id number]) 18788 EST. PATIENT, LEVEL IV Diagnosis: Mixed hyperlipidemia[ICD10: E78.2] Diagnosis: Type 2 diabetes mellitus without complications[ICD10: E11.9] Diagnosis: Actinic keratosis[ICD10: L57.0] Diagnosis: Inflamed seborrheic keratosis[ICD10: L82.0] Inez Morris MD, [facility] CPT-4: 04371 08/03/2016 ([id number]) 10556 EST. PATIENT, LEVEL IV Diagnosis: Type 2 diabetes mellitus without complications[ICD10: E11.9] Diagnosis: Essential (primary) hypertension[ICD10: I10] Diagnosis: Other obesity due to excess calories[ICD10: E66.09] Inez Morris MD [facility] CPT-4: 93505 04/05/2016 97905 EST. PATIENT, LEVEL III Diagnosis: Rash and other nonspecific skin eruption[ICD10: R21] Qian Morris MD, [facility] CPT-4: 36902 11/04/2015 ([id number]) PREV VISIT EST AGE 40-64 Diagnosis: Encounter for gynecological examination (general) (routine) without abnormal findings[ICD10: Z01.419] Inez Morris MD, [facility] CPT-4: 11111 09/08/2015 ([id number]) 37080 EST. PATIENT, LEVEL II Diagnosis: Right foot pain[ICD9: 729.5] Shiloh Morris MD, [facility] CPT-4: 52313 02/19/2015 ([id number]) 76841 EST. PATIENT, LEVEL IV Diagnosis: Plantar fascia syndrome[ICD9: 728.71] Diagnosis: Heel pain[ICD9: 729.5] Inez Morris MD, [facility] CPT-4: 72222 12/10/2014 ([id number]) 52575 EST. PATIENT, LEVEL IV Diagnosis: ESSENTIAL HYPERTENSION[ICD9: 401.9] Diagnosis: Depressive disorder[ICD9: 311] Inez Morris MD, [facility] CPT- 4: 84389 09/05/2014 ([id number]) PREV VISIT EST AGE 40-64 Diagnosis: ROUTINE GYNE EXAM[ICD9: V72.31] [facility] CPT- 4: 33725 08/01/2014 ([id number]) OFFICE VISIT, NEW - LEVEL 4 Diagnosis: ESSENTIAL HYPERTENSION[ICD9: 401.9] Diagnosis: OBESITY[ICD9: 278.00] Diagnosis: Urinary urgency[ICD9: 788.63] Diagnosis: Depressive disorder[ICD9: 311] Diagnosis: HYPERLIPIDEMIA[ICD9: 272.4] Diagnosis: Myalgia and myositis[ICD9: 729.1] [facility] CPT-4: 28991 05/07/2014 Plan of Care Planned Activity Notes [...] Recommended patient to take paperwork to her residential lawn specialist for diabetic shoes. 07/24/2017 Appointment: Inez Morris WPtel: [phone] [facility] (15 min) Moderate 07/24/2017 Patient Education: Patient [...] carbohydrates. 06/08/2017 Appointment: Inez Morris WPtel: [address] [facility] (15 min) Moderate 06/08/2017 Patient Education: Patient [...] pharmacy 12/07/2016 App[facility]ment: [phone] (15 min) Moderate 12/07/2016 Patient Education: Patient Medication Summary Completed 12/07/2016 Patient Education: Obesity Completed 12/07/2016 Care Plan: Referral Order SNOMED-CT : [id number] Pending 12/07/2016 Visit Plan: Sinusitis - Pt [...] pharmacy. 11/30/2016 Appointment: [facility] [place] (10 min) Simple 11/30/2016 Patient Education: [...] spray. 11/03/2016 Appointment: Qian Burgos WPtel: 101[address] [facility] (10 min) Simple 11/03/2016 Patient Education: Patient [...] acute concerns. 08/03/2016 Appointment: Inez Morris WPtel: [phone] [facility] [place] (15 min) Moderate 08/03/2016 Patient Education: [...] dietary changes. 04/05/2016 Appointment: Inez Morris WPtel: [facility] (15 min) Moderate 04/05/2016 Patient Education: [...] or prn. 09/08/2015 Appointment: Inez Morris WPtel: [facility] [facility] 09/08/2015 Patient Education: Patient [...] of injection. 12/18/2014 Appointment: Inez Morris WPtel: [facility] Follow up 12/18/2014 Patient Education: Patient [...] this patient. 09/05/2014 Appointment: Inez Morris WPtel: [address] [place], [place] [id number] Follow up 09/05/2014 Patient Education: Patient Medication [...] or prn. 08/01/2014 Appointment: Inez Morris WPtel: [address] [place], [place] [address] Well Woman 08/01/2014 Patient Education: Patient Medication Summary Completed 08/01/2014 Care Plan: PAP Pending 08/01/2014 Appointment: Inez Morris WPtel: [facility] [place] Follow up 06/26/2014 Appointment: Inez Morris WPtel: [facility] Lab Draw 05/15/2014 Patient Education: Patient [...] consider counseling. 05/07/2014 Appointment: Inez Morris WPtel: [address] [place] [address] New Patient 05/07/2014 Patient Education: Patient Medication Summary Completed 05/07/2014 Appointment: Inez Morris WPtel: [address] [place], [place] [phone] New Patient 04/30/2014 Appointment: Inez Morris WPtel: [address] [place] [address] New Patient 04/28/2014 Referral: Dr Packer Referral [...] Recommended patient to take paperwork to her residential lawn specialist for diabetic shoes. . Heel Injection [...] - RX sent to pharmacy Probiotic - NemeriX, Cleankeys, or generic while on the antibiotic. Sinusitis [...] - advised pt to consider counseling. . Well Adult Female - exam completed. Pap and breast exam completed. Pt will be called with results of her testing. She was advised to continue with yearly annual exams. Safe sex practices discussed during office visit today. Call if any abnormal gynecologic issues during the next year, otherwise, RTC yearly or prn.
--- OUTSIDE RECORDS SUMMARY | 2018-09-05 22:47 | XMS REPORT ---
Author FRANCESCA [facility] eClinicalWorks Address Unknown Phone Unavailable Care Team Providers Care Lead Security Officer Name Role Phone FRANCESCA GONZALEZ CP Unavailable Allergies No Known Allergies Problems Problem Type Condition Code Onset Dates Condition Status Assessment Encounter for immunization Z23 Active Medications No Known Medications Procedures Procedure Coding System Code Date SINGLE IMMUNIZATION ADMIN CPT-4 14565 Aug 31, 2015 TDAP (BOOSTRIX) CPT-4 26363 Aug 31, 2015 Results No Known Results Immunizations Vaccine Administration Date TDAP (BOOSTRIX) Aug 31, 2015 Summary Purpose eClinicalWorks Submission
--- OUTSIDE RECORDS SUMMARY | 2018-09-05 22:47 | XMS REPORT | Continuity of Care Document ---
Author Author [facility] Organization [facility] Address Unknown Phone Unavailable Allergies There is no data. Medications There is no data. Problems Date Dx Coded Attending Type Code Diagnosis Diagnosed By 08/29/2014 ANALIA RIVERS SITE FOREMAN Ot V76.12 04/01/2015 ANALIA RIVERS SITE FOREMAN Ot 729.5 04/01/2015 ANALIA RIVERS SITE FOREMAN Ot 729.81 08/20/2015 ANALIA RIVERS SITE FOREMAN Ot V76.12 08/20/2015 ANALIA RIVERSP Ot 729.5 08/20/2015 ANALIA RIVERS SITE FOREMAN Ot 729.81 09/02/2015 ANALIA RIVERS SITE FOREMAN Ot Z12.31 08/31/2016 ANALIA RIVERSP Ot V76.12 OTH SCREEN MAMMO-MALIGN NEOPLASM OF MAILE 08/31/2016 ANALIA RIVERS SITE FOREMAN Ot 729.5 PAIN IN LIMB 08/31/2016 ANALIA RIVERS SITE FOREMAN Ot 729.81 SWELLING OF LIMB 08/31/2016 ANALIA RIVERS SITE FOREMAN Ot Z12.31 ENCNTR SCREEN MAMMOGRAM FOR MALIGNANT NE 09/01/2016 NICKY PATEL MACHINE STAMPER Ot Z12.31 ENCNTR SCREEN MAMMOGRAM FOR MALIGNANT NE 09/21/2016 NICKY PATEL MACHINE STAMPER Ot Z12.31 ENCNTR SCREEN MAMMOGRAM FOR MALIGNANT NE 08/31/2017 NICKY PATEL MACHINE STAMPER Ot Z12.31 ENCNTR SCREEN MAMMOGRAM FOR MALIGNANT NE 08/31/2017 ANALIA RIVERS SITE FOREMAN Ot V76.12 OTH SCREEN MAMMO-MALIGN NEOPLASM OF MAILE 08/31/2017 ANALIA RIVERS SITE FOREMAN Ot 729.5 PAIN IN LIMB 08/31/2017 ANALIA RIVERS SITE FOREMAN Ot 729.81 SWELLING OF LIMB 08/31/2017 ANALIA RIVERS SITE FOREMAN Ot Z12.31 ENCNTR SCREEN MAMMOGRAM FOR MALIGNANT NE 08/31/2017 NICKY PATEL MACHINE STAMPER Ot Z12.31 ENCNTR SCREEN MAMMOGRAM FOR MALIGNANT NE 08/31/2017 NICKY PATEL MACHINE STAMPER Ot Z12.31 ENCNTR SCREEN MAMMOGRAM FOR MALIGNANT NE 09/04/2017 NICKY PATEL MACHINE STAMPER Ot Z12.31 ENCNTR SCREEN MAMMOGRAM FOR MALIGNANT NE 09/07/2017 NICKY PATEL MACHINE STAMPER Ot Z12.31 ENCNTR SCREEN MAMMOGRAM FOR MALIGNANT NE 09/26/2017 NICKY PATEL MACHINE STAMPER Ot Z12.31 ENCNTR SCREEN MAMMOGRAM FOR MALIGNANT NE 06/20/2018 ANALIA RIVERS SITE FOREMAN Ot V76.12 OTH SCREEN MAMMO-MALIGN NEOPLASM OF MAILE 06/20/2018 ANALIA RIVERS SITE FOREMAN Ot 729.5 PAIN IN LIMB 06/20/2018 ANALIA RIVERS SITE FOREMAN Ot 729.81 SWELLING OF LIMB 06/20/2018 ANALIA RIVERS SITE FOREMAN Ot Z12.31 ENCNTR SCREEN MAMMOGRAM FOR MALIGNANT NE 06/20/2018 NICKY PATEL MACHINE STAMPER Ot Z12.31 ENCNTR SCREEN MAMMOGRAM FOR MALIGNANT NE 06/20/2018 NICKY PATEL MACHINE STAMPER Ot Z12.31 ENCNTR SCREEN MAMMOGRAM FOR MALIGNANT NE 06/20/2018 GLORIA, ANUJA E MACHINE STAMPER Ot M79.604 PAIN IN RIGHT LEG 06/21/2018 GLORIA, ANUJA E MACHINE STAMPER Ot 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] 06/21/2018 GLORIA, ANUJA E MACHINE STAMPER Ot M79.604 PAIN IN RIGHT LEG 06/22/2018 GLORIA, ANUJA E MACHINE STAMPER Ot 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] 06/22/2018 GLORIA, ANUJA E MACHINE STAMPER Ot M79.604 PAIN IN RIGHT LEG 06/25/2018 GLORIA, ANUJA E MACHINE STAMPER Ot M17.11 UNILATERAL PRIMARY OSTEOARTHRITIS, RIGHT 06/25/2018 GLORIA, ANUJA E MACHINE STAMPER Ot M66.0 RUPTURE OF POPLITEAL CYST 07/12/2018 GLORIA, ANUJA E MACHINE STAMPER Ot M17.11 UNILATERAL PRIMARY OSTEOARTHRITIS, RIGHT 07/12/2018 GLORIA, ANUJA E MACHINE STAMPER Ot M66.0 RUPTURE OF POPLITEAL CYST 07/13/2018 ANUJA CASTRO MACHINE STAMPER Ot 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 Results There is no data. Encounters ACCT No. Visit Date/Time Discharge Status Pt. Type Provider Facility Loc./Unit Complaint [id number] 06/22/2018 08:39:00 06/22/2018 23:59:59 CLS Outpatient ANUJA CASTRO APRN [facility] RAD RT KNEE PAIN, RT LEG PAIN [id number] 06/20/2018 15:39:00 06/20/2018 23:59:59 CLS Outpatient ANUJA CASTRO APRN [facility] RAD RT LEG PAIN,POSSIBLE DVT [id number] 09/01/2017 09:34:00 09/01/2017 23:59:59 CLS Outpatient NICKY PATEL APRN [facility] RAD SCREENING [id number] 08/31/2016 08:53:00 08/31/2016 23:59:59 CLS Outpatient NICKY PATEL APRN [facility] RAD SCREENING [id number] 08/20/2015 12:56:00 08/20/2015 23:59:59 CLS Outpatient ANALIA RIVERSP [facility] RAD SCREENING [id number] 02/19/2015 10:25:00 02/19/2015 23:59:59 CLS Outpatient ANALIA RIVERS [facility] RAD RIGHT FOOT PAIN [id number] 08/13/2014 10:24:00 08/13/2014 23:59:59 CLS Outpatient ANALIA RIVERS [facility] RAD ROUTINE [id number] 09/05/2018 22:28:00 ACT Emergency MARK ESTRADA DO [facility] ER R LEG PAIN [id number] 07/20/2017 23:33:36 07/20/2017 23:59:59 [facility] Outpatient Inez Morris [email or web address] 02/20/2015 03:33:25 ACT Document Registration
--- NOTE | 2018-09-05 23:09 | ED Lower Extremity ---
General Chief Complaint: Lower Extremity Stated Complaint: R LEG PAIN Nursing Triage Note: PT REPORTS THAT TWO MONTHS AGO SHE HAD A GALDAMEZ CYST IN HER LEFT LEG, STATES SHE WAS WALKING AND IT BURST, CAUSING IMMENSE PAIN. PRESENTS TO THE ED TODAY EXPERIENCING SIMILAR PAIN TO THE LAST CYST RUPTURE. THE SAME LEG IS AFFECTED TODAY Nursing Sepsis Screen: No Definite Risk Source: patient, family (DAUGHTER) History of Present Illness Date Seen by Provider: Sep 05, 2018 Time Seen by Provider: 22:45 Initial Comments C/O SEVERE PAIN IN RIGHT KNEE, ESPECIALLY POSTERIOR ASPECT OF LEFT KNEE AND DOWN TO LEFT CALF PT STATES 2 1/2 MONTHS AGO, SHE STARTED HAVING PAIN IN THIS AREA, AND THEN ONE DAY SHE WAS WALKING AND HAD "FELT SOMETHING SNAP" IN HER POPLITEAL AREA AND HAD EXCRUCIATING PAIN SEEN HER ORTHOPEDIC SURGEON THAT SAME DAY AND HAD ULTRASOUND DONE, PT WAS CONCERNED ABOUT BLOOD CLOT ( DAUGHTER HAS HAD MULTIPLE BLOOD CLOTS AND P.E., BUT PT HAS NEVER HAD ONE) --DVT WAS RULED OUT. PT THEN HAD MRI WHICH SHOWED A RUPTURED GALDAMEZ'S CYST. SHE HAD PHYSICAL THERAPY AND HAS BEEN SLOWLY GETTING BETTER, BUT STARTED GETTING WORSE AGAIN A FEW DAYS AGO. TODAY, MID AFTERNOON, WHILE SHE WAS WALKING SHE HAD THE EXACT SAME THING HAPPEN- -FELT A POP BEHIND HER RIGHT KNEE AND HAS HAD EXCRUCIATING PAIN SINCE. TOOK 1 NAPROXEN AROUND 1900 TONIGHT WITHOUT RELIEF. HAS NOT TAKEN ANYTHING ELSE FOR PAIN IS HERE WANTING ULTRASOUND TO MAKE SURE SHE DOES NOT HAVE A BLOOD CLOT, AND MRI IF POSSIBLE. ALSO STATES RIGHT NOW SHE NEEDS "SOMETHING FOR PAIN BUT I DON'T WANT OPIOIDS" WE CURRENTLY DO NOT HAVE AFTER HOURS ULTRASOUND, OR MRI AFTER HOURS, AND ALSO WILL NOT BE ABLE TO HAVE TESTING DONE TOMORROW IT IS . ADVISED PT OF THIS AND IMMEDIATELY INSISTS THAT SHE GO SOMEWHERE ELSE RIGHT NOW TO HAVE THESE TESTS DONE TONIGHT. OFFERED XRAYS, CT SCAN AND PAIN MEDICATIONS BUT CANNOT DO ULTRASOUND TO RULE OUT DVT TONIGHT. ALSO OFFERED TO TREAT EMPIRICALLY FOR DVT AND ARRANGE FOR OUTPATIENT ULTRASOUND ON MONDAY, BUT PT INSISTS ON GETTING AN ANSWER TONIGHT PCP: DR. AYALA Allergies and Home Medications Allergies Coded Allergies: No Known Drug Allergies (Unverified , 09/05/18) Patient Home Medication List Home Medication List Reviewed: Yes Review of Systems Constitutional: no symptoms reported Cardiovascular: no symptoms reported Gastrointestinal: no symptoms reported Musculoskeletal: see HPI Skin: no symptoms reported Psychiatric/Neurological: No Symptoms Reported; Denies Numbness, Denies Paresthesia, Denies Weakness Past Djaqsap-Fgqrsy-Onelco Hx Patient Social History Alcohol Use: Denies Use Recreational Drug Use: No Smoking Status: Never a Smoker Recent Foreign Travel: No Contact w/Someone Who Travel: No Recent Infectious Disease Expo: No Recent Hopitalizations: No Immunizations Up To Date PED Vaccines UTD: Yes Seasonal Allergies Seasonal Allergies: No Past Medical History Surgeries: Yes (ROTATOR CUFF-BILATERAL;) Orthopedic, Tubal Ligation Respiratory: No Cardiac: Yes Hypertension Neurological: No : No 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 oz. 102.473496ll; BMI Method:Stated General Appearance: obese, other (TEARFUL) Cardiovascular: normal peripheral pulses, regular rate, rhythm, no edema Respiratory: normal breath sounds, no respiratory distress Legs: left leg normal inspection Knees: left knee normal inspection; right knee other (MARKED TENDERNESS TO RIGHT POPLITEAL AREA AND UPPER HALF OF RIGHT CALF. NO DISTAL SWELLING, DISTAL MOTOR/SENSORY/VASCULAR INTACT. UNABLE TO DO ANY TESTING FOR LIGAMENT LAXITY DUE TO PT DISCOMFORT. PT HOLDING LEG OUT IN FULL EXTENSION, DOES NOT WANT TO FLEX KNEE OR MOVE RIGHT LEG AT ALL. UNABLE TO APPRECIATE SIGNFICANT SWELLING. ) Ankles: bilateral ankle normal inspection Feet: bilateral foot normal inspection Neurologic/Tendon: normal sensation, normal motor functions Neurologic/Psychiatric: manager instrumentation II-XII nml as tested, no motor/sensory deficits, alert, oriented x 3 Skin: normal color, warm/dry, other (NO EXTERNAL EVIDENCE OF TRAUMA. NO ERYTHEMA OR WOUNDS/SORES/LESIONS, ETC. ) Procedures/Interventions Splinting and Joint Reduction : Cory wrap: Yes Progress/Results/Core Measures Results/Orders My Orders Orders - MARK ESTRADA DO Ketorolac Injection (Toradol Injection) (09/05/18 23:13) Cory Bandage (09/05/18 23:13) Knee Immobilizer (09/05/18 23:13) Ketorolac Injection (Toradol Injection) (09/05/18 23:22) Vital Signs/I&O 09/05/18 22:34 Temp 98.7 Pulse 75 Resp 20 B/P (MAP) 150/72 (98) Blood Pressure Mean: 98 Progress Progress Note : Progress Note CORY WRAP PLACED ON KNEE UNABLE TO FIT KNEE IMMOBILIZER ON PT GIVEN TORADOL FOR PAIN Departure Communication (Admissions) [id number]--CALLED [facility] DIRECT CALL --PT PREFERENCE [phone]--SPOKE WITH DR. CHATTERJEE, ACCEPTS PT FOR TRANSFER. PT WILL BE GOING BY POV Impression Primary Impression: RIGHT POPLITEAL KNEE PAIN Additional Impression: HX OF RIGHT GALDAMEZ'S CYST RUPTURE Disposition: 02 XFER SHT-TRM HOSP Condition: Stable Departure-Patient Inst. Referrals: RINKU AYALA MD (PCP/Family) Primary Care Physician MARK ESTRADA DO Sep 05, 2018 23:09
[2018-09-05] MEDS: KETOROLAC 30 MG/ML VIAL ONE (23:38)
[2018-09-05] MEDS: KETOROLAC 60 MG/2 ML VIAL IM STA (23:38)
[2018-09-06 00:05] VITALS: BP 170/79
== END 2018-09-06 00:05 | disposition short-term general hospital (02) ==
LOC: EDUNIT# 22:27 → ER 22:28
DX: M25.561 Pain in right knee (principal); I10 Essential (primary) hypertension; E11.9 Type 2 diabetes mellitus without complications; Z98.51 Tubal ligation status

== ENCOUNTER → 2018-09-11 | Outpatient (CLI) | payer MEDICARE ==
--- NOTE | 2018-09-11 09:43 | Diagnostic Imaging Report ---
PROCEDURE: MRI right joint lower extremity without contrast. TECHNIQUE: Multiplanar, multisequence MR imaging of the right knee was performed without contrast. COMPARISON: Right knee MRI of 09/11/2018. INDICATION: Right knee pain. FINDINGS: MENISCI Medial meniscus: Intrasubstance degeneration within the medial meniscus. However, there is no medial meniscal tear. Lateral meniscus: Complete versus near-complete radial tear of the posterior root insertional fibers of the lateral horn. The body of the lateral meniscus is partially extruded into the lateral gutter. LIGAMENTS ACL: Intact. PCL: Intact. MCL: Intact. LCL: The lateral collateral ligamentous complex is intact. EXTENSOR MECHANISM The extensor mechanism is intact. CARTILAGE Medial compartment: There is a broad area of full-thickness articular cartilage loss in the central weightbearing aspect of the medial femoral condyle and opposing tibial plateau with underlying subchondral bone marrow edema like signal. Lateral compartment: The lateral compartment articular cartilage is preserved without high-grade chondromalacia. Patellofemoral compartment: Focal full-thickness chondral fissuring and underlying subchondral bone marrow edema in the lateral patellar facet and patellar ridge. BONE No fracture, stress fracture or osteonecrosis. SOFT TISSUE Small decompressed Dowell's cyst persist and remain similar in size. No knee joint effusion. IMPRESSION: 1. Complete versus near-complete radial tear in the lateral meniscus at its posterior root insertion. The body of the lateral meniscus is partially extruded into the lateral gutter. 2. Degenerative articular cartilage loss is greatest in the medial and patellofemoral compartments. Dictated by: Dictated on workstation # [id number]
== END ==
LOC: RAD 07:05
PROVIDERS: ATTEND Nurse Practitioner Family
DX: M94.8X8 Other specified disorders of cartilage, other site (principal); M25.561 Pain in right knee
CPT/HCPCS: 73721

== ENCOUNTER → 2018-10-10 | Outpatient (CLI) | payer MEDICARE ==
--- NOTE | 2018-10-10 12:00 | Diagnostic Imaging Report ---
INDICATION: Routine screening. COMPARISON: Comparison is made with prior mammograms from 09/01/2017 and 08/31/2016. TECHNIQUE: 2D and 3D bilateral screening mammography was performed with computer-aided detection (CAD) system. FINDINGS: Scattered fibroglandular densities are identified bilaterally. No dominant mass or malignant-appearing microcalcifications are seen. The axillae are unremarkable. IMPRESSION: No mammographic features suspicious for malignancy are identified. ACR BI-RADS Category 1: Negative. Result letter will be mailed to the patient. Note: At least 10% of breast cancer is not imaged by mammography. Dictated by: Dictated on workstation # [id number]
== END ==
LOC: RAD 09:26
PROVIDERS: ATTEND Nurse Practitioner Family
DX: Z12.31 Encounter for screening mammogram for malignant neoplasm of breast (principal)
CPT/HCPCS: 77067

== ENCOUNTER → 2019-10-11 | Outpatient (CLI) | payer MEDICARE ==
--- NOTE | 2019-10-11 12:03 | Diagnostic Imaging Report ---
INDICATION: Routine screening. Comparison is made with prior mammogram from 10/10/2018 at 09/01/2017. 2-D and 3-D bilateral screening mammography was performed with CAD. Scattered fibroglandular densities are identified bilaterally. An intraparenchymal lymph node upper outer left breast is noted. No dominant mass or malignant appearing microcalcifications are seen. There are benign calcifications. Axillae are unremarkable. IMPRESSION: BI-RADS Category 2 No mammographic features suspicious for malignancy are identified. ACR BI-RADS Category 2: Benign findings. Result letter will be mailed to the patient. Note: At least 10% of breast cancer is not imaged by mammography. Dictated by: Dictated on workstation # [id number]
== END ==
LOC: RAD 08:16
PROVIDERS: ATTEND Nurse Practitioner Family
DX: Z12.31 Encounter for screening mammogram for malignant neoplasm of breast (principal)
CPT/HCPCS: 77067

== ENCOUNTER → 2020-10-12 | Outpatient (CLI) | payer MEDICARE, OTHER ==
--- NOTE | 2020-10-12 12:10 | Diagnostic Imaging Report ---
INDICATION: Routine screening. Comparison is made with prior mammogram from 10/11/2019 and 10/10/2018. 2-D and 3-D bilateral screening mammography was performed with CAD. Scattered fibroglandular densities are identified bilaterally. Intraparenchymal lymph node upper left breast is stable. No new mass or malignant-appearing microcalcifications are seen. Axillae are unremarkable. IMPRESSION: BI-RADS Category 2 No mammographic features suspicious for malignancy are identified. ACR BI-RADS Category 2: Benign findings. Result letter will be mailed to the patient. Note: At least 10% of breast cancer is not imaged by mammography. Dictated by: Dictated on workstation # [id number]
== END ==
LOC: RAD 07:30
PROVIDERS: ATTEND Nurse Practitioner Family
DX: Z12.31 Encounter for screening mammogram for malignant neoplasm of breast (principal)
CPT/HCPCS: 77063; 77067

== ENCOUNTER → 2021-10-15 | Outpatient (CLI) | payer MEDICARE, OTHER ==
--- NOTE | 2021-10-15 09:39 | Diagnostic Imaging Report ---
EXAM: Digital mammogram, bilateral screening. COMPARISON: This study was compared to the prior exams of 10/12/2020, 10/11/2019 and 10/10/2018. At this time, there are no current complaints. The current study was also evaluated with a Computer Aided Detection (CAD) system. FINDINGS: There are scattered fibroglandular densities in both breasts which could obscure a lesion. Overall, there does not appear to have been any significant change when compared to the prior exam. No primary or secondary sign of malignancy is noted. IMPRESSION: There is no radiographic evidence for malignancy. ACR category 1 ACR BI-RADS Category 1: Negative. Result letter will be mailed to the patient. Note: At least 10% of breast cancer is not imaged by mammography. Dictated by: Dictated on workstation # [id number]
== END ==
LOC: RAD 08:45
PROVIDERS: ATTEND Family Medicine
DX: Z12.31 Encounter for screening mammogram for malignant neoplasm of breast (principal); E89.40 Asymptomatic postprocedural ovarian failure
CPT/HCPCS: 77063; 77067

== ENCOUNTER → 2021-10-26 | Outpatient (CLI) | payer MEDICARE, OTHER ==
--- NOTE | 2021-10-26 11:12 | Diagnostic Imaging Report ---
INDICATION: Postmenopausal screening COMPARISON: Baseline FINDINGS: AP Spine L1-L4: [BMD (g/cm2): 1.083] [T-Score: -1.0] [Z-Score: 0.0] [BMD Previous: NA] [BMD % Change: NA] LT Hip Neck: [BMD (g/cm2): 0.757] [T-Score: -2.0] [Z-Score: -0.8] LT Hip Total: [BMD (g/cm2):0.886] [T-Score:-1.0] [Z-Score: 0.0] [BMD Previous: NA] [BMD % Change: NA] RT Hip Neck: [BMD (g/cm2):0.768] [T-Score:-1.9] [Z-Score:-0.7] RT Hip Total: [BMD (g/cm2):0.865] [T-score:-1.1] [Z-Score:-0.1] [BMD Previous:NA] [BMD % Change:NA] *Indicates significant change from prior examination based on 95% confidence level. World Health Organization criteria for BMD interpretation classify patients as Normal (T-score at or above -1.0), Osteopenic (T-score between -1.0 and -2.5) or Osteoporotic (T-score at or below -2.5). LIMITATIONS AND MODIFICATION: None. FRACTURE RISK (FRAX SCORE): The ten year probability of (%): Major Osteoporotic Fracture: [18.2] Hip Fracture: [3.5] IMPRESSION: 1. Osteopenia (Low bone mass). 2. Baseline examination. 3. See below National Osteoporosis Foundation guidelines on when to potentially initiate pharmacologic therapy. Based on the National Osteoporosis Foundation Guidelines, pharmacologic treatment should be initiated in any of the following, unless clinical conditions suggest otherwise: * Any patient with prior fragility fracture of the hip or vertebrae. A spine fracture indicates 5X risk for subsequent spine fracture and 2X risk for subsequent hip fracture. * Osteoporosis (T-score <-2.5). * Postmenopausal women and men age 50 and older with low bone mass/osteopenia (T-score between -1.0 and -2.5) by DXA and 10-year major osteoporotic fracture greater than 20% or a 10-year probability of hip fracture greater than 3%. These fracture risks are supplied above in the FRAX score, if applicable. * Clinician judgement and/or patient preferences may indicate treatment for people with 10-year fracture probabilities above or below these levels. Dictated by: Dictated on workstation # [id number]
== END ==
LOC: RAD 09:00
PROVIDERS: ATTEND Family Medicine
DX: Z12.31 Encounter for screening mammogram for malignant neoplasm of breast (principal); E89.40 Asymptomatic postprocedural ovarian failure; M85.88 Other specified disorders of bone density and structure, other site; Z78.0 Asymptomatic menopausal state
CPT/HCPCS: 77080

== ENCOUNTER 2022-08-09 09:42 | Outpatient (RCR) | payer MEDICARE, OTHER | END 2022-08-15 | disposition home or self-care (01) | PROVIDERS: ATTEND Family Medicine | DX: R32 Unspecified urinary incontinence (principal); I10 Essential (primary) hypertension; E11.9 Type 2 diabetes mellitus without complications ==

== ENCOUNTER 2022-08-30 09:45 | Outpatient (RCR) | payer MEDICARE, OTHER | END 2022-08-30 11:14 | disposition home or self-care (01) | PROVIDERS: ATTEND Family Medicine | DX: R32 Unspecified urinary incontinence (principal); I10 Essential (primary) hypertension; E11.9 Type 2 diabetes mellitus without complications ==

== ENCOUNTER → 2022-12-20 | Outpatient (CLI) | payer MEDICARE, OTHER ==
--- NOTE | 2022-12-20 11:18 | Diagnostic Imaging Report ---
INDICATION: Routine screening. COMPARISON: 10/15/2021 and 10/12/2020. TECHNIQUE: 2D and 3D bilateral screening mammography was performed with CAD. FINDINGS: Scattered fibroglandular densities are identified bilaterally. An intraparenchymal lymph node the outer left breast is stable. No spiculated mass or malignant-appearing microcalcifications are seen. Axillae are unremarkable. IMPRESSION: No mammographic features suspicious for malignancy are identified. ACR BI-RADS Category 2: Benign findings. Result letter will be mailed to the patient. Note: At least 10% of breast cancer is not imaged by mammography. Dictated by: Dictated on workstation # [id number]
== END ==
LOC: RAD 09:24
PROVIDERS: ATTEND Family Medicine
DX: Z12.31 Encounter for screening mammogram for malignant neoplasm of breast (principal)
CPT/HCPCS: 77063; 77067